=== PATIENT | female | born 1970 | race Hispanic/Latino ===

== ENCOUNTER 2017-11-02 13:03 | Inpatient (IN) | payer MEDICARE ==
--- NOTE | 2017-11-02 13:54 | RAD ---
UPRIGHT PORTABLE CHEST 1 VIEW: HISTORY: A 47-year-old female with a history of nausea and vomiting. FINDINGS: Right ICD. Minimal cardiomegaly. Mild bilateral vascular congestion without confluent pneumonia or overt edema. IMPRESSION: Cardiomegaly with bilateral vascular congestion without other significant acute process. Right impla ntable cardioverter defibrillator. Stable appearance from 09/22/16. POS: [facility]
[2017-11-02 14:21] LABS: Hemoglobin 11.6 g/dL (12.0-16.0); INR-International Normal Ratio 3.2; Mean Corpuscular HGB CONC 32.8 g/dL (32.0-36.0); Mean Corpuscular Hemoglobin 35.1 pg (27.0-31.0); Mean Platelet Volume 11.4 fL (7.4-10.4); PTT 48.7 SEC (22.9-36.1); Platelet Count 64 thou/uL (130-400); Prothrombin Time 34.2 SEC (12.0-14.7); RBC Distribution Width 15.7 % (11.5-14.5); White Blood Cell (WBC) Count 9.2 thou/uL (4.8-10.8)
[2017-11-02 14:34] LABS: Anisocytosis SLIGHT = 6-15 cells (100X) (0-5/hpf); Band 24 % (5-11); Lymphocytes 2 % (21-51); MDiff Complete? YES; Macrocytosis SLIGHT = 6-15 cells (100X) (0-5/hpf); Monocytes 1 % (0-10); Neutrophil 73 % (42-75); PLT Morphology Comment Appears Decreased; Polychromasia SLIGHT = 2-3 cells (100X) (0-2/hpf)
[2017-11-02 14:38] LABS: Anion Gap 25 mmol/L (10-20); BUN (Urea Nitrogen) 43 mg/dL (7.0-18.7); Calc. Creatinine Clearance 0 mL/min (70-130); Calcium 8.8 mg/dL (7.8-10.44); Carbon Dioxide 20 mmol/L (22-29); Chloride 91 mmol/L (98-107); Estimated GFR-MDRD 7; Glucose 165 mg/dL (70-105); Lipase 5 U/L (8-78); Potassium 3.3 mmol/L (3.5-5.1); Sodium 133 mmol/L (136-145)
[2017-11-02 14:49] LABS: CKMB 22.3 ng/mL (0-6.6); Troponin I 0.389 ng/mL (< 0.028)
[2017-11-02] MEDS ORDERED: Aspirin 325 MG TAB ONE (16:35)
[2017-11-02] MEDS ORDERED: cefTRIAXone\\ROCEPHIN 2 GM in Sodium Chloride 0.9% 100 ML IVPB ONE (16:45)
[2017-11-02] MEDS ORDERED: Nitroglycerin 0.4 MG TAB (25 Tab Bottle) SL PRN (18:02)
[2017-11-02] MEDS ORDERED: Bisacodyl 5 MG TAB PO PRN (18:02)
[2017-11-02] MEDS ORDERED: Vancomycin HCl 1 GM in Premix Bag 1 BAG IVPB SCH ×2 (18:15→22:00)
[2017-11-02] MEDS ORDERED: Oseltamivir 6 MG/ML ORAL SUSP PO SCH (18:15)
[2017-11-02] MEDS ORDERED: [UNRECOGNIZED DRUG - REMARK] IVPB PRN (18:16)
[2017-11-02] MEDS ORDERED: Acetaminophen 500 MG TAB ONE (18:26)
[2017-11-02 18:36] LABS: Critical Call Chem Troponin I RESULT DECREASING; Troponin I 0.359 ng/mL (< 0.028)
[2017-11-02] MEDS ORDERED: Dextrose 5% in Water 1,000 ML IV PRN (19:45)
[2017-11-02] MEDS ORDERED: Dextrose 50% Abboject 50 ML SYRINGE SLOW IVP PRN (19:45)
--- NOTE | 2017-11-02 19:59 | HP ---
PRIMARY CARE PHYSICIAN: Unknown. CHIEF COMPLAINT: Chest pain. HISTORY OF PRESENT ILLNESS: Ms. Joseph is a pleasant 47-year-old lady who was seen at [facility] on 11/02/2017. She reports that over the last week, she has had on and off left-sided chest pain, sharp, 10/10 at it s worst, nonradiating, no known aggravating or relieving factors and accompanied by nausea, shortness of breath and cough. She also reports that over the last 2 days, she has had body aches. She reports feeling sick. She r eports nausea and vomiting. She reports shortness of breath. She did not receive the flu vaccine . She denies any sick contacts. She reports that her dialysis session was shortened yesterda y, but is not sure why. She reportedly told the emergency room physician that it felt similar to whe n she had line sepsis. However, she denied having line sepsis in the past. REVIEW OF SYSTEMS: The following complete review of systems was negative, unless otherwise mentioned in the HPI or below: Constitutional: Weight loss or gain, ability to conduct usual activities. Skin: Rash, itching. Eyes: Double vision, pain. ENT/Mouth: Nose bleeding, neck stiffness, pain, tenderness. Cardiovascular: Palpitations, dyspnea on exertion, orthopnea. Respiratory: Shortness of breath, wheezing, cough, hemoptysis, fever or night sweats. Gastrointestinal: Poor appetite, abdominal pain, heartburn, nausea, vomiting, constipation, or diarr hea. Genitourinary: Urgency, frequency, dysuria, nocturia. Musculoskeletal: Pain, swelling. Neurologic/Psychiatric: Anxiety, depression. Allergy/Immunologic: Skin rash, bleeding tendency. PAST MEDICAL HISTORY: Significant for end-stage renal disease on hemodialysis followed by Dr. Laboy; yoon hunter on Tuesday, , and Tuesday; diabetes mellitus type 2; dyslipidemia; hypertension; joanie betic gastroparesis; seizure disorder; symptomatic bradycardia requiring pacemaker placement; cardiac arrest secondary to hyperkalemia; chronic left eye blindness; peripheral vascular disease, status po st left below knee amputation; gastroesophageal reflux disease; and chronic pain. PAST SURGICAL HISTORY: Significant for left below knee amputation, left eye surgery, right second fi nger amputation, amputation of multiple toes on the right side, bilateral tubal ligation, cholecystec donna, dialysis catheter placement and surgeries for clotted dialysis access. ALLERGIES: No known drug allergies. FAMILY HISTORY: Significant for end-stage renal disease. SOCIAL HISTORY: The patient denies tobacco use, alcohol use or recreational drug use. CURRENT MEDICATIONS: Vitamin D3 2000 units daily, phenytoin 150 mg daily, Zofran 4 mg sublingually a s needed, warfarin 2.5 mg daily, benzonatate 100 mg as needed, clonidine 0.1 mg 2 times a day, amlodi pine 5 mg daily, metoprolol 50 mg daily, ProRenal vitamins 1 tablet daily, quetiapine 25 mg at bedtim e. PHYSICAL EXAMINATION: GENERAL: On examination, Ms. Joseph is awake and alert, not in acute distress. VITAL SIGNS: Blood pressure is 102/52, pulse is 89. She is breathing at rate of 22 and saturating 9 3% on 2 liters of oxygen. Temperature is 100.3 degrees Fahrenheit. EYES: No scleral icterus. No conjunctival pallor. She has left corneal opacity. ENT: Moist mucosal membranes, no oropharyngeal erythema or exudates. NECK: Supple, nontender, normal range of movement, trachea is midline. RESPIRATORY: Accessory muscles of breathing are not active. Chest wall movements are symmetric bila terally. LUNGS: Clear to auscultation without wheeze, rhonchi or crepitations CARDIOVASCULAR: S1 and S2 are heard, regular. Peripheral pulses palpable in the right lower extremi ty and both upper extremities. She has a left upper extremity AV fistula. She also has a right-side d pacemaker. ABDOMEN: Soft, nontender, bowel sounds heard, hepatomegaly, no splenomegaly. MUSCULOSKELETAL: Power is 5/5 in both upper extremities as well as right lower extremity. She is st atus post left below knee amputation, status post right second and third toe amputation, status post right second digit amputation. SKIN: No rashes or subcutaneous nodules. LYMPHATIC: No cervical lymphadenopathy. NEUROLOGIC: Cranial nerves II-XII intact. PSYCHIATRIC: Normal mood, normal affect, patient is oriented to person and place, not to time. IMAGING DATA AND LABORATORY DATA: Ms. Joseph's labs and investigations were reviewed. I reviewed her electrocardiogram, which shows normal sinus rhythm, with ST depressions in the lateral leads. I also reviewed her chest x-ray, which does not show any pulmonary infiltrates. She does have vascular congestion. Laboratory investigation show normal white count, macrocytic anemia with hemoglobin 11.6, thrombocyto penia with platelet count 64, INR 3.2, hyponatremia with sodium 133, hypokalemia with potassium 3.3, elevated anion gap of 20, elevated creatinine of 6.3, elevated blood urea nitrogen of 43, troponin I elevated at 0.359, trending down from 0.389, elevated BNP of 2515. I should note that she has a normal white count of 9,200, although she has 73% neutrophils and 24% ba nd neutrophils. ASSESSMENT AND PLAN: Mr. Joseph is a pleasant 47-year-old lady who was seen at [facility] on 11/02/2017. Her problem list includes: 1. Elevated troponin: She had minimal coronary artery disease in 03/2013. The elevated troponin co uld be secondary to non-ST elevation myocardial infarction or secondary to viral myocarditis or secon mignon to sepsis or secondary to demand ischemia. She will be admitted to the hospital for further man agement. She will be started on aspirin. I will order 2D echocardiogram. Cardiology Service is silverio meng consulted. She will be monitored on telemetry. 2. Infection: Suspected. She does not meet the criteria for sepsis. However, she does have elevat ed bands as well as a viral prodrome. She also reports chills. For now, she will be covered with an tibiotics to cover any possible bloodstream infections. She will also be started on Tamiflu. We geovanny l await cultures. 3. End-stage renal disease. Nephrology Service will be consulted for maintenance hemodialysis. 4. Diabetes mellitus: We will start patient on Accu-Cheks, insulin sliding scale. 5. Hypertension: We will monitor vital signs and titrate antihypertensives as needed. Many thanks for allowing me to participate in your patient's care. Please feel free to contact me wi th any questions or concerns. LEVEL OF RISK: High. LEVEL OF COMPLEXITY: High.
[2017-11-02 20:49] LABS: Critical Call Chem Troponin I RESULT DECREASING; Troponin I 0.319 ng/mL (< 0.028)
[2017-11-02] MEDS ORDERED: Vancomycin HCl 750 MG in Sodium Chloride 0.9% 250 ML 250 ML IVPB SCH (22:00)
[2017-11-02] MEDS ORDERED: HOLD VANCOMYCIN FOR LEVEL >20 FS SCH (22:00)
[2017-11-02] MEDS ORDERED: Vancomycin HCl 1.25 GM in Sodium Chloride 0.9% 250 ML 250 ML IVPB SCH (22:00)
[2017-11-02] MEDS ORDERED: Vancomycin HCl 500 MG in Sodium Chloride 0.9% 100 ML IVPB SCH (22:00)
[2017-11-02] MEDS: Acetaminophen 325 MG TAB PO PRN (22:47)
[2017-11-03] MEDS: Piperacillin/Tazobactam 2.25 GM in Sodium Chloride 0.9% 50 ML IVPB SCH ×2 (00:07→08:55)
[2017-11-03] MEDS ORDERED: Ibuprofen 600 MG TAB PO SCH (00:30)
[2017-11-03 00:54] VITALS: BMI 31.0
[2017-11-03] MEDS: Acetaminophen 325 MG TAB PO PRN ×2 (06:13→19:09)
[2017-11-03 06:16] LABS: Anion Gap 23 mmol/L (10-20); BUN (Urea Nitrogen) 51 mg/dL (7.0-18.7); Calc. Creatinine Clearance 14 mL/min (70-130); Calcium 8.2 mg/dL (7.8-10.44); Carbon Dioxide 18 mmol/L (22-29); Estimated GFR-MDRD 6; Glucose 138 mg/dL (70-105); Potassium 3.3 mmol/L (3.5-5.1); Sodium 131 mmol/L (136-145)
[2017-11-03 06:17] LABS: Chloride 93 mmol/L (98-107)
[2017-11-03 06:22] LABS: Band 23 % (5-11); Lymphocytes 5 % (21-51); MDiff Complete? YES; Mean Corpuscular HGB CONC 30.6 g/dL (32.0-36.0); Mean Corpuscular Hemoglobin 32.7 pg (27.0-31.0); Mean Platelet Volume 12.7 fL (7.4-10.4); Monocytes 5 % (0-10); Neutrophil 67 % (42-75); PLT Morphology Comment Appears Decreased; Platelet Count 42 thou/uL (130-400); RBC Distribution Width 16.2 % (11.5-14.5); Red Blood Cell (RBC) Count 3.66 mill/uL (4.20-5.40); White Blood Cell (WBC) Count 10.6 thou/uL (4.8-10.8)
[2017-11-03] MEDS: Oseltamivir 6 MG/ML ORAL SUSP PO SCH (08:53)
[2017-11-03] MEDS ORDERED: Sodium Chloride 0.9% 250 ML 250 ML IVPB SCH (09:00)
[2017-11-03] MEDS ORDERED: Aspirin 325 MG TAB PO SCH (09:00)
[2017-11-03 09:20] LABS: Vancomycin, Random 10.9 ug/mL (See Comment)
--- NOTE | 2017-11-03 09:58 | CON ---
DATE OF CONSULTATION: 11/03/2017 HISTORY OF PRESENT ILLNESS: Ms. Joseph is a 47-year-old White female with known history o f end-stage renal disease and admitted for chest pain and mild shortness of breath. She was also not ed to be febrile. She has been empirically treated with IV antibiotics. This morning, she was noted to be hypotensive. I have ordered to give her a bolus of normal saline at 250 mL per hour. We are currently holding her dialysis due to the hypotension. We are following up this patient for her main tenance hemodialysis. REVIEW OF SYSTEMS: Occasional chest pain, mild shortness of breath. No syncopal episode. Positive for fever. No dysuria, no urinary frequency. No hematochezia, no melena, no hematemesis, no abdomin al pain. Appetite and energy level is decreased. No headache. Decreased visual acuity. No diplopi a. MEDICATIONS: Of 11/03/2017 shows aspirin 325 mg every day, status post flu vaccine, Humalog sliding scale, Reglan p.r.n., status post vancomycin, Tamiflu 30 mg every day, Zosyn 2.25 grams IV q.12 hours . PAST MEDICAL HISTORY: ESRD, currently on maintenance hemodialysis, secondary to hypertension/diabeti c nephropathy, history of hypertension, seizure disorder - history of noncompliance, status post card iac arrest, peripheral vascular disease, history of depression. PAST SURGICAL HISTORY: 1. Status post left BKA. 2. Status post AV fistula placement. 3. Status post cuffed dialysis catheter placement. 4. Status post bilateral tubal ligation. 5. Status post open cholecystectomy. 6. Status post left eye surgery. SOCIAL HISTORY: The patient is . Lives in [place]. Several children. Sedentary lifestyle. S tatus post blood transfusion. No smoking, no alcohol intake, no IV drug abuse. Education, high scho ol. FAMILY HISTORY: Positive family history of ESRD. ALLERGIES: None. TRAUMA: None. IMMUNIZATIONS: Up to date. HOSPITALIZATIONS: Please see past medical history. PHYSICAL EXAMINATION: VITAL SIGNS: Blood pressure is noted at 70/50 with heart rate 78, temperature 100.6, respiratory rat e 22, pulse ox 96%. GENERAL: Noted to be awake, alert, supine, comfortable, decreased visual acuity. HEENT: She has pinkish conjunctivae, anicteric sclerae. NECK: No neck mass, no carotid bruits, no JVD. CHEST: No deformities. LUNGS: Clear breath sounds. No wheezing, no crackles. HEART: Normal sinus rhythm. No murmur, no gallops or rubs. ABDOMEN: Globular, soft, nontender, no masses. EXTREMITIES: No edema, status post left BKA. X-RAY FINDINGS: Chest x-ray shows increased lung markings. LABORATORY DATA: Of 11/03/2017, white count 10.6, hemoglobin 12. Sodium 131, potassium 3.3, chlorid e 93, carbon dioxide 18, BUN 51, creatinine 7.02, glucose 138, calcium 8.2. ASSESSMENT AND PLAN: 1. End-stage renal disease - due to the low blood pressure, we will hold the hemodialysis today. Th e patient is not in overt volume overload. She is oxygenating adequately. In addition, there is no hyperkalemia. My plan is to schedule her for her regular dialysis in a.m. 2. Chest pain. The patient being ruled out for myocardial infarction. 3. Fever, empiric IV antibiotics. This could be a viral versus bacterial etiology. She is on Tamif angel and IV antibiotics. 4. Anemia, no indication for any Epogen this day. Agree with current management.
[2017-11-03] MEDS ORDERED: Sodium Chloride 0.9% 3,000 ML IV SCH ×2 (11:45→15:15)
--- NOTE | 2017-11-03 11:49 | CON ---
DATE OF CONSULTATION: 11/03/2017 REASON FOR CONSULTATION: Slightly increased troponin level in the setting of chest pain and end-stag e renal disease. HISTORY OF PRESENT ILLNESS: Ms. Joseph is a 47-year-old woman with a long history of dialysis. Guy banks has been having some left-sided chest pain that is sharp. It is, she says, 10 out of 10 when it oc curs. It is localizing, take one fingertip and point towards an area in the left side of her chest. She also had some body aches, feeling sick, nausea, vomiting and has low grade fever, and typical an geena. REVIEW OF SYSTEMS: Constitutional: Positive for weakness, fatigue. Vision: No changes. Hearing: No changes. Pulmonary: Positive for some difficulty breathing on occasion. Currently, br eathing well. Cardiac: As outlined above. Gastrointestinal: No nausea, vomiting, diarrhea. Skin: No rashes. Neurologic: No unilateral weakness or numbness. Psychiatric: No unusual depression o r anxiety. PAST MEDICAL HISTORY: 1. End-stage renal disease on chronic hemodialysis Tuesday, , and Tuesday. 2. Diabetes. 3. Hypertension. 4. Minimal coronary artery disease and catheterization several years ago, it will be outlined below. 5. Previous pacemaker insertion for bradycardia. 6. Status post left lower extremity amputation, below the knee. 7. Esophageal reflux. ALLERGIES: None known. FAMILY HISTORY: Significant for end-stage renal disease. SOCIAL HISTORY: No tobacco or alcohol. MEDICATIONS PRIOR TO ADMISSION: 1. Vitamin D. 2. Phenytoin 3. Zofran 4. Warfarin 5. Clonidine. 6. Amlodipine. PHYSICAL EXAMINATION: GENERAL: She is a very pleasant, but chronically ill appearing woman. She looks much older than her chronologic age of 47. VITAL SIGNS: Her blood pressure is 83/59, pulse 86. EYES: Sclerae nonicteric. Mouth, mucous membranes is moist. NECK: Supple, no lymphadenopathy. LUNGS: Clear, no wheezing, rales or rhonchi. CARDIOVASCULAR: Normal S1, normal S2. No murmur, rub or gallop. ABDOMEN: Soft, nontender, no hepatosplenomegaly. EXTREMITIES: Warm, dry, no clubbing or cyanosis. There is no edema. She has below knee amputation on the left, it appears to be nonhealing wound on the right foot. PERTINENT LABORATORY DATA: The troponin level of 0.319, creatinine 7. She has 23% bands. White cou nt is 10.6. Of significance, the temperature is 101.7. IMAGING: EKG, no acute changes. Reviewing the records, she did have a cardiac catheterization done in 03/2017, at that time was found to have only minimal atherosclerosis, 30% proximal LAD, no other s ignificant disease. ASSESSMENT: 1. Chest pain, atypical for angina. 2. Fever. 3. End-stage renal disease. 4. Previous pacemaker insertion. 5. Minimal coronary artery disease and previous catheterization. At this time, it looks like most l ikely the increased troponin level due to demand ischemia. PLAN: 1. She is being treated for infection. 2. Echocardiogram. 3. At some point, stress test will hold off until the fever has resolved.
[2017-11-03] MEDS ORDERED: Ondansetron HCl/PF 4 MG/2 ML Vial SLOW IVP PRN (11:56)
[2017-11-03] MEDS ORDERED: Ondansetron HCl/PF 4 MG/2 ML Vial SLOW IVP SCH (12:00)
--- NOTE | 2017-11-03 14:40 | PDOC.PN ---
- Subjective Encounter Start Date: 11/03/17 Encounter Start Time: 08:20 Pt seen for followup re: bacteremia. denies chest pain or shortness of breath - Objective MAR Reviewed: Yes Vital Signs & Weight: Vital Signs (12 hours) Temp Pulse Resp BP Pulse Ox 11/03/17 11:05 97.0 F L 76 19 75/54 L 95 11/03/17 08:55 98 F 84 18 94 L 11/03/17 03:52 100.6 F H 78 22 H 83/59 L 96 Weight Weight 192 lb 8 oz I&O: 11/02/17 11/03/17 11/04/17 06:59 06:59 06:59 Intake Total 460 Balance 460 Result Diagrams: 11/04/17 05:09 11/04/17 05:09 Additional Labs: Accuchecks 11/03/17 11/03/17 11/03/17 10:52 05:52 00:24 POC Glucose 129 H 146 H 131 H EKG Reviewed by me: Yes (Tele: NSR, ? run of NSVT) Phys Exam - Physical Examination Constitutional: NAD HEENT: PERRLA, moist MMs, sclera anicteric, oral pharynx no lesions Neck: no nodes, no JVD, supple, full ROM Respiratory: no wheezing, no rales, no rhonchi, clear to auscultation bilateral Cardiovascular: RRR, no rub Gastrointestinal: soft, non-tender, positive bowel sounds Musculoskeletal: pulses present s/p L BKA Neurological: moves all 4 limbs Psychiatric: normal affect Deviation from normal: Skin tears R knee, R lateral malleolus Dx/Plan (1) Bacteremia Code(s): R78.81 - BACTEREMIA Status: Acute (2) Hypokalemia Code(s): E87.6 - HYPOKALEMIA Status: Acute (3) Sepsis Code(s): A41.9 - SEPSIS, UNSPECIFIED ORGANISM Status: Acute (4) Elevated troponin I level Code(s): R74.8 - ABNORMAL LEVELS OF OTHER SERUM ENZYMES Status: Acute (5) ESRD (end stage renal disease) on dialysis Code(s): N18.6 - END STAGE RENAL DISEASE; Z99.2 - DEPENDENCE ON RENAL DIALYSIS Status: Chronic - Plan continue antibiotics * . Elevated troponin likely due to demand ischemia. Await Review of Systems - Review of Systems Constitutional: weakness. negative: fever, chills, sweats, malaise Respiratory: negative: Cough, Dry, Shortness of Breath, Hemoptysis, SOB with Excertion, Pleuritic Pain, Sputum, Wheezing Cardiovascular: negative: chest pain, palpitations, orthopnea, paroxysmal nocturnal dyspnea, edema, light headedness Gastrointestinal: Nausea, Vomiting. negative: Abdominal Pain, Diarrhea, Constipation, Melena, Hematochezia Neurological: Weakness. negative: Numbness, Incoordination, Change in Speech, Confusion, Seizures - Medications/Allergies Allergies/Adverse Reactions: Allergies Allergy/AdvReac Type Severity Reaction Status Date / Time No Known Drug Allergies Allergy Verified 11/03/17 11:31 Medications: Current Medications Acetaminophen (Tylenol) 650 mg PO Q4H PRN PRN Reason: Headache/Fever or Pain Last Admin: 11/03/17 06:13 Dose: 650 mg Aspirin (Aspirin Chewable) 81 mg PO DAILY TEENA Bisacodyl (Dulcolax) 10 mg PO DAILYPRN PRN PRN Reason: Constipation Dextrose/Water (Dextrose 50%) 25 gm SLOW IVP PRN PRN PRN Reason: Hypoglycemia Glucagon (Glucagon) 1 mg IM PRN PRN PRN Reason: Hypoglycemia Piperacillin Sod/Tazobactam (Sod 2.25 gm/ Sodium Chloride) 50 mls @ 100 mls/hr IVPB Q12HR [facility] Last Admin: 11/03/17 08:55 Dose: 50 mls Dextrose/Water (D5w) 1,000 mls @ 0 mls/hr IV .Q0M PRN; As Directed PRN Reason: Hypoglycemia Vancomycin HCl 1.25 gm/ Sodium (Chloride) 250 mls @ 166.667 mls/hr IVPB WILLCALL TEENA Vancomycin HCl 1 gm/ Device 200 mls @ 200 mls/hr IVPB WILLCALL TEENA Vancomycin HCl 750 mg/ Sodium (Chloride) 250 mls @ 250 mls/hr IVPB WILLCALL TEENA Vancomycin HCl 500 mg/ Sodium (Chloride) 100 mls @ 100 mls/hr IVPB WILLCALL TEENA Sodium Chloride (Normal Saline 0.9%) 3,000 mls @ 0 mls/hr IV .Q0M TEENA PRN Reason: As Directed Stop: 11/03/17 15:00 Influenza Virus Vaccine (Fluzone Quad [id number] Syringe) 0.5 ml IM .ONCE ONE Stop: 11/04/17 09:01 Insulin Human Lispro (Humalog) 0 units SC .MILD SLIDING SCALE PRN PRN Reason: Mild Correctional Scale Miscellaneous Medication (Pharmacy To Dose) 1 each IVPB PRN PRN PRN Reason: Pharmacy to dose Nitroglycerin (Nitrostat) 0.4 mg SL Q5MIN PRN PRN Reason: Chest Pain Hold Vancomycin For (Level >20) 0 each FS .AT DIALYSIS [facility] Ondansetron HCl (Zofran) 4 mg SLOW IVP Q6H PRN PRN Reason: Nausea/Vomiting Last Admin: 11/03/17 14:24 Dose: 4 mg Oseltamivir Phosphate (Tamiflu) 30 mg PO DAILY [facility] Stop: 11/07/17 09:01 Last Admin: 11/03/17 08:53 Dose: 30 mg Sodium Chloride (Flush - Normal Saline) 10 ml IVF Q12HR [facility] Last Admin: 11/03/17 09:08 Dose: 10 ml Sodium Chloride (Flush - Normal Saline) 10 ml IVF PRN PRN PRN Reason: Saline Flush
--- NOTE | 2017-11-03 15:21 | CON ---
DATE OF SERVICE: 11/03/2017 SERVICE: Pulmonary Medicine. REASON FOR CONSULTATION: IMCU patient. HISTORY OF PRESENT ILLNESS: The patient is a 47-year-old female with end-stage renal diselillian banks. She was in her usual state of health up until about one week prior to admission at which point amisha banks started having increasing fatigue, fevers, or chills. She presented to dialysis, but this had to b e stopped early, but she is not quite certain why. [facility] low blood pressures ultimately. She is also having some difficulties with chest pain. This al l has resolved. At this point, she is returning to her usual state of health, though her blood press ures remained marginal. Blood cultures were performed demonstrating Staph aureus in one blood cultur e and gram positive cocci in clusters in the other. She is on appropriate antibiotics at this time. She has no current distress. She does not feel lightheaded, nausea or vomiting. Creatinine is at b aseline. Her brain is working just fine. Lactate on presentation was unremarkable. PAST MEDICAL HISTORY: 1. End-stage renal disease, on hemodialysis, TTS. 2. Type 2 diabetes mellitus. 3. Dyslipidemia. 4. Hypertension (baseline blood pressure is in 180s). 5. Gastroparesis. 6. Seizure disorder. 7. History of bradycardia, status post pacemaker placement. 8. History of cardiac arrest secondary to hyperkalemia. 9. Left eye blindness. 10. Peripheral vascular disease status post multiple amputations. PAST SURGICAL HISTORY: 1. Left BKA. 2. Left eye surgery. 3. Right second finger amputation. 4. Right second and third toe amputations. 5. Bilateral tubal ligation. 6. Cholecystectomy. 7. Dialysis catheter placement, multiple. 8. Dialysis graft in the left arm. FAMILY HISTORY: Noncontributory. SOCIAL HISTORY: Negative for alcohol, tobacco or illicit drug use. ALLERGIES: No known drug allergies. MEDICATIONS: List of her inpatient medications was reviewed. There are no specific updates were bet ter at this time. REVIEW OF SYSTEMS: General, head, ears, eyes, nose, throat, cardiovascular, respiratory, GI, , mus culoskeletal, neurologic and skin is negative except as mentioned in the HPI. PHYSICAL EXAMINATION: VITAL SIGNS: Afebrile currently with T-max of 101.7 overnight, pulse 76, blood pressure 83/59, respi rations 19, saturation 95% on 2 liters nasal cannula. GENERAL: The patient is awake, alert, in no apparent distress. LUNGS: Excellent air entry. Some rhonchi are present, but cleared with cough. No prolonged expirat ory phase or wheezing is appreciated. HEART: Normal rate, regular. ABDOMEN: Soft, nontender, nondistended, bowel sounds positive. MUSCULOSKELETAL: No cyanosis or clubbing. There is no pitting in the bilateral lower extremities. If anything, she is to touch drive. GENITOURINARY: No Winkler. NEUROLOGIC: Grossly nonfocal. LABORATORY DATA: 1. Sodium 131, potassium 3.3, anion gap 23, bicarbonate 18. Creatinine 7.02. Basic metabolic profi le was otherwise unremarkable. Troponin is up trending to 0.319. Vancomycin is 10.9, this is a rand study. 2. Staph aureus is growing in one blood culture. Gram positive cocci in clusters are present in the other. Influenza A and B are both unremarkable. ASSESSMENT: 1. Acute hypoxic respiratory failure. 2. Severe sepsis, improving. 3. Bacteremia secondary to Staphylococcus aureus, sensitivity is pending. 4. Non-ST elevation myocardial infarction. 5. End-stage renal disease, on hemodialysis. 6. Type 2 diabetes mellitus. PLAN: The patient is doing fine from a cardiovascular and respiratory standpoint. At this point, th ere are no signs of end organ damage. She does have marginal blood pressures, but seems to be tolera ting them just fine. I will give her 2 liters of fluid. I will also repeat lactate. If this remain s negative, and her blood pressures firm up to touch, I will leave where she. If lactate is elevated , I will give a third liter of fluids, and consider putting in a central line and initiating pressors if the CVP is low. For the time being, she looks perfectly comfortable and is not having any proble ms with ongoing chest discomfort or dizziness. As such, we will continue her conservative care. Agr ee with antibiotics since we already have should likely be able to be escalated only to vancomycin mo notherapy. I will have Dr. Carlson however in the way.
[2017-11-03 15:31] LABS: Lactic Acid 1.2 mmol/L (0.5-2.2)
--- NOTE | 2017-11-04 00:19 | CON ---
DATE OF CONSULTATION: 11/03/2017 REASON FOR CONSULTATION: Bacteremia. HISTORY OF PRESENT ILLNESS: A 47-year-old patient whom I had seen in the past for I believe the foot infection who has a history of type 2 diabetes mellitus with end-stage renal disease. The patient h as a very extensive history of admissions to this hospital for various complications. Last admission to this hospital on 09/22/2016 for UTI secondary to E. coli and sepsis. This time she was admitted by the hospitalist service with new onset of left-sided chest pain, some nausea and dyspnea as well a s cough with myalgias, had some vomiting as well. Initial exam showed BP 102/52, pulse 89, respirati ons 22, O2 sat 92%, temperature 100.3. Lungs are clear to auscultation. Heart exam showed S1, S2 wi th regular rate. Abdomen is soft. She is moving all extremities. LABORATORY: Initially with a white cell count 9.2, hemoglobin 11, MCV 107, platelets 64,000, 73% darleen trophils, 2% lymphocytes, 24% bands. Chemistry with expected findings from the patient, end-stage re nal disease and patient was admitted and had 2 sets of blood cultures positive for Staphylococcus aur eus which is methicillin susceptible strain. Currently, Ms. Joseph is awake, oriented. She denies any headaches, nausea has improved. No dyspn ea or chest pain. She has low back pain which reportedly started about 3-4 days ago and she rates it 10/10. She does not make much urine and no abdominal pain, no diarrhea, no bleeding. No other neur ological symptoms. Type 2 diabetes, end-stage renal disease, hemodialysis through an AV graft left upper extremity, hypertension, gastroparesis, seizure, bradycardia, symptomatic with pacemaker placem ent recently, dense cataract left eye with blindness, PVD, prior left BKA. PAST SURGICAL HISTORY: As above including cholecystectomy, dialysis access placements and removals. ALLERGIES: None. FAMILY HISTORY: Type 2 diabetes and renal disease. SOCIAL HISTORY: Never a smoker. CURRENT MEDICATIONS: Aspirin, Dulcolax, dextrose, glucagon, influenza vaccine, insulin, Nitrostat, m etoclopramide, oseltamivir, Zosyn, vancomycin. PHYSICAL EXAMINATION: VITAL SIGNS: T-max 101.7, blood pressure is 83/59, pulse 76, respirations 19, O2 sat 95% on 2 liters nasal cannula. SKIN: Shows the left arm dialysis graft access. No inflammatory changes noted. No Winkler catheter, peripheral IV access. HEENT: She has a dense opacification, left intraocular media, right eye appears normal. Oral cavity with only a few remaining teeth in the mandible with a lot of decay and gum disease. NECK: Supple. LUNGS: With symmetric breath sounds which are clear. S1, S2, regular rate. No obvious murmurs. ABDOMEN: Soft and not distended or tender. EXTREMITIES: No ascites, moderate tenderness in the lower back area. Remaining foot without any les ions at this time. NEUROLOGIC: She is awake, oriented, follows commands, moves all extremities equally. LABORATORY DATA: White cell count 10.6, hemoglobin 12, platelets 42,000, 67% neutrophils, 5% lymphoc ytes. Sodium 131, creatinine 7.02, potassium 3.3 and 2 sets of blood cultures positive for methicill in susceptible Staphylococcus aureus by verigene testing. IMAGING STUDIES: Include a chest x-ray from admission with cardiomegaly, vascular congestion and her e it is stated as an AICD, but it is more likely to be a pacemaker. ASSESSMENT: 1. Diabetes mellitus type 2 with end-stage renal disease on hemodialysis through an arteriovenous gr aft. 2. Recent pacemaker placement. 3. Methicillin susceptible Staphylococcus aureus bacteremia. DISCUSSION: Differential diagnosis includes colonization of the pacemaker leads/endocarditis versus colonization of the dialysis graft access. The patient may develop other areas of distant disseminat ion including lungs, spine, and in other joints. In that regard, the lower back pain will have to co ntinue to be followed and if there is persistence for exacerbation, then imaging of the area with a n oncontrast MRI would be recommended. The management will include cefazolin given in adjusted doses a t dialysis. While in the hospital cefazolin daily 1 gram to be given after dialysis on dialysis days and otherwise on a regular schedule on the other nondialysis days.
[2017-11-04] MEDS ORDERED: Morphine 2 MG/ML SYRINGE SLOW IVP SCH (00:45)
[2017-11-04 01:41] LABS: CKMB 27.8 ng/mL (0-6.6)
[2017-11-04] MEDS: Acetaminophen 325 MG TAB PO PRN (05:52)
[2017-11-04 06:11] LABS: Anion Gap 22 mmol/L (10-20); BUN (Urea Nitrogen) 62 mg/dL (7.0-18.7); Calc. Creatinine Clearance 14 mL/min (70-130); Calcium 8.1 mg/dL (7.8-10.44); Carbon Dioxide 18 mmol/L (22-29); Chloride 97 mmol/L (98-107); Estimated GFR-MDRD 6; Glucose 103 mg/dL (70-105); Potassium 3.2 mmol/L (3.5-5.1); Sodium 134 mmol/L (136-145)
[2017-11-04 06:40] LABS: Band 9 % (5-11); Eosinophils 1 % (0-10); Hemoglobin 11.4 g/dL (12.0-16.0); Lymphocytes 6 % (21-51); MDiff Complete? YES; Macrocytosis SLIGHT = 6-15 cells (100X) (0-5/hpf); Mean Corpuscular Hemoglobin 34.8 pg (27.0-31.0); Metamyelocyte 2 % (0-0); Monocytes 3 % (0-10); Neutrophil 79 % (42-75); PLT Morphology Comment Appears Decreased; Platelet Count 52 thou/uL (130-400); RBC Distribution Width 16.4 % (11.5-14.5); Red Blood Cell (RBC) Count 3.28 mill/uL (4.20-5.40); White Blood Cell (WBC) Count 9.3 thou/uL (4.8-10.8)
[2017-11-04] MEDS: Oseltamivir 6 MG/ML ORAL SUSP PO SCH (08:57)
[2017-11-04] MEDS ORDERED: FLU VACC QS2017-18 36 mo. & older 0.5 ML SYRINGE IM ONE (09:00)
[2017-11-04] MEDS ORDERED: CEFAZOLIN 1 GM in Sodium Chloride 0.9% 100 ML IVPB SCH (09:00)
[2017-11-04] MEDS: CEFAZOLIN 1 GM, Syringe 2.5 ML in Sterile Water 7.5 ML SLOW IVP SCH (09:06)
--- NOTE | 2017-11-04 09:45 | PRG ---
DATE OF SERVICE: 11/04/2017 RENAL MEDICINE SOCIAL HISTORY: Ms. Joseph is a 47-year-old female with ESRD and admitted for sepsis synd arnold. Currently on IV antibiotics. Due to her persistent low blood pressure, my plan is to hold off the dialysis today. We will reevaluate her tomorrow. If needed, we may need to start on pressor ceja pport, so we can dialyze her. Currently, I can hold off the dialysis today. The patient is feeling lethargic. PHYSICAL EXAMINATION: VITAL SIGNS: Blood pressure 85/41, heart rate 70, respiratory rate 16, temperature 98.8, and pulse o x 100%. GENERAL: Awake, supine, lethargic, not in overt distress. SKIN: Adequate turgor. HEENT: She has pinkish conjunctivae, anicteric sclerae. NECK: No neck mass, no carotid bruits, no JVD. EYES: Decreased visual acuity in left eye. LUNGS: Clear breath sounds. No wheezing, no crackles. HEART: Normal sinus rhythm. No murmurs, gallops or rubs. ABDOMEN: Globular, soft, nontender. No masses. EXTREMITIES: No edema, status post left BKA. MEDICATIONS: Medications of 11/04/2017 was reviewed. LABORATORY DATA: Laboratories of 11/04/2017; white count 9.2, hemoglobin 11.4, sodium 134, potassium 3.2, chloride 97, carbon dioxide 18, BUN 62, creatinine 7.24, troponin I 0.110, calcium 8.1. Blood culture shows Staph aureus. ASSESSMENT AND PLAN: 1. Staph bacteremia - on intravenous Ancef, Infectious Disease following. 2. Sepsis syndrome - continue supportive care, IV antibiotics as needed. 3. Hypotension. Continue supportive care, clinically asymptomatic. We will simply observe. If nee ded, start pressor support. 4. End-stage renal disease. We will hold off dialysis today due to the low blood pressure. I will reevaluate her again in a.m. for the need for dialysis. Overall, prognosis remains guarded.
--- NOTE | 2017-11-04 12:26 | PDOC.PN ---
- Subjective Encounter Start Date: 11/04/17 Encounter Start Time: 09:00 Pt seen for followup re: bacteremia. Denies chest pain or shortness of breath. - Objective Vital Signs & Weight: Vital Signs (12 hours) Temp Pulse Resp BP Pulse Ox 11/04/17 11:30 98.0 F 71 20 81/52 L 100 11/04/17 08:50 98.2 F 72 18 83/50 L 95 11/04/17 07:02 97 11/04/17 03:28 98.8 F 70 16 85/41 L 100 11/04/17 02:43 97 Weight Admit Weight 192 lb 8 oz Weight 198 lb 8 oz I&O: 11/03/17 11/04/17 11/05/17 06:59 06:59 06:59 Intake Total 460 4350 Balance 460 4350 Result Diagrams: 11/04/17 05:09 11/04/17 05:09 Additional Labs: Accuchecks 11/04/17 11/04/17 11/03/17 11:00 05:42 20:24 POC Glucose 88 106 120 H 11/03/17 17:00 POC Glucose 129 H Phys Exam - Physical Examination Constitutional: NAD HEENT: moist MMs Neck: supple Respiratory: clear to auscultation bilateral Cardiovascular: RRR Gastrointestinal: soft s/p L BKA Neurological: moves all 4 limbs Psychiatric: normal affect Dx/Plan (1) Bacteremia Code(s): R78.81 - BACTEREMIA Status: Acute (2) Hypokalemia Code(s): E87.6 - HYPOKALEMIA Status: Acute (3) Sepsis Code(s): A41.9 - SEPSIS, UNSPECIFIED ORGANISM Status: Acute (4) Elevated troponin I level Code(s): R74.8 - ABNORMAL LEVELS OF OTHER SERUM ENZYMES Status: Acute (5) ESRD (end stage renal disease) on dialysis Code(s): N18.6 - END STAGE RENAL DISEASE; Z99.2 - DEPENDENCE ON RENAL DIALYSIS Status: Chronic - Plan * . Appreciate ID service input. Continue Ancef. Dialysis per nephrology service. Cardiology following re: demand ischemia. Review of Systems - Review of Systems Constitutional: weakness. negative: fever, chills, sweats, malaise Respiratory: negative: Cough, Dry, Shortness of Breath, Hemoptysis, SOB with Excertion, Pleuritic Pain, Sputum, Wheezing Cardiovascular: negative: chest pain, palpitations, orthopnea, paroxysmal nocturnal dyspnea, edema, light headedness Gastrointestinal: negative: Nausea, Vomiting, Abdominal Pain, Diarrhea, Constipation, Melena, Hematochezia Musculoskeletal: Back Pain. negative: Neck Pain, Shoulder Pain, Arm Pain, Hand Pain, Leg Pain, Foot Pain - Medications/Allergies Allergies/Adverse Reactions: Allergies Allergy/AdvReac Type Severity Reaction Status Date / Time No Known Drug Allergies Allergy Verified 11/03/17 11:31 Medications: Current Medications Acetaminophen (Tylenol) 650 mg PO Q4H PRN PRN Reason: Headache/Fever or Pain Last Admin: 11/04/17 05:52 Dose: 650 mg Acetaminophen/Codeine Phosphate (Tylenol #3) 1 tab PO TID PRN PRN Reason: Pain Aspirin (Aspirin Chewable) 81 mg PO DAILY [facility] Last Admin: 11/04/17 08:58 Dose: 81 mg Bisacodyl (Dulcolax) 10 mg PO DAILYPRN PRN PRN Reason: Constipation Dextrose/Water (Dextrose 50%) 25 gm SLOW IVP PRN PRN PRN Reason: Hypoglycemia Glucagon (Glucagon) 1 mg IM PRN PRN PRN Reason: Hypoglycemia Dextrose/Water (D5w) 1,000 mls @ 0 mls/hr IV .Q0M PRN; As Directed PRN Reason: Hypoglycemia Cefazolin Sodium 1 gm/ Syringe (2.5 ml/ Sterile Water) 10 mls @ 120 mls/hr SLOW IVP QAM [facility] Last Admin: 11/04/17 09:06 Dose: 10 mls Insulin Human Lispro (Humalog) 0 units SC .MILD SLIDING SCALE PRN PRN Reason: Mild Correctional Scale Nitroglycerin (Nitrostat) 0.4 mg SL Q5MIN PRN PRN Reason: Chest Pain Ondansetron HCl (Zofran) 4 mg SLOW IVP Q6H PRN PRN Reason: Nausea/Vomiting Last Admin: 11/03/17 14:24 Dose: 4 mg Oseltamivir Phosphate (Tamiflu) 30 mg PO DAILY [facility] Stop: 11/07/17 09:01 Last Admin: 11/04/17 08:57 Dose: 30 mg Sodium Chloride (Flush - Normal Saline) 10 ml IVF Q12HR [facility] Last Admin: 11/04/17 09:07 Dose: 10 ml Sodium Chloride (Flush - Normal Saline) 10 ml IVF PRN PRN PRN Reason: Saline Flush
--- NOTE | 2017-11-04 15:24 | PRG ---
DATE OF SERVICE: 11/04/2017 SERVICE: Pulmonary Medicine. INTERVAL HISTORY: The patient is doing fine from a respiratory standpoint. She has on and off back discomfort, and chest discomfort, which is where most of her issues are coming from. That being said , her blood pressures are firmed up very nicely. She denies any current fevers, chills, or overnight events. PHYSICAL EXAMINATION: VITAL SIGNS: Afebrile, pulse 72, blood pressure 83/50, respirations 18, and saturation 95% on 2 lite rs nasal cannula. GENERAL: Patient is awake, alert, in no apparent distress. LUNGS: Decent air entry. Dependent crackles are minimal. HEART: Normal rate, regular. ABDOMEN: Soft, nontender, nondistended. Bowel sounds are positive. MUSCULOSKELETAL: No cyanosis or clubbing. No pitting in the bilateral lower extremities. NEUROLOGIC: Grossly nonfocal. LABORATORY DATA: WBC 9.3, hemoglobin 11.4, and platelets are 52,000. Band count has dropped to 9%, total neutrophil count has improved. INR 3.2. Creatinine 7.24, BUN 62 and up trending. Bicarbonate 18, potassium 3.2. Troponin is down trending to 0.11. Random vancomycin is 10.9. Two out of two b lood cultures are growing Staph aureus. Influenza A and B are unremarkable. I am not aware of any s ensitivities that had been performed. ASSESSMENT: 1. Acute hypoxic respiratory failure. 2. Severe sepsis. 3. Bacteremia secondary Staphylococcus aureus, sensitivities pending so far as I am aware. 4. Non-ST elevation myocardial infarction. 5. End-stage renal disease, on hemodialysis. 6. Type 2 diabetes mellitus. PLAN: The patient is doing okay from a respiratory standpoint. Mentation remains excellent. She do es not have any end organ damage identified outside of her kidney injury, which is chronic. As such, we will continue to minimize fluids moving forward. If she has any onset of confusion, or dizziness , we may need to give her a couple liters of fluid, transduce a CVP, and get her pressors in the ICU, but as long as she seems to be tolerating her current blood pressures, we will not be getting aggres sive. Dr. Carlson is currently directing antibiotics. Blood cultures will be repeated tomorrow hebert urena to verify she has cleared her bacteremia.
--- NOTE | 2017-11-04 19:39 | PRG ---
DATE OF SERVICE: 11/04/2017 SUBJECTIVE: Ms. Joseph has had a lot of back and chest pain last night, but she feels better today . OBJECTIVE: VITAL SIGNS: Blood pressure is still low earlier, reported at 81/47 but the most recent systolic blo od pressure is recorded at 140. LUNGS: Clear. CARDIAC: Normal S1, normal S2. ABDOMEN: Soft, nontender. EXTREMITIES: There is no edema. LABORATORY DATA: Troponin 0.11, which is really probably still within normal range with the patient on dialysis. Echocardiogram showed normal left ventricular function. There is some calcium in the mitral valve st ructure balance and any definite evidence of vegetation. Blood cultures she had 2 out of 2 positive for Staph aureus. ASSESSMENT: 1. End-stage renal disease. 2. Staphylococcus bacteremia always concerned about the possibility of pacemaker lead infection. 3. End-stage renal disease. PLAN: 1. Continue antibiotics. 2. Continue consideration for transesophageal echo early next week.
[2017-11-05 03:56] LABS: Anion Gap 23 mmol/L (10-20); BUN (Urea Nitrogen) 72 mg/dL (7.0-18.7); Calc. Creatinine Clearance 12 mL/min (70-130); Calcium 8.3 mg/dL (7.8-10.44); Carbon Dioxide 17 mmol/L (22-29); Chloride 96 mmol/L (98-107); Estimated GFR-MDRD 5; Glucose 112 mg/dL (70-105); Sodium 133 mmol/L (136-145)
[2017-11-05 03:59] LABS: Band 1 % (5-11); Eosinophils 3 % (0-10); Hemoglobin 10.8 g/dL (12.0-16.0); Lymphocytes 14 % (21-51); MDiff Complete? YES; Mean Corpuscular HGB CONC 31.3 g/dL (32.0-36.0); Mean Corpuscular Hemoglobin 34.3 pg (27.0-31.0); Mean Platelet Volume 12.2 fL (7.4-10.4); Monocytes 3 % (0-10); Neutrophil 79 % (42-75); PLT Morphology Comment Appears Decreased; Platelet Count 62 thou/uL (130-400); RBC Distribution Width 16.8 % (11.5-14.5); Red Blood Cell (RBC) Count 3.16 mill/uL (4.20-5.40)
--- NOTE | 2017-11-05 10:07 | PRG ---
DATE OF SERVICE: 11/05/2017 RENAL MEDICINE SUBJECTIVE: Ms. Joseph is a 47-year-old female with ESRD and admitted for sepsis. She is currently being treated with IV antibiotics. Blood pressure has been remaining on the low side. Guy banks is currently at the dialysis and I am at the bedside supervising her dialysis. I am doing minimal fluid removal or almost no fluid removal due to the low blood pressure. She remains asymptomatic wit h dialysis. PHYSICAL EXAMINATION: VITAL SIGNS: Blood pressure is 91/42, heart rate 72, respiratory rate 20, temperature 98.6, pulse ox imetry 96%. GENERAL: Awake, supine, comfortable, not in distress. SKIN: Adequate turgor. HEENT: She has pinkish conjunctivae, anicteric sclerae. NECK: No neck mass, no carotid bruits, no JVD. Decreased visual acuity in left eye. LUNGS: Clear breath sounds. No wheezing, no crackles. HEART: Normal sinus rhythm. No murmur, no gallops, no rubs. ABDOMEN: Globular, soft, nontender. No masses. EXTREMITIES: No edema, no deformities. MEDICATIONS: Medications of 11/05/2017 was reviewed. LABORATORY DATA: Laboratories of 11/05/2017; white count 9, hemoglobin 10.8, hematocrit 34.6. Sodiu m 133, potassium 3, chloride 96, carbon dioxide 17, BUN 72, creatinine 8.05, glucose 112, and calcium 8.3. ASSESSMENT AND PLAN: 1. Mild hypokalemia - we are using a 3-0 potassium bath with current dialysis. 2. End-stage renal disease. Continue current hemodialysis regimen, minimal or no fluid removal due to the low blood pressure. Hopefully, once the hemodynamics stabilizes with this patient, we can rem ove fluid with next dialysis regimen. 3. Sepsis/bacteremia on IV antibiotics. ID is following. 4. Overall, agree with current management.
--- NOTE | 2017-11-05 11:31 | PDOC.PN ---
- Subjective Encounter Start Date: 11/05/17 Encounter Start Time: 08:20 Pt seen for followup re: bacteremia. Has ongoing back pain, no new complaints. - Objective MAR Reviewed: Yes Vital Signs & Weight: Vital Signs (12 hours) Temp Pulse Resp BP Pulse Ox 11/05/17 08:00 98.6 F 72 20 91/42 L 96 11/05/17 04:00 99.3 F 77 22 H 106/46 L 97 11/04/17 23:53 98.6 F 74 22 H 89/55 L 100 Weight Admit Weight 192 lb 8 oz Weight 202 lb 9.6 oz I&O: 11/04/17 11/05/17 11/06/17 06:59 06:59 06:59 Intake Total 4350 110 Balance 4350 110 Result Diagrams: 11/05/17 03:23 11/05/17 03:23 Additional Labs: Accuchecks 11/05/17 11/05/17 11/04/17 06:05 05:02 20:18 POC Glucose 103 113 H 125 H 11/04/17 11/04/17 16:02 11:00 POC Glucose 121 H 88 EKG Reviewed by me: Yes (Tele: audra hardy) Phys Exam - Physical Examination Constitutional: NAD HEENT: moist MMs Neck: supple Respiratory: clear to auscultation bilateral Cardiovascular: irregular Gastrointestinal: soft s/p L BKA Neurological: moves all 4 limbs Psychiatric: normal affect Dx/Plan (1) Bacteremia Code(s): R78.81 - BACTEREMIA Status: Acute (2) Hypokalemia Code(s): E87.6 - HYPOKALEMIA Status: Acute (3) Sepsis Code(s): A41.9 - SEPSIS, UNSPECIFIED ORGANISM Status: Acute (4) Elevated troponin I level Code(s): R74.8 - ABNORMAL LEVELS OF OTHER SERUM ENZYMES Status: Acute (5) ESRD (end stage renal disease) on dialysis Code(s): N18.6 - END STAGE RENAL DISEASE; Z99.2 - DEPENDENCE ON RENAL DIALYSIS Status: Chronic - Plan continue antibiotics * . Continue IV antibiotics as below. Cardiology following re; demand ischemia. Dialysis per nephrology service. Review of Systems - Review of Systems Musculoskeletal: Back Pain. negative: Neck Pain, Shoulder Pain, Arm Pain, Hand Pain, Leg Pain, Foot Pain Neurological: negative: Weakness, Numbness, Incoordination, Change in Speech, Confusion, Seizures - Medications/Allergies Allergies/Adverse Reactions: Allergies Allergy/AdvReac Type Severity Reaction Status Date / Time No Known Drug Allergies Allergy Verified 11/03/17 11:31 Medications: Current Medications Acetaminophen (Tylenol) 650 mg PO Q4H PRN PRN Reason: Headache/Fever or Pain Last Admin: 11/04/17 05:52 Dose: 650 mg Acetaminophen/Codeine Phosphate (Tylenol #3) 1 tab PO TID PRN PRN Reason: Pain Aspirin (Aspirin Chewable) 81 mg PO DAILY [facility] Last Admin: 11/05/17 07:41 Dose: Not Given Bisacodyl (Dulcolax) 10 mg PO DAILYPRN PRN PRN Reason: Constipation Dextrose/Water (Dextrose 50%) 25 gm SLOW IVP PRN PRN PRN Reason: Hypoglycemia Glucagon (Glucagon) 1 mg IM PRN PRN PRN Reason: Hypoglycemia Dextrose/Water (D5w) 1,000 mls @ 0 mls/hr IV .Q0M PRN; As Directed PRN Reason: Hypoglycemia Cefazolin Sodium 1 gm/ Syringe (2.5 ml/ Sterile Water) 10 mls @ 120 mls/hr SLOW IVP 1200 TEENA Insulin Human Lispro (Humalog) 0 units SC .MILD SLIDING SCALE PRN PRN Reason: Mild Correctional Scale Nitroglycerin (Nitrostat) 0.4 mg SL Q5MIN PRN PRN Reason: Chest Pain Ondansetron HCl (Zofran) 4 mg SLOW IVP Q6H PRN PRN Reason: Nausea/Vomiting Last Admin: 11/03/17 14:24 Dose: 4 mg Sodium Chloride (Flush - Normal Saline) 10 ml IVF Q12HR [facility] Last Admin: 11/05/17 07:42 Dose: Not Given Sodium Chloride (Flush - Normal Saline) 10 ml IVF PRN PRN PRN Reason: Saline Flush
[2017-11-05] MEDS: CEFAZOLIN 1 GM, Syringe 2.5 ML in Sterile Water 7.5 ML SLOW IVP SCH ×2 (11:36→12:35)
[2017-11-05] MEDS: Acetaminophen/Codeine 30-300mg Tablet PO PRN ×2 (12:30→21:24)
[2017-11-06] MEDS ORDERED: Sodium Chloride 0.9% 250 ML 250 ML IVPB SCH (08:15)
[2017-11-06 08:44] VITALS: BP 61/32
[2017-11-06] MEDS ORDERED: Albumin 5% 500 ML ONE (09:04)
[2017-11-06] MEDS ORDERED: Midodrine HCl 5 MG TAB PO SCH (09:30)
[2017-11-06] MEDS ORDERED: Norepinephrine 8 MG/0.9% NS 250 ML IVPB SCH (10:00)
[2017-11-06 10:52] LABS: Hemoglobin 10.2 g/dL (12.0-16.0); Mean Corpuscular HGB CONC 30.5 g/dL (32.0-36.0); Mean Corpuscular Hemoglobin 33.7 pg (27.0-31.0); Mean Platelet Volume 8.7 fL (7.4-10.4); Platelet Count 66 thou/uL (130-400); RBC Distribution Width 17.2 % (11.5-14.5); Red Blood Cell (RBC) Count 3.04 mill/uL (4.20-5.40); White Blood Cell (WBC) Count 7.1 thou/uL (4.8-10.8)
--- NOTE | 2017-11-06 10:54 | PDOC.PN ---
- Subjective Encounter Start Date: 11/06/17 Encounter Start Time: 10:52 Patient seen and examined, overnight patient's BP has been low, SBP in the 60s, patient given fluid bolus, now being transferred to ICU for pressors, remains full code. No family at bedside. - Objective Vital Signs & Weight: Vital Signs (12 hours) Temp Pulse Resp BP Pulse Ox 11/06/17 09:30 98.3 F 66 18 96 11/06/17 08:43 70 18 61/32 L 95 11/06/17 08:00 99.6 F 70 18 95 11/06/17 07:12 99.6 F 71 22 H 67/34 L 90 L 11/06/17 03:29 99.4 F 75 14 106/60 93 L 11/06/17 00:00 97.2 F L 75 20 82/42 L 97 Weight Admit Weight 192 lb 8 oz Weight 208 lb 15.971 oz Most Recent Monitor Data Heart Rate from ECG 68 NIBP 58/29 NIBP BP-Mean 36 Respiration from ECG 21 SpO2 96 I&O: 11/05/17 11/06/17 11/07/17 06:59 06:59 06:59 Intake Total 110 300 0 Output Total 0 Balance 110 300 0 Result Diagrams: 11/06/17 10:39 11/05/17 03:23 Additional Labs: Accuchecks 11/06/17 11/05/17 11/05/17 06:35 21:13 16:44 POC Glucose 144 H 102 86 11/05/17 12:23 POC Glucose 88 Phys Exam - Physical Examination Constitutional: NAD HEENT: PERRLA, moist MMs Neck: no nodes Respiratory: no wheezing rapid breathing rate Cardiovascular: RRR, no significant murmur Gastrointestinal: soft, non-tender Musculoskeletal: no edema, pulses present withdraws to pain, not following commands Lymphatic: no nodes Skin: no rash, normal turgor Dx/Plan (1) Septic shock Code(s): A41.9 - SEPSIS, UNSPECIFIED ORGANISM; R65.21 - SEVERE SEPSIS WITH SEPTIC SHOCK Status: Acute (2) Hypotension Status: Acute (3) Bacteremia Code(s): R78.81 - BACTEREMIA Status: Acute (4) Hypokalemia Code(s): E87.6 - HYPOKALEMIA Status: Acute (5) Hemodialysis patient Code(s): Z99.2 - DEPENDENCE ON RENAL DIALYSIS Status: Acute (6) Sepsis Code(s): A41.9 - SEPSIS, UNSPECIFIED ORGANISM Status: Acute (7) UTI (urinary tract infection) Status: Acute Qualifiers: Urinary tract infection type: acute cystitis Hematuria presence: without hematuria Qualified Code(s): N30.00 - Acute cystitis without hematuria - Plan * Patient given fluid bolus for low BP * transfer to ICU * stat labs pending * no family at bedside, remains full code, very poor prognosis * continue with abx and aggressive medical management for now * will start pressors as well for BP control
[2017-11-06] MEDS: Norepinephrine 8 MG in Sodium Chloride 0.9% 250 ML 250 ML IVPB SCH ×2 (11:00→20:40)
[2017-11-06 11:14] LABS: Albumin 2.7 g/dL (3.5-5.0)
[2017-11-06 11:15] LABS: Chloride 102 mmol/L (98-107); Sodium 137 mmol/L (136-145)
[2017-11-06 11:16] LABS: Calcium 8.6 mg/dL (7.8-10.44); Glucose 140 mg/dL (70-105)
[2017-11-06 11:17] LABS: Globulin 3.3 g/dL (2.4-3.5)
[2017-11-06 11:18] LABS: Anion Gap 32 mmol/L (10-20); Anisocytosis SLIGHT = 6-15 cells (100X) (0-5/hpf); Band 8 % (5-11); Bilirubin, Total 0.4 mg/dL (0.2-1.2); Lymphocytes 10 % (21-51); MDiff Complete? YES; Metamyelocyte 6 % (0-0); Monocytes 8 % (0-10); Myelocyte 2 % (0-0); Neutrophil 66 % (42-75); PLT Morphology Comment Appears Decreased; Polychromasia SLIGHT = 2-3 cells (100X) (0-2/hpf)
[2017-11-06 11:19] LABS: Alkaline Phosphatase 171 U/L (40-150)
[2017-11-06 11:20] LABS: Calc. Creatinine Clearance 19 mL/min (70-130); Estimated GFR-MDRD 8
[2017-11-06 11:21] LABS: BUN (Urea Nitrogen) 39 mg/dL (7.0-18.7)
[2017-11-06 11:22] LABS: ALT (SGPT) 13 U/L (8-55); AST (SGOT) 57 U/L (5-34)
[2017-11-06 11:31] LABS: Carbon Dioxide 8 mmol/L (22-29); Potassium 4.8 mmol/L (3.5-5.1)
[2017-11-06] MEDS: Hydrocortisone Sod Succ/PF 100 mg/2 ml Vial IVP SCH ×3 (11:32→23:54)
[2017-11-06] MEDS: CEFAZOLIN 1 GM, Syringe 2.5 ML in Sterile Water 7.5 ML SLOW IVP SCH (11:41)
--- NOTE | 2017-11-06 12:01 | PRG ---
DATE OF SERVICE: 11/06/2017 RENAL MEDICINE SUBJECTIVE: Ms. Joseph is a 47-year-old female with ESRD and currently on maintenance hem odialysis. Due to the presence of the low blood pressure--systolic in the 80s yesterday, minimal flu id removal was done with dialysis. Volume repletion was actually given with dialysis. However, susy y this morning the patient was noted to be hypotensive where the BP was in the 50s systolic. IV bolu s of normal saline 150 mL was given without improvement and for that reason, the patient was transfer red to the unit. In addition, another albumin infusion was given. The patient is to be started on L evophed. OBJECTIVE: GENERAL: Lethargic, somewhat somnolent. VITAL SIGNS: Blood pressure is 58/29 with a heart rate of 68, respiratory rate 21, pulse ox 96%. GENERAL: Noted to be somnolent and lethargic, no acute cardiorespiratory distress. SKIN: Adequate turgor. HEENT: She has pinkish conjunctivae, anicteric sclerae. NECK: No neck mass, no carotid bruits, no JVD. CHEST: No deformities. LUNGS: Decreased breath sounds. HEART: Normal sinus rhythm. No murmur, no gallops, no rubs. ABDOMEN: Globular, soft, nontender. EXTREMITIES: No edema. LABORATORY: Of 11/06/2017 pending. On 11/05/2017: White count 9, hemoglobin 10.8. ASSESSMENT AND PLAN: 1. Hypotension--patient may be in septic shock. Currently on IV antibiotics. She is also noted to be bacteremic. The patient will be started on pressor support. P.r.n. IV normal saline infusion. 2. End-stage renal disease, no indication for any dialytic intervention. We will resume back to joanie lysis on Tuesday if she is more hemodynamically stable. Overall, prognosis with this patient remains poor. Currently patient is also on empiric IV cortisone . She is also on IV Ancef.
--- NOTE | 2017-11-06 14:33 | PRG ---
DATE OF SERVICE: 11/06/2017 SUBJECTIVE: This morning she is encephalopathic and hypotensive with blood pressure of 60. She was transferred from the MICU to the ICU. She was given 500 of Plasmanate, and blood pressure is still 60 systolically and in the process of st arting Levophed. She was additionally given 250 of saline. She was dialyzed yesterday. OBJECTIVE: GENERAL: On examination, she is lethargic, but arousable. VITAL SIGNS: Sats are 90%, pulse is 68, blood pressure is 68 systolic. CHEST: Decreased breath sounds, no wheezing. CARDIAC: Normal S1, S2, no gallops. ABDOMEN: Soft. IMPRESSION: 1. Stat sepsis. 2. Diabetes. 3. Renal failure. 4. Hypertension. PLAN: Started Levophed, stress doses of hydrocortisone. Minimize sedation. Antibiotics per Infecti ous Disease. [id number] critical care time.
[2017-11-06] MEDS ORDERED: CEFAZOLIN 1 GM, Syringe 2.5 ML in Sterile Water 7.5 ML SLOW IVP SCH (14:45)
--- NOTE | 2017-11-06 14:46 | PRG ---
DATE OF SERVICE: 11/06/2017 SUBJECTIVE: Ms. Joseph was [facility] because of change in mental status. She was hy potensive too and required pressors. Still a little bit delirious at this time. She wakes up and es tablishes eye contact. When I asked her questions, she will repeatedly ask me to repeat the question and it takes me a while to obtain an answer. She pretty much says yes to every review of systems qu estion that I asked her, including positivity for headaches, chest pain, abdominal pain, and so on. OBJECTIVE: VITAL SIGNS: Her temperature has been normal. T-max 99.6, BP 110/43, pulse 57, O2 sat 95%. CHEST: Symmetric air entry. HEART: S1, S2 with a soft aortic murmur. ABDOMEN: Soft, not tender. LABORATORY DATA: White cell count 7.1, hemoglobin 10.2, platelets 66,000 with 66% neutrophils, 8% ba nds. Chemistry is not remarkable. Microbiology: Repeat blood cultures negative from 11/05/2017. ASSESSMENT AND DISCUSSION: Type 2 diabetes, end-stage renal disease on hemodialysis through an AV gr aft, pacemaker placement, which is recent, and methicillin-sensitive susceptible Staphylococcus aureu s bacteremia. Again, the differential diagnosis includes colonization of pacemaker leads/endocarditi s versus colonization of dialysis graft access. Distant areas of dissemination are possible includin g lung, spine, other joints. She became a little bit hypotensive and delirious and will have to cont inue treating. The patient is currently receiving cefazolin daily, adjusted for renal function.
[2017-11-07] MEDS: Hydrocortisone Sod Succ/PF 100 mg/2 ml Vial IVP SCH ×3 (05:24→18:15)
[2017-11-07] MEDS: Acetaminophen/Codeine 30-300mg Tablet PO PRN (05:26)
[2017-11-07] MEDS ORDERED: CEFAZOLIN 2 GM in Sodium Chloride 0.9% 100 ML IVPB SCH (09:00)
[2017-11-07] MEDS ORDERED: CEFAZOLIN/Water 2 GM/20 ML SYRINGE SLOW IVP SCH ×2 (09:00)
--- NOTE | 2017-11-07 09:18 | PRG ---
DATE OF SERVICE: 11/07/2017 SUBJECTIVE: Ms. Joseph is resting comfortably in bed. No chest pain or pressure. OBJECTIVE: VITAL SIGNS: Her blood pressure 121/40 and pulse is 78 and it is regular. LUNGS: Clear. CARDIAC: Normal S1 and S2. ABDOMEN: Soft and nontender. EXTREMITIES: No edema. PERTINENT LABORATORY DATA: The hemoglobin 10.2 yesterday, WBC 7.1. CO2 yesterday was 8. ASSESSMENT: 1. Persistent infection, likely sepsis. 2. Previous pacemaker insertion. PLAN: Transesophageal echo today to evaluate the leads as well as the valves; may need pacemaker rem oval.
[2017-11-07] MEDS ORDERED: Diprivan 0 ML ONE (12:13)
--- NOTE | 2017-11-07 14:35 | PDOC.PN ---
- Subjective Encounter Start Date: 11/07/17 Encounter Start Time: 10:40 Pt seen for followup re: hypotension. Denies chest pain or shortness of breath. - Objective MAR Reviewed: Yes Vital Signs & Weight: Vital Signs (12 hours) Temp 11/07/17 12:00 98.3 F 11/07/17 08:00 97.8 F Weight Admit Weight 192 lb 8 oz Weight 189 lb 2.506 oz Most Recent Monitor Data Heart Rate from ECG 71 NIBP 104/58 NIBP BP-Mean 83 Respiration from ECG 11 SpO2 97 I&O: 11/06/17 11/07/17 11/08/17 06:59 06:59 06:59 Intake Total 300 806 Output Total 0 Balance 300 806 Result Diagrams: 11/06/17 10:39 11/06/17 10:39 Additional Labs: Accuchecks 11/07/17 11:16 POC Glucose 140 H EKG Reviewed by me: Yes (Tele: audra hardy) Phys Exam - Physical Examination Constitutional: NAD HEENT: moist MMs Neck: supple Respiratory: clear to auscultation bilateral Cardiovascular: RRR Gastrointestinal: soft s/p L BKA Neurological: moves all 4 limbs Psychiatric: normal affect Skin: no rash Dx/Plan (1) Hypotension Status: Acute (2) Bacteremia Code(s): R78.81 - BACTEREMIA Status: Acute (3) Sepsis Code(s): A41.9 - SEPSIS, UNSPECIFIED ORGANISM Status: Acute (4) Elevated troponin I level Code(s): R74.8 - ABNORMAL LEVELS OF OTHER SERUM ENZYMES Status: Acute (5) ESRD (end stage renal disease) on dialysis Code(s): N18.6 - END STAGE RENAL DISEASE; Z99.2 - DEPENDENCE ON RENAL DIALYSIS Status: Chronic - Plan continue antibiotics * . Review of Systems - Review of Systems Respiratory: negative: Cough, Dry, Shortness of Breath, Hemoptysis, SOB with Excertion, Pleuritic Pain, Sputum, Wheezing Cardiovascular: negative: chest pain, palpitations, orthopnea, paroxysmal nocturnal dyspnea, edema, light headedness - Medications/Allergies Allergies/Adverse Reactions: Allergies Allergy/AdvReac Type Severity Reaction Status Date / Time No Known Drug Allergies Allergy Verified 11/03/17 11:31 Medications: Current Medications Acetaminophen (Tylenol) 650 mg PO Q4H PRN PRN Reason: Headache/Fever or Pain Last Admin: 11/04/17 05:52 Dose: 650 mg Acetaminophen/Codeine Phosphate (Tylenol #3) 1 tab PO TID PRN PRN Reason: Pain Last Admin: 11/05/17 21:24 Dose: 1 tab Aspirin (Aspirin Chewable) 81 mg PO DAILY [facility] Last Admin: 11/07/17 09:47 Dose: 81 mg Bisacodyl (Dulcolax) 10 mg PO DAILYPRN PRN PRN Reason: Constipation Cefazolin Sodium (Ancef) 2 gm SLOW IVP DAILY [facility] Last Admin: 11/07/17 09:48 Dose: 2 gm Dextrose/Water (Dextrose 50%) 25 gm SLOW IVP PRN PRN PRN Reason: Hypoglycemia Glucagon (Glucagon) 1 mg IM PRN PRN PRN Reason: Hypoglycemia Hydrocortisone Sodium Succinate (Solu-Cortef) 50 mg IVP Q6HR [facility] Stop: 11/13/17 12:01 Last Admin: 11/07/17 13:14 Dose: 50 mg Dextrose/Water (D5w) 1,000 mls @ 0 mls/hr IV .Q0M PRN; As Directed PRN Reason: Hypoglycemia Norepinephrine Bitartrate 8 mg (/ Sodium Chloride) 258 mls @ 0 mls/hr IVPB INF TEENA; Titrate PRN Reason: Protocol Last Admin: 11/06/17 20:40 Dose: 258 mls Cefazolin Sodium 1 gm/ Syringe (2.5 ml/ Sterile Water) 10 mls @ 120 mls/hr SLOW IVP .DIALYSIS DAYS [facility] Insulin Human Lispro (Humalog) 0 units SC .MILD SLIDING SCALE PRN PRN Reason: Mild Correctional Scale Nitroglycerin (Nitrostat) 0.4 mg SL Q5MIN PRN PRN Reason: Chest Pain Ondansetron HCl (Zofran) 4 mg SLOW IVP Q6H PRN PRN Reason: Nausea/Vomiting Last Admin: 11/03/17 14:24 Dose: 4 mg Sodium Chloride (Flush - Normal Saline) 10 ml IVF Q12HR [facility] Last Admin: 11/07/17 09:48 Dose: 10 ml Sodium Chloride (Flush - Normal Saline) 10 ml IVF PRN PRN PRN Reason: Saline Flush
--- NOTE | 2017-11-07 15:20 | ECHO ---
TRANSESOPHAGEAL ECHOCARDIOGRAM: DATE OF PROCEDURE: 11/07/17 INDICATION: This is a 47-year-old woman with staphylococcal sepsis and history of pacemaker placement. DESCRIPTION OF PROCEDURE: The patient was taken to the PACU. The patient was sedated by anesthesiology. A transesophageal probe was placed in the distal esophagus and stomach. Echocardiographic images were obtained. The transesophageal probe was removed. FINDINGS: 1. Moderate right atrial enlargement. 2. The right ventricle is moderately enlarged. 3. The left ventricle is normal in size. 4. Normal mitral and aortic valves. 5. Moderate tricuspid regurgitation. 6. Pacemaker wires noted in the right atrium and ventricle with a mass noted attached to the wire, s uggestive of vegetation. 7. Atherosclerotic debris in the descending aorta. IMPRESSION: Mass attached to the pacemaker wire, very suggestive of vegetation.
--- NOTE | 2017-11-07 15:58 | PRG ---
DATE OF SERVICE: 11/07/2017 SERVICE: Pulmonary Medicine. INTERVAL HISTORY: The patient is doing fine from a cardiovascular and respiratory standpoint. She i s breathing comfortably. She does not have any overnight events. She is still on a little bit of Le vophed, but this has been weaned down. PHYSICAL EXAMINATION: VITAL SIGNS: Afebrile, pulse 71, blood pressure 104/58, respirations 11, saturation 97% on room air. GENERAL: The patient is awake, alert, no apparent distress. LUNGS: Decent air entry. There is no prolonged expiratory phase or wheezing. No rhonchi or crackle s are appreciated. HEART: Normal rate, regular. ABDOMEN: Soft, nontender, nondistended. Bowel sounds are positive. MUSCULOSKELETAL: No cyanosis or clubbing. There is no pitting throughout. GENITOURINARY: No Winkler. NEUROLOGIC: Grossly nonfocal. LABORATORY DATA: Blood sugar ranges from 86-144. Cortisol level was previously unremarkable. Blood culture in 2 out of 2 were growing Staph aureus that is sensitive to oxacillin. Repeat blood cultur es x2 were unremarkable. IMAGING: Transesophageal echocardiogram demonstrates moderate right atrial enlargement, right ventri michael is moderately enlarged. Left ventricle is normal. Normal mitral and aortic valves. Moderate TR . Pacemaker wires in the right atrium and ventricle with a mass noted attached to the wire suggestiv e of vegetation. Arthrosclerotic debris in the descending aorta. ASSESSMENT: 1. Septic shock. 2. Bacteremia secondary to methicillin-sensitive Staphylococcus aureus. 3. 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 4. Acute hypoxic respiratory failure. 5. Non-ST elevation myocardial infarction. 6. End-stage renal disease. 7. Type 2 diabetes mellitus. PLAN: We will continue antibiotics per ID direction. Once Levophed is off, she can be transitioned out of the ICU to the regular floor. Pulmonary and Critical Care will continue to follow while she r emains in this location.
--- NOTE | 2017-11-07 16:16 | PRG ---
DATE OF SERVICE: 11/07/2017 SUBJECTIVE: Ms. Joseph is a 47-year-old female with ESRD and currently followed up by the Renal Service for her maintenance hemodialysis. She has been severely hypotensive in the last sever al days secondary to sepsis. I have done limited fluid removal with her dialysis. Yesterday, she was noted to be acidotic/acidemic. This is secondary to her persistent hypotension. She is now currently on pressor support, which has dramatically improved her blood pressure. In era tion, she is now mentating much better. She also underwent a transesophageal echocardiogram, which s howed a mass/vegetation attached to the pacemaker wire. Otherwise, no new complaints today. PHYSICAL EXAMINATION: VITAL SIGNS: Blood pressure is 104/58 with a heart rate of 71, respiratory rate 11, pulse ox 97%. GENERAL: Awake, alert, comfortable, not in distress. SKIN: Adequate turgor. HEENT: She has pinkish conjunctivae, anicteric sclerae. NECK: No neck mass, no carotid bruits, no JVD. CHEST: No deformities. LUNGS: Decreased breath sounds. HEART: Normal sinus rhythm. No murmur, no gallops, no rubs. ABDOMEN: Globular, soft, nontender. No masses. EXTREMITIES: No edema or deformities. MEDICATIONS: Of 11/07/2017 was reviewed. LABORATORY DATA: Of 11/06/2017, white count 7.1, hemoglobin 10.2. Sodium 137, potassium 4.8, chlori de 102, carbon dioxide 8, BUN 59, creatinine 3.65, glucose 140, AST 57, ALT 13, cortisol level is 17. 6. ASSESSMENT AND PLAN: 1. Metabolic acidosis - this could be related from underlying lactic acidosis from her sepsis. Supp ortive management. She will be rescheduled for dialysis in a.m. 2. End-stage renal disease, stable. Blood pressure is much improved with pressor support. Continue current 3 times a week hemodialysis. She is scheduled for dialysis in the a.m. 3. Sepsis - bacteremia. The patient has vegetation on her pacemaker wire. The pacemaker wire may e ventually need to be removed. Continue IV antibiotics. ID is following. Overall, prognosis remains guarded. Consider giving 1-200 of sodium bicarbonate. Recheck basic met and CBC in a.m.
[2017-11-07 16:58] LABS: PTT 61.2 SEC (22.9-36.1)
[2017-11-07 16:59] LABS: Prothrombin Time 90.9 SEC (12.0-14.7)
--- NOTE | 2017-11-07 17:19 | DIS ---
DATE OF ADMISSION: 11/02/2017. DATE OF DISCHARGE: 11/07/2017. DISCHARGE DIAGNOSES: 1. Sepsis. 2. Methicillin-sensitive Staphylococcus aureus bacteremia. 3. Vegetation, on pacemaker. 4. Hypotension. CONDITION OF PATIENT ON THE DAY OF DISCHARGE: Stable. I assessed Ms. Joseph on the day of dischar . She was initially on low dose Levophed, which was subsequently weaned off. She denied any compl aints. S1 and S2 are heard, irregular. Lungs are clear to auscultation bilaterally. Please refer t o my daily hospitalist's progress note for further details. DISCHARGE MEDICATIONS: The patient is being discharged to [facility] in [place] on cefazolin, acetaminophen, Zofran p.r.n., Dulcolax p.r.n., hydrocortisone 50 mg IV push q.6 hours. HOSPITAL COURSE: Ms. Joseph is a pleasant 47-year-old lady who was admitted to [facility] on 11/02/2017 for sepsis and elevated troponin. She was seen by Cardiology, Infectiou s Diseases, Nephrology, Electrophysiology and Pulmonary Critical Care Medicine Services during this h ospitalization. Blood cultures grew MSSA. Her antibiotic was changed to cefazolin on 11/03/2017. She had episodes o f hypotension, for which she needed Levophed. At the time of discharge, she is off of Levophed. The main differential for bacteremia was colonization of pacemaker leads versus colonization of dialy sis graft access. She had a CLAUS on 11/07/2017, which showed a mass attached to pacemaker wire, sugge stive of vegetation. Electrophysiology Service recommended transfer to [facility] in [facility] for removal of infected pacemaker wire. She is currently awaiting transfer. Many thanks for allowing me to participate in your patient's care. Please feel free to contact me wi th any questions or concerns. DISCHARGE DESTINATION: [facility] in [place]. TOTAL AMOUNT OF TIME SPENT COORDINATING THIS DISCHARGE: 33 minutes.
[2017-11-07 17:24] LABS: INR-International Normal Ratio 10.6
[2017-11-07] MEDS ORDERED: Phytonadione 10 MG/ML AMP SC SCH (18:30)
[2017-11-07] MEDS: HumaLOG 300 UNITS/3 ML VIAL SC PRN ×2 (18:42→22:01)
[2017-11-07 19:42] VITALS: TEMP 97.7
--- NOTE | 2017-11-07 23:27 | CON ---
DATE OF SERVICE: 11/07/2017 ELECTROPHYSIOLOGY CONSULTATION REPORT REFERRING PHYSICIAN: Joseline Ahumada M.D. I am seeing Ms. Joseph at our [facility] telemetry floor as an electrophysiology technology methodology consultant. Her problems are: 1. Methicillin-sensitive Staphylococcus aureus septicemia. A. CLAUS 11/07/2017, suggestive of pacemaker leads vegetation. 2. History of bradycardia and syncope, possible sinus node disease prompting dual chamber pacemaker implantation in 09/26/[address] Lambert, the [employer] Sensia device. A. No evidence of malfunction and [id number] grade atrial pacing noted on interrogation. 3. History of end-stage renal disease on hemodialysis. A. Left upper extremity AV shunt present. 4. Coronary artery risk factors. A. Type 2 diabetes. B. Dyslipidemia. C. Hypertension. 5. History of seizure disorder. 6. Remote history of cardiac arrest due to hyperkalemia. 7. Chronic left eye blindness. 8. History of peripheral vascular disease. A. Status post left BKA. 9. History of GERD and gastroparesis. 10. History of chronic pain syndrome. 11. Overtherapeutic INR and thrombocytopenia; ALLERGIES: None. MEDICATIONS AT HOME: Included vitamin D3, phenytoin, Zofran, warfarin, benzonatate, clonidine, amlodipine, metoprolol, quetiapine. SUBJECTIVE: Ms. Joseph is here admitted on 11/02/2017 with symptoms of on and off left-sided chest pain which is nonradiating, associated with nausea, shortness of breath, and cough. She had body aches, feeling sick. Nausea and vomiting were noted. On the evaluation, she was found to be negative for flu, but MSSA bacteremia was growing out from the cultures on 11/02/2017. She received Ancef, getting with hemodialysis now. Her white cell count started improving. She is still a poor historian, but currently not complaining of any of the above symptoms, being comfortable in the bed in the ICU. No chest pains , no PND, orthopnea, no lower extremity edema. No bleeding issues, no new stroke-like symptoms noted. REVIEW OF SYSTEMS: Rest of the 12-point system is otherwise unremarkable. PAST MEDICAL HISTORY: As above. SOCIAL HISTORY: The patient denies smoking, ETOH, or drug abuse. FAMILY HISTORY: Significant for end-stage renal disease. PAST SURGICAL HISTORY: Significant for below-knee amputation, left eye surgery , right second finger amputation, multiple toes on her right side also amputated , bilateral tubal ligation, cholecystectomy, shunt placement, and surgeries for clotted dialysis access in the past. OBJECTIVE DATA: VITAL SIGNS: The blood pressure is currently 111/62, heart rate 71, respirations 12, the patient is afebrile. GENERAL: This is an alert and oriented woman in no apparent distress who appears older than the stated age. NECK: Supple. Jugular veins are slightly distended. CHEST: Coarse with few crackles and wheezes. CARDIAC: Heart sounds are regular to rate and rhythm. No murmur or gallop. Right precordial ICD insertion site is well healed. No erythema or signs of infection noted. ABDOMEN: Benign. Bowel sounds positive. EXTREMITIES: Lower extremities without edema, clubbing, or cyanosis. Pulses are adequate. NEUROLOGIC: The patient is nonfocal. MUSCULOSKELETAL: Without joint swelling or deformities. SKIN: Without rash. DATABASE: The EKG is reviewed revealing sinus rhythm with normal AV conduction , narrow QRS. LABORATORY DATA: Reveals white cell count 7.1, hemoglobin 10.2, platelet count is 66. Initial white cell count is 9.2 only on presentation. INR on 11/07/2017 , 10.6. Sodium 137 on 11/06/2017, potassium 4.8, BUN is 39, creatinine is 5.65 , glucose 140, AST and ALT are 57 and 13, alkaline phosphatase 171. The microbiology review revealing blood cultures from 11/02/2017 with 2/2 methicillin-sensitive Staph aureus positive noted. Influenza is negative. Blood cultures from 08/05/2018 are no growth for 2 days. The pacemaker interrogation reveals adequately functioning dual chamber pacemaker with only 38% atrial pacing and only 28.9% ventricular pacing noted. Some backup pacing rate was lower to the 50s. ASSESSMENT AND PLAN: Ms. Joseph is a pleasant 47-year-old woman who has a history of end-stage renal disease, bradycardia, and subsequent dual chamber pacemaker implantation in 09/2014, also has a history of mild coronary artery disease, normal LVEF, but advanced vascular disease, status post [id number] amputation left side and toe amputations. She is admitted with methicillin-sensitive Staphylococcus aureus bacteremia associated with sepsis requiring pressors. Now, she is off pressors and I was consulted for further management of the possible vegetations noted on the pacemaker leads. My impression is: 1. Methicillin-sensitive Staphylococcus aureus bacteremia possibly related to pacemaker lead vegetation demonstrated by CLAUS on 11/07/2017. 2. History of bradycardia with adequate functioning dual chamber pacemaker. The patient does not appear to profoundly pacemaker dependent. Reprogramming the pacemaker to 50 beats per minute to assess that, currently, 36% atrially paced. 3. Sepsis, now resolving, the second set of blood cultures negative, continued on cephalosporins. 4. Chronic thrombocytopenia, possibly due to end-stage renal disease. 5. History of normal left ventricular ejection fraction, mild coronary disease. 6. Pulmonary hypertension with pulmonary artery systolic pressure 48 mmHg on echo with right-sided chamber dilation. 7. Advanced diabetes with complications. 8. Moarkedly overtherapeutic INR. Being correceted with vitamin K.. PLAN: I agree with current care. She seems to be improving some and less likely would benefit from lead extraction. Hence, the comorbidities this likley to be a complicated procedure. She would benefit from being transferred to tertiary facility to [facility]. I will start making arrangements. I did discuss this with the patient's family as with Dr. Cordoba, the patient's hospitalist, and contacted the hospitalist in [facility]. Total time spent about an hour and 15 minutes. VICTORIANO
== END 2017-11-07 22:55 | disposition short-term general hospital (02) | DRG 314 ==
LOC: ERS 13:03 → IMCU/EMU 18:12 → CCU 11-06 08:57
PROVIDERS: ADMIT Internal Medicine; ATTEND Internal Medicine
PROC: 5A1D70Z Performance of Urinary Filtration, Intermittent, Less than 6 Hours Per Day (ICD-10-PCS; principal; 2017-11-06)
PROC: B24BZZ4 Ultrasonography of Heart with Aorta, Transesophageal (ICD-10-PCS; 2017-11-07)
DX: T82.7XXA Infection and inflammatory reaction due to other cardiac and vascular devices, implants and grafts, initial encounter (principal); A41.01 Sepsis due to Methicillin susceptible Staphylococcus aureus; I12.0 Hypertensive chronic kidney disease with stage 5 chronic kidney disease or end stage renal disease; J96.01 Acute respiratory failure with hypoxia; R65.21 Severe sepsis with septic shock; D69.6 Thrombocytopenia, unspecified; E11.22 Type 2 diabetes mellitus with diabetic chronic kidney disease; E11.43 Type 2 diabetes mellitus with diabetic autonomic (poly)neuropathy; K31.84 Gastroparesis; N18.6 End stage renal disease; E87.2 Acidosis; N30.00 Acute cystitis without hematuria; I24.8 Other forms of acute ischemic heart disease; E11.51 Type 2 diabetes mellitus with diabetic peripheral angiopathy without gangrene; Z99.2 Dependence on renal dialysis; G40.909 Epilepsy, unspecified, not intractable, without status epilepticus; Z95.0 Presence of cardiac pacemaker; K21.9 Gastro-esophageal reflux disease without esophagitis; Z89.512 Acquired absence of left leg below knee; H54.8 Legal blindness, as defined in USA; Z79.01 Long term (current) use of anticoagulants; E87.6 Hypokalemia; E78.5 Hyperlipidemia, unspecified; I25.10 Atherosclerotic heart disease of native coronary artery without angina pectoris; I27.20 Pulmonary hypertension, unspecified; I07.1 Rheumatic tricuspid insufficiency
CPT/HCPCS: 36415; 36416; 71045; 80048; 80053; 80202; 82533; 82553; 83605; 83690; 83880; 84484; 85007; 85025; 85027; 85610; 85730; 87040; 87077; 87149; 87186; 90935; 93005; 93306; 93312; 93798; 96365; 96367; A4216; G0257; J0690; J0696; J1720; J2543; J2704; J3370; J3430; J7050; P9045

== ENCOUNTER → 2017-12-02 | Day surgery (SDC) | payer MEDICARE ==
[~2017-12-02] MED LIST: HYDROcodone/Acetaminophen 5/325 mg Tablet PO SCH; Sodium Chloride 0.9% 30 ML ONE
[2017-12-02 18:11] VITALS: BP 108/62; TEMP 99
== END ==
LOC: ONC/OP 10:13
PROVIDERS: ATTEND Internal Medicine Nephrology
PROC: 30233N1 Transfusion of Nonautologous Red Blood Cells into Peripheral Vein, Percutaneous Approach (ICD-10-PCS; principal; 2017-12-02)
DX: E11.22 Type 2 diabetes mellitus with diabetic chronic kidney disease (principal); I12.0 Hypertensive chronic kidney disease with stage 5 chronic kidney disease or end stage renal disease; N18.6 End stage renal disease; D63.1 Anemia in chronic kidney disease; E78.5 Hyperlipidemia, unspecified; E11.43 Type 2 diabetes mellitus with diabetic autonomic (poly)neuropathy; K31.84 Gastroparesis; G40.909 Epilepsy, unspecified, not intractable, without status epilepticus; R00.1 Bradycardia, unspecified; E87.5 Hyperkalemia; H54.62 Unqualified visual loss, left eye, normal vision right eye; E11.51 Type 2 diabetes mellitus with diabetic peripheral angiopathy without gangrene; K21.9 Gastro-esophageal reflux disease without esophagitis; G89.29 Other chronic pain; Z79.01 Long term (current) use of anticoagulants; Z79.2 Long term (current) use of antibiotics; Z79.899 Other long term (current) drug therapy; Z99.2 Dependence on renal dialysis; Z95.0 Presence of cardiac pacemaker; Z89.512 Acquired absence of left leg below knee; Z89.021 Acquired absence of right finger(s); Z89.421 Acquired absence of other right toe(s); Z98.890 Other specified postprocedural states
CPT/HCPCS: 36415; 36430; 86850; 86900; 86901; A4216; P9016

== ENCOUNTER 2017-12-12 08:30 | Inpatient (IN) | payer MEDICARE ==
[2017-12-12 09:30] LABS: ALT (SGPT) Less than 7 U/L (8-55); AST (SGOT) 143 U/L (5-34); Acetaminophen Less than 6.0 mcg/mL (10.0-30.0); Albumin 2.4 g/dL (3.5-5.0); Alcohol Less than 10 mg/dL (Less than 10); Alkaline Phosphatase 601 U/L (40-150); Anion Gap 19 mmol/L (10-20); BUN (Urea Nitrogen) 22 mg/dL (7.0-18.7); Bilirubin, Total 0.6 mg/dL (0.2-1.2); Calc. Creatinine Clearance 0 mL/min (70-130); Calcium 8.7 mg/dL (7.8-10.44); Carbon Dioxide 20 mmol/L (22-29); Chloride 90 mmol/L (98-107); Estimated GFR-MDRD 16; Globulin 5.3 g/dL (2.4-3.5); Glucose 61 mg/dL (70-105); Potassium 3.6 mmol/L (3.5-5.1); Protein, Total 7.7 g/dL (6.0-8.3); Salicylate Less than 8.0 mg/dL (15.0-30.0); Sodium 125 mmol/L (136-145)
[2017-12-12 09:34] LABS: CKMB 1.2 ng/mL (0-6.6); Troponin I 0.093 ng/mL (< 0.028)
--- NOTE | 2017-12-12 09:47 | CT ---
CT OF HEAD NONCONTRAST: Date: 12/12/17 COMPARISON: 09/22/16. INDICATION: Altered mental status. FINDINGS: There is no intracranial hemorrhage, mass effect, midline shift, or ventriculomegaly. Minimal mucosal thickening is seen at the paranasal sinuses. IMPRESSION: No acute intracranial abnormalities. POS: [facility]
[2017-12-12 09:49] LABS: #Eosinphils 0.1 thou/uL (0.0-0.7); #Lymphocytes 0.8 thou/uL (1.20-3.40); #Monocytes 0.4 thou/uL (0.11-0.59); #Neutrophils 7.4 thou/uL (1.40-6.50); %Basophils 0.1 % (0.0-1.0); %Eosinophils 0.7 % (0.0-10.0); %Lymphocytes 9.1 % (21.0-51.0); %Monocytes 4.2 % (0.0-10.0); %Neutrophils 85.9 % (42.0-75.0); Anisocytosis SLIGHT = 6-15 cells (100X) (0-5/hpf); Hemoglobin 8.9 g/dL (12.0-16.0); Hypochromia SLIGHT = 6-15 cells (100X) (0-5/hpf); MDiff Complete? YES; Macrocytosis SLIGHT = 6-15 cells (100X) (0-5/hpf); Mean Corpuscular HGB CONC 29.6 g/dL (32.0-36.0); Mean Corpuscular Hemoglobin 31.3 pg (27.0-31.0); Platelet Count 244 thou/uL (130-400); Polychromasia SLIGHT = 2-3 cells (100X) (0-2/hpf); Red Blood Cell (RBC) Count 2.85 mill/uL (4.20-5.40); White Blood Cell (WBC) Count 8.6 thou/uL (4.8-10.8)
--- NOTE | 2017-12-12 10:13 | RAD ---
CHEST 1 VIEW: Date: 12/12/17 HISTORY: Altered mental status. COMPARISON: 11/02/17. FINDINGS: Diminished lung volumes. Heart is enlarged. Pulmonary vessels are normal. Costophrenic angles are michael ar. Elevation of right hemidiaphragm likely due to atelectasis in the right lung base. No pneumothora x. IMPRESSION: 1. Cardiomegaly. 2. Diminished lung volumes. 3. Atelectasis right lung base. 4. Continued surveillance. POS: [facility]
[2017-12-12 12:43] LABS: Troponin I 0.418 ng/mL (< 0.028)
--- NOTE | 2017-12-12 13:33 | HP ---
PRIMARY CARE PHYSICIAN: Dr. Vilchis at [facility]. REASON FOR ADMISSION: Acute metabolic encephalopathy, hypotension, hypoglycemia. HISTORY OF PRESENT ILLNESS: A 47-year-old female who was recently admitted in our hospital on 11/02/2017. At that time, she had Staphylococcus bacteremia. Patient was diagnosed with vegetation over pacemaker wire. Subsequently, patient was discharged on 11/07/2017 to [facility]. Patient required transfer initially to [facility] where she had pacemaker exchanged. Dr. Singh was consulted during that admission and he recommended lead extraction, which was done at [facility]. At this time, the patient was found unresponsive at skilled nursing, duration unknown. Patient was hypotensive and her blood pressure was 60/40 at the scene. There was no IV access achievable and that is why right humeral head IO was placed and patient was started on D50. When she came to the emergency room , patient was only responsive to deep painful stimuli. She was lethargic and somnolent, her blood pressure improved. In the emergency room, patient was getting D5 NS and IV fluid. REVIEW OF SYSTEMS: Unfortunately because of her altered mental status and encephalopathy, patient is not able to provide any review of systems and any detailed history. CURRENT HOME MEDICATIONS: Based on patient's recent discharge, patient was on following medications: Amlodipine 10 mg p.o. daily, PhosLo 667 three capsules p.o. t.i.d., Celexa 20 mg p.o. daily, clonidine 0.1 mg p.o. b.i.d., metoprolol tartrate 50 mg p.o. b.i.d., Dilantin 300 mg p.o. at bedtime, Seroquel 25 mg p.o. at bedtime, Zocor 40 mg p.o. at bedtime, warfarin 2.5 mg p.o. daily. PAST MEDICAL HISTORY: End-stage renal disease on hemodialysis Tuesday, , and Tuesday followed by Dr. Laboy; diabetes type 2; hypertension; dyslipidemia ; diabetes; gastroparesis; seizure disorder; history of symptomatic bradycardia , required pacemaker placement; pacemaker wire infection with vegetation during previous admission; history of cardiac arrest secondary to hyperkalemia; chronic left eye blindness; peripheral vascular disease required left below knee amputation; gastroesophageal reflux disease; and chronic pain disorder. PAST SURGICAL HISTORY: Left below knee amputation, left eye surgery, right second and third toe amputation, right second finger amputation, bilateral tubal ligation, open cholecystectomy, dialysis catheter placement and multiple other surgeries for clotted dialysis access. PAST PSYCHIATRIC HISTORY: Anxiety, depression, and bipolar disorder. ALLERGIES: No known drug allergies. SOCIAL HISTORY: Patient lives at [facility]. No history of tobacco , alcohol or illicit drug abuse. FAMILY HISTORY: Positive for ESRD among several family members. EMERGENCY ROOM COURSE: Patient is given D5 and IV fluid 500 mL. PHYSICAL EXAMINATION: VITAL SIGNS: Lowest blood pressure 60/40, blood sugar very low. Currently, blood pressure 126/76, pulse 89, blood pressure is 126/76, pulse 89, respiratory rate 20, temperature 98.5 rectally, saturation 89% on room air with oxygen 100%. Weight 100 kilograms. GENERAL: The patient is currently responsive to only painful stimuli and obese. HEAD: Normocephalic, atraumatic. EYES: Pupils small, reactive to light. Left pupil with cataract. ENT: Oropharynx within normal limits. Moist mucous membranes. No oral lesions. No pharyngeal erythema, no exudate. NECK: Supple, no JVD, no thyromegaly, no carotid bruit. LUNGS: Clear to auscultation without any rhonchi or rales. CARDIAC: S1, S2 appears regular. No gross murmur noted. ABDOMEN: Obesity present. Bowel sounds present. Nontender and nondistended. No organomegaly, no mass, no suprapubic tenderness. BACK: Examination unremarkable, no CVA tenderness. No decubitus ulcer. EXTREMITIES: Upper extremity passive movements of all joints are normal. Dialysis shunt in left arm. Lower extremity, left BKA. Second and third toe amputation on the right side. NEUROLOGIC: A detailed neurological examination is not possible because of patient's altered mental status. She is only responsive to painful stimuli. SKIN: No skin rash. She does have chronic skin changes in lower extremity on the right side. IMAGING DATA AND SIGNIFICANT LABORATORY DATA: 1. EKG showing infrequent premature ventricular complexes, nonspecific ST-T changes. 2. CT brain based on my review, no acute intracranial process. 3. Chest x-ray showing cardiomegaly, pulmonary vascular congestion. 4. CBC: WBC 8.6, hemoglobin 8.9, MCV 106.0, platelet 244. 5. BMP: Sodium 125, potassium 3.6, chloride 90, carbon dioxide 20, anion gap 19, BUN 22, creatinine 3.10, glucose 61, calcium 8.7. 6. LFT: AST 143, ALT less than 7, alkaline phosphatase 601, albumin 2.4, CK- MB 1.2, troponin I 0.093 and then 0.418. Serum drug screen negative. ASSESSMENT AND PLAN/IMPRESSION: 1. Acute metabolic encephalopathy related with hypoglycemia, but other etiology cannot be entirely excluded. CT brain is negative for any acute process. We will follow up on culture result and rule out infection. 2. Hypoglycemia. The patient will be given D5 normal saline at 50 mL per hour. We will watch for any hypoglycemia and give her D50 as needed. 3. Hypotension. We will hold all antihypertensive medication until blood pressure improves. 4. Macrocytic anemia. When patient is able to take p.o., at that time we will start Nephro-Juany tablet daily. 5. Elevated troponin, likely due to demand ischemia. 6. Secondary hyperparathyroidism of renal origin. We will start PhosLo as per home dosage when patient is able to take p.o. 7. Anxiety and depression. We will continue Celexa 20 mg p.o. daily when patient able to take p.o. 8. Seizure disorder. We will continue Dilantin 100 mg IV q.8 hourly. 9. Dyslipidemia. We will continue Zocor 20 mg p.o. at bedtime when patient able to take p.o. 10. Hyponatremia, hypochloremia, likely related with end-stage renal disease. Patient is given slight IV fluid in the emergency room. We will repeat CMP tomorrow. 11. Abnormal liver function tests. We will repeat CMP tomorrow. Her hepatitis profile is negative. 12. Diabetes type 2. We will monitor Accu-Chek every 4 hourly and as needed and check more frequently if needed as well. We will hold on all kind of insulin therapy because of hypoglycemia. 13. Diabetic gastroparesis. We will continue with Reglan 5 mg IV q.6 hourly p.r.n. 14. Gastroesophageal reflux disease. We will continue Protonix 40 mg IV daily. CODE STATUS: Patient is FULL CODE. Patient's daughter is surrogate decision maker. Disposition plan based on clinical course. We are expecting patient's stay in hospital more than 2 midnights. Plan of care discussed with the patient and the ER physician. VICTORIANO
[2017-12-12] MEDS ORDERED: Aspirin 300 MG Suppository ONE (13:34)
[2017-12-12] MEDS ORDERED: Dextrose 5 % And 0.9 % NaCl 1,000 ML IV SCH (14:30)
[2017-12-12] MEDS ORDERED: Chloraseptic Spray 180 ml Bottle PO PRN (14:50)
[2017-12-12] MEDS ORDERED: Dextrose 50% Abboject 50 ML SYRINGE SLOW IVP PRN (14:50)
[2017-12-12] MEDS ORDERED: hydrALAZINE 20 MG/ML VIAL SLOW IVP PRN (14:50)
[2017-12-12] MEDS ORDERED: HumaLOG 300 UNITS/3 ML VIAL SC PRN ×2 (14:50)
[2017-12-12] MEDS ORDERED: Eucerin (Mineral Oil/Petrolatum,White) 30 gm Jar TOP PRN (14:50)
[2017-12-12] MEDS ORDERED: Sodium Chloride 0.65% Nasal 44 ML BOT EA NARE PRN (14:50)
[2017-12-12] MEDS ORDERED: Bisacodyl 10 MG SUPP PR PRN (14:50)
[2017-12-12] MEDS ORDERED: Acetaminophen 650 MG Suppository PR PRN (14:50)
[2017-12-12] MEDS ORDERED: Nitroglycerin 0.4 MG TAB (25 Tab Bottle) SL PRN (14:50)
[2017-12-12] MEDS ORDERED: Ondansetron HCl/PF 4 MG/2 ML Vial IVP PRN (14:50)
[2017-12-12] MEDS ORDERED: Fleet Enema 133 ML BOT PR PRN (14:50)
[2017-12-12] MEDS ORDERED: Artificial Tear Sol 15 ML BOT EA EYE PRN (14:50)
[2017-12-12] MEDS ORDERED: Dextrose 5% in Water 1,000 ML IV PRN (14:50)
[2017-12-12] MEDS: Dextrose 5 % And 0.9 % NaCl 1,000 ML IV SCH (15:51)
[2017-12-12 15:53] LABS: Troponin I 1.186 ng/mL (< 0.028)
[2017-12-12 17:10] LABS: INR-International Normal Ratio 2.1; PTT 50.6 SEC (22.9-36.1); Prothrombin Time 24.2 SEC (12.0-14.7)
[2017-12-12] MEDS ORDERED: Epoetin (ESRD) 20,000 UNITS/ML SC SCH (18:00)
[2017-12-12] MEDS: Heparin 5,000 UNITS/ML VIAL SC SCH (21:29)
--- NOTE | 2017-12-12 23:57 | CON ---
DATE OF CONSULTATION: 12/12/2017 CONSULTING PHYSICIAN: Dr. Parham. REASON FOR CONSULTATION: IM stay. HISTORY OF PRESENT ILLNESS: History is obtained by talking to the patient and reviewing records, speaking with the nurses. The patient is a 47-year-old female who is a [facility]. She was brought to the hospital today with altered mental status, low blood pressure and low blood sugar. She has since improved, since getting IV fluids and glucose. She is now mentating. She knows where she is. She denies any cough. She denies any pain. PAST MEDICAL HISTORY: 1. End-stage renal disease requiring 3 times weekly hemodialysis followed by Dr. Laboy. 2. Diabetes mellitus type 2. 3. Hypertension. 4. Peripheral vascular disease. 5. Seizure disorder. 6. Symptomatic bradycardia requiring pacemaker placement and subsequent removal due to vegetations on previous leads. 7. Staphylococcal septicemia. 8. Cardiac arrest secondary to hyperkalemia. 9. Chronic left eye blindness. 10. Hearing loss. 11. Peripheral vascular disease requiring left [id number] amputation. 12. Gastroesophageal reflux. 13. Right second and third toe amputation. 14. Right second finger amputation of bilateral tubal ligation. 15. Cholecystectomy dialysis catheter placements in her left arm, dialysis shunt placement. PAST PSYCHIATRIC HISTORY: Remarkable for anxiety, depression, bipolar disorder. ALLERGIES: None. SOCIAL HISTORY: Lives in [facility]. Does not smoke. Does not use illicit drugs. FAMILY MEDICAL HISTORY: Remarkable for end-stage renal disease. REVIEW OF SYSTEMS: Twelve point review of systems difficult to obtain because of patient's altered mental status. PHYSICAL EXAMINATION: VITAL SIGNS: Temperature 98.3, pulse 65, respirations 18, blood pressure ranging between 80/60 119/49. GENERAL: She is awake, alert, and able to give answers without difficulty. HEENT: Pupils react. Sclerae are anicteric. Oropharynx clear. NECK: No JVD. She has a right EJ catheter in place. CHEST: She has a right shoulder IO catheter in place. LUNGS: Clear to auscultation. CARDIAC: S1, S2 regular, without murmur. ABDOMEN: Obese, soft, and nontender. EXTREMITIES: She has left below knee amputation. She has brawny edema of the right lower extremity. IMAGINGS: Brain CT report reviewed by me showed no acute intracranial abnormalities. Chest x-ray report and film reviewed individually by me, demonstrates cardiomegaly, fairly clear diaphragms. Difficult to ascertain if there is infiltrative changes or not. LABORATORY DATA: White blood cell count 8.6, hematocrit 30, platelet count 244. Sodium 125, potassium 3.6, chloride 90, CO2 of 20, BUN 22, creatinine 3.1 , glucose 61, AST 143, ALT less than 7. Troponin 0.093. Toxicology screen was negative. HOME MEDICATIONS: Hydralazine, clonidine, warfarin? PhosLo, amlodipine, Celexa , clonidine, metoprolol, Dilantin, Seroquel, Zocor. Of note, PT/INR was not reported with labs. ASSESSMENT: 1. Hypoglycemia, which may be secondary to hypoglycemics, although I am having trouble finding records as to what she was taking for blood sugar management at [facility]. 1. Hyponatremia, which is probably secondary to her renal failure versus current medications. 2. Rule out sepsis. 3. Multiple other medical problems as listed above. RECOMMENDATIONS: 1. Fluid resuscitation. 2. Neurology consultation. 3. Agree with empiric antibiotics. 4. Withhold any insulin at this time. ADDENDUM: I did find that she was on sliding scale insulin, but I still do not see any record dose long-acting insulin or oral hypoglycemics. 70 minutes time was spent on this consultation. Of those 70 min, greater than 50% of the time was spent on counseling and coordination of care. VICTORIANO
[2017-12-13] MEDS: Dextrose 5 % And 0.9 % NaCl 1,000 ML IV SCH ×2 (04:29→20:40)
[2017-12-13 05:03] LABS: #Eosinphils 0.2 thou/uL (0.0-0.7); #Lymphocytes 1.3 thou/uL (1.20-3.40); #Monocytes 0.8 thou/uL (0.11-0.59); #Neutrophils 7.3 thou/uL (1.40-6.50); %Basophils 0.4 % (0.0-1.0); %Eosinophils 2.5 % (0.0-10.0); %Lymphocytes 13.1 % (21.0-51.0); %Monocytes 7.9 % (0.0-10.0); %Neutrophils 76.1 % (42.0-75.0); Mean Corpuscular HGB CONC 31.4 g/dL (32.0-36.0); Mean Corpuscular Hemoglobin 32.5 pg (27.0-31.0); Mean Platelet Volume 8.9 fL (7.4-10.4); Platelet Count 202 thou/uL (130-400); RBC Distribution Width 16.3 % (11.5-14.5); Red Blood Cell (RBC) Count 2.77 mill/uL (4.20-5.40); White Blood Cell (WBC) Count 9.6 thou/uL (4.8-10.8)
[2017-12-13 05:12] LABS: ALT (SGPT) 11 U/L (8-55); AST (SGOT) 753 U/L (5-34); Albumin 2.2 g/dL (3.5-5.0); Alkaline Phosphatase 563 U/L (40-150); Anion Gap 11 mmol/L (10-20); BUN (Urea Nitrogen) 25 mg/dL (7.0-18.7); Bilirubin, Total 0.4 mg/dL (0.2-1.2); Calc. Creatinine Clearance 32 mL/min (70-130); Calcium 8.1 mg/dL (7.8-10.44); Carbon Dioxide 25 mmol/L (22-29); Chloride 95 mmol/L (98-107); Estimated GFR-MDRD 14; Globulin 5.1 g/dL (2.4-3.5); Glucose 132 mg/dL (70-105); Potassium 3.3 mmol/L (3.5-5.1); Protein, Total 7.3 g/dL (6.0-8.3); Sodium 128 mmol/L (136-145)
--- NOTE | 2017-12-13 08:36 | PRG ---
DATE OF SERVICE: 12/13/2017 The patient is doing well today, has no complaints. PHYSICAL EXAMINATION: VITAL SIGNS: Temperature is 98.2, pulse 60, respiration 16, O2 sat 100%, blood pressure 102/42. HEENT: Unremarkable. NECK: No JVD. CHEST: Clear. CARDIAC: S1 and S2 regular. ABDOMEN: Soft. EXTREMITIES: Left [id number] amputation. LABORATORY DATA: White blood cell count 9.6, hematocrit 28.7, platelet count 202. Sodium 128, potas sium 3.3, chloride 95, CO2 25, BUN 25, creatinine 3.5, glucose 132. ASSESSMENT: 1. Resolved hypoglycemia 2. Chronic hyponatremia. 3. End-stage renal disease. PLAN: The patient can be transferred to the floor from my standpoint.
[2017-12-13] MEDS: Heparin 5,000 UNITS/ML VIAL SC SCH (08:53)
[2017-12-13] MEDS ORDERED: Aspirin 300 MG Suppository PR SCH (09:00)
[2017-12-13] MEDS ORDERED: Diabetic Tussin 200 MG/10 ML UDCUP PO PRN (09:20)
[2017-12-13] MEDS ORDERED: Acetaminophen 325 MG TAB PO PRN (09:20)
[2017-12-13] MEDS ORDERED: Ondansetron ODT 4 MG TAB PO PRN (09:20)
[2017-12-13] MEDS ORDERED: Mag-Al 1200 mg/1200 mg/30 ML UDCUP PO PRN (09:20)
[2017-12-13] MEDS ORDERED: WARFARIN PO PRN (09:43)
--- NOTE | 2017-12-13 10:51 | PDOC.PN ---
- Subjective Encounter Start Date: 12/13/17 Encounter Start Time: 09:10 Patient seen and examined. No new complaints. No overnight events pt is more alert, she reports that night before admission she took pain pill and then she does not remember no chest pain she finished antibiotics last tuesday - Objective Resuscitation Status: Resuscitation Status FULL:Full Resuscitation MAR Reviewed: Yes Vital Signs & Weight: Vital Signs (12 hours) Temp Pulse Resp BP Pulse Ox 12/13/17 08:00 98.2 F 63 18 100 12/13/17 07:18 98.2 F 63 18 102/42 L 100 12/13/17 04:00 98 F 61 16 104/38 L 100 12/13/17 00:00 59 L 16 100/30 L 99 Weight Weight 224 lb I&O: 12/12/17 12/13/17 12/14/17 06:59 06:59 06:59 Intake Total 900 Balance 900 Result Diagrams: 12/13/17 04:34 12/13/17 04:34 Additional Labs: Accuchecks 12/13/17 12/13/17 12/12/17 04:29 00:20 21:28 POC Glucose 126 H 146 H 162 H 12/12/17 12/12/17 12/12/17 17:01 14:42 12:09 POC Glucose 154 H 159 H 129 H 12/12/17 11:13 POC Glucose 98 EKG Reviewed by me: Yes (nsr) Phys Exam - Physical Examination Constitutional: NAD HEENT: moist MMs Neck: no JVD, supple Respiratory: no wheezing, no rales, no rhonchi Cardiovascular: RRR, no significant murmur, no rub Gastrointestinal: soft, non-tender, no distention, positive bowel sounds left BKA Neurological: non-focal, normal sensation Lymphatic: no nodes Psychiatric: normal affect Skin: no rash, normal turgor Dx/Plan (1) Abnormal LFTs Code(s): R94.5 - ABNORMAL RESULTS OF LIVER FUNCTION STUDIES Status: Acute (2) Acute metabolic encephalopathy due to hypoglycemia Code(s): G93.41 - METABOLIC ENCEPHALOPATHY; E16.2 - HYPOGLYCEMIA, UNSPECIFIED Status: Resolved (3) Hypoglycemia associated with type 2 diabetes mellitus Code(s): E11.649 - TYPE 2 DIABETES MELLITUS WITH HYPOGLYCEMIA WITHOUT COMA Status: Resolved (4) Hyponatremia Code(s): E87.1 - HYPO-OSMOLALITY AND HYPONATREMIA Status: Acute (5) Non-ST elevation myocardial infarction (NSTEMI), type 2 Code(s): I21.A1 - MYOCARDIAL INFARCTION TYPE 2 Status: Acute (6) Anemia of renal disease Code(s): D63.1 - ANEMIA IN CHRONIC KIDNEY DISEASE Status: Chronic (7) Anxiety and depression Code(s): F41.8 - OTHER SPECIFIED ANXIETY DISORDERS Status: Chronic (8) Dyslipidemia Code(s): E78.5 - HYPERLIPIDEMIA, UNSPECIFIED Status: Chronic (9) ESRD (end stage renal disease) on dialysis Code(s): N18.6 - END STAGE RENAL DISEASE; Z99.2 - DEPENDENCE ON RENAL DIALYSIS Status: Chronic (10) History of left below knee amputation Code(s): Z89.512 - ACQUIRED ABSENCE OF LEFT LEG BELOW KNEE Status: Chronic (11) Macrocytic anemia Code(s): D53.9 - NUTRITIONAL ANEMIA, UNSPECIFIED Status: Chronic (12) Obesity (BMI 30-39.9) Code(s): E66.9 - OBESITY, UNSPECIFIED Status: Chronic (13) Secondary hyperparathyroidism of renal origin Code(s): N25.81 - SECONDARY HYPERPARATHYROIDISM OF RENAL ORIGIN Status: Chronic (14) Seizure disorder Code(s): G40.909 - EPILEPSY, UNSP, NOT INTRACTABLE, WITHOUT STATUS EPILEPTICUS Status: Chronic (15) Hypotension Status: Resolved - Plan cont current plan of care * cardiology evaluation * transfer to tele * start selected home medication * medication reviewed as below * symptomatic treatment. Review of Systems - Review of Systems ENT: negative: Ear Pain, Ear Discharge, Nose Pain, Nose Discharge, Nose Congestion, Mouth Pain, Mouth Swelling, Throat Pain, Throat Swelling, Other Respiratory: negative: Cough, Dry, Shortness of Breath, Hemoptysis, SOB with Excertion, Pleuritic Pain, Sputum, Wheezing Cardiovascular: negative: chest pain, palpitations, orthopnea, paroxysmal nocturnal dyspnea, edema, light headedness, other Gastrointestinal: negative: Nausea, Vomiting, Abdominal Pain, Diarrhea, Constipation, Melena, Hematochezia, Other Genitourinary: negative: Dysuria, Frequency, Incontinence, Hematuria, Retention , Other Musculoskeletal: negative: Neck Pain, Shoulder Pain, Arm Pain, Back Pain, Hand Pain, Leg Pain, Foot Pain, Other - Medications/Allergies Allergies/Adverse Reactions: Allergies Allergy/AdvReac Type Severity Reaction Status Date / Time No Known Drug Allergies Allergy Verified 11/03/17 11:31 Medications: Current Medications Acetaminophen (Tylenol) 650 mg PO Q4H PRN PRN Reason: Headache/Fever or Mild Pain Al Hydroxide/Mg Hydroxide (Maalox) 15 ml PO Q4H PRN PRN Reason: Heartburn or Indigestion Artificial Tears (Tears Renewed 15ml Bottle) 0 drop EA EYE PRN PRN PRN Reason: Dry Eyes Aspirin (Ecotrin) 81 mg PO DAILY [facility] Atorvastatin Calcium (Lipitor) 10 mg PO HS [facility] Bisacodyl (Dulcolax) 10 mg W[place] Q24H PRN PRN Reason: Constipation Dextrose/Water (Dextrose 50%) 25 gm SLOW IVP PRN PRN PRN Reason: Hypoglycemia Docusate Sodium (Colace) 100 mg PO BID [facility] Epoetin Robbi (Procrit) 7,500 units SC Q7D [facility] Last Admin: 12/12/17 21:28 Dose: 7,500 units Famotidine (Pepcid) 20 mg PO DAILY [facility] Ferrous Sulfate (Feosol) 325 mg PO QAM-WM [facility] Fluticasone Propionate (Flonase Nasal [place]) 0 gm NASAL DAILY [facility] Glucagon (Glucagon) 1 mg IM PRN PRN PRN Reason: Hypoglycemia Guaifenesin (Robitussin Sf) 200 mg PO Q4H PRN PRN Reason: Cough Heparin Sodium (Porcine) (Heparin) 5,000 units SC BID [facility] Last Admin: 12/13/17 08:53 Dose: Not Given Hydralazine HCl (Apresoline) 10 mg SLOW IVP Q4H PRN PRN Reason: Systolic BP > 180 Dextrose/Water (D5w) 1,000 mls @ 0 mls/hr IV .Q0M PRN; As Directed PRN Reason: Hypoglycemia Dextrose/Sodium Chloride (D5 0.9% Ns) 1,000 mls @ 75 mls/hr IV .[id number] [facility] Last Admin: 12/13/17 04:29 Dose: 1,000 mls Insulin Human Lispro (Humalog) 0 units SC .MILD SLIDING SCALE PRN PRN Reason: Mild Correctional Scale Insulin Human Lispro (Humalog) 0 units SC .BEDTIME SLIDING SC PRN PRN Reason: Bedtime Correctional Scale Metoprolol Tartrate (Lopressor) 12.5 mg PO BID [facility] Mineral Oil/White Petrolatum (Eucerin Cream) 0 gm TOP BIDPRN PRN PRN Reason: Dry Skin Miscellaneous Medication (Pharmacy To Dose) 0 each PO DAILYPRN PRN PRN Reason: LABS Nitroglycerin (Nitrostat) 0.4 mg SL Q5MIN PRN PRN Reason: Chest Pain Ondansetron HCl (Zofran) 4 mg IVP Q6H PRN PRN Reason: Nausea/Vomiting Ondansetron HCl (Zofran Odt) 4 mg PO Q6H PRN PRN Reason: Nausea/Vomiting Phenol (Chloraseptic [place] 180 Ml Bot) 0 ml PO PRN PRN PRN Reason: Sore Throat Phenytoin Sodium (Dilantin Er) 300 mg PO HS [facility] Quetiapine Fumarate (Seroquel) 25 mg PO HS [facility] Sodium Biphosphate/Sodium Phosphate (Fleet Enema) 133 ml [place] ONE PRN PRN Reason: Constipation Stop: 12/15/17 14:51 Sodium Chloride (Cloud Nasal [place] 0.65%) 0 ml EA NARE QIDPRN PRN PRN Reason: Nasal Congestion Sodium Chloride (Flush - Normal Saline) 10 ml IVF Q12HR [facility] Sodium Chloride (Flush - Normal Saline) 10 ml IVF PRN PRN PRN Reason: Saline Flush Vitamin B Complex/Vit C/Folic Acid (Nephro-Juany Tablet) 1 tab PO DAILY [facility] Warfarin Sodium (Coumadin) 2.5 mg PO DAILY [facility]
--- NOTE | 2017-12-13 11:23 | CON ---
DATE OF CONSULTATION: 12/13/2017 HISTORY OF PRESENT ILLNESS: Ms. Joseph is a 47-year-old female with ESRD and admitted for hypoglycemia with mental status change. We are being consulted for her maintenance hemodialysis. D uring the initial evaluation, the patient was also noted to have relatively low blood sugar. Of inte rest, this patient was recently admitted at [facility] due to an infected pacemaker wire. That is why pacemaker was said to have been removed. She was also bacteremic around that time. This morning, patient is feeling better, denies any new complaints. REVIEW OF SYSTEMS: Positive for mental status change. No chest pain or shortness of breath, no naus ea, no vomiting, no diarrhea. Appetite is fair. Energy level is fair. No fever or chills. No abdo earnestine pain. No dysuria. Occasional joint pains. Occasional back pain. MEDICATIONS: The patient is currently on aspirin 300 mg daily. She is on D5 normal saline at 75 mL per hour. Procrit 7,500 units subcutaneously every week, heparin 5000 units subcu b.i.d., and Hum[place] g sliding scale. PAST MEDICAL HISTORY: 1. ESRD secondary to diabetic nephropathy. 2. Type 2 diabetes mellitus. Recent bacteremia secondary to pacemaker wire colonization. 3. Peripheral vascular disease. 4. History of seizure disorder. 5. Depression. 6. Longstanding history of hypertension. 7. History of noncompliance, status post cardiac arrest. 8. History of chronic blindness. PAST SURGICAL HISTORY: 1. Status post left BKA. 2. Status post AV fistula placement. 3. Status post cuffed hemodialysis catheter placement. 4. Status post open cholecystectomy. 5. Status post left eye surgery. 6. Status post bilateral tubal ligation. 7. She also had status post right toe amputation. 8. Status post second finger amputation. SOCIAL HISTORY: The patient is currently a snf patient. Also, currently no history of smok ing or alcohol intake. She has several children and originally lives in [place]. She is . N o IV drug abuse. Status post blood transfusion. FAMILY HISTORY: Positive family history of ESRD. ALLERGIES: None. TRAUMA: None. IMMUNIZATIONS: Up to date. HOSPITALIZATIONS: Please see past medical history. PHYSICAL EXAMINATION: VITAL SIGNS: Blood pressure is noted at 103/70 with heart rate of 63, respiratory rate 18, pulse ox 100%. GENERAL: Noted to be awake, supine, comfortable, not in distress. SKIN: Adequate turgor. HEENT: Slightly pale conjunctivae, anicteric sclerae. NECK: No neck mass, no carotid bruits. Decreased visual acuity. LUNGS: Decreased breath sounds. HEART: Normal sinus rhythm. No murmur, no gallops, no rubs. ABDOMEN: Globular, soft, nontender, no masses. EXTREMITIES: Status post leg amputation. LABORATORY DATA: Laboratories of 12/12/2017, white count 8.6, hemoglobin 8.9. On 12/13/2017, sodium 128, potassium 3.3, chloride 95, carbon dioxide 25, BUN is noted at 25 with cre atinine 3.5, calcium 8.1. Glucose is 132. ASSESSMENT AND PLAN: 1. Hypoglycemia, resolved, continue supportive care. 2. End-stage renal disease, stable. We will be continued on current hemodialysis regimen. The chari ent is currently at the dialysis room, and we are initiating hemodialysis with this patient. I am at the bedside supervising her dialysis. Overall, prognosis remains guarded with this patient. 3. Anemia. The patient has been initiated on weekly Epogen.
--- NOTE | 2017-12-13 15:18 | CON ---
DATE OF CONSULTATION: 12/13/2017 REASON FOR CONSULTATION: Increased troponin level. HISTORY OF PRESENT ILLNESS: Ms. Joseph is a 47-year-old woman. The patient was recently hospital[facility] and was found to have Staph sepsis and a previous pacemaker. She was sent to [place] where the pa cemaker was removed. Fortunately, her heart rate has been okay. She has not had symptomatic bradyca rdia. She was brought to the hospital yesterday after she was found to be unresponsive, apparently s he was completely unresponsive and she was given D50 by percutaneous route. Her sugar was "low" prio r to that - after she received percutaneous D50, she was still hypoglycemic here. She did not have c hest pain or pressure, but she was severely hypotensive at one point. The patient is feeling better now. No chest pain or pressure. PAST MEDICAL HISTORY: 1. End-stage renal disease, on dialysis. 2. Longstanding diabetes. 3. History of hypertension. 4. Peripheral vascular disease with previous amputation of left lower extremity. 5. History of Staph septicemia. 6. History of cardiac arrest secondary to hyperkalemia. 7. History of cholecystectomy. 8. Pacemaker removal. PAST PSYCHIATRIC HISTORY: Anxiety and depression. ALLERGIES: None. SOCIAL HISTORY: Lives in [facility]. FAMILY HISTORY: Positive for end-stage renal disease. REVIEW OF SYSTEMS: Constitutional: No significant weight gain or loss. Vision: No changes. Heari ng: No changes. Pulmonary: No cough or wheezing. Gastrointestinal: No nausea, vomiting, or diarr hea. Skin: No rashes. Neurologic: No unilateral weakness or numbness. Psychiatric: No unusual d epression or anxiety. Hematologic: No unusual bruising. Skin: No rashes. PHYSICAL EXAMINATION: GENERAL: This is a very pleasant, chronically ill-appearing woman. VITAL SIGNS: Blood pressure 102/42, pulse 63 and regular. EYES: Sclerae nonicteric. MOUTH: Mucous membranes moist. NECK: Supple, no lymphadenopathy. LUNGS: Clear. No wheezing, rales, or rhonchi. CARDIAC: Normal S1, normal S2. There is no murmur, rub, or gallop. ABDOMEN: Soft, nontender. EXTREMITIES: No clubbing or cyanosis. There is moderate edema. There is a left below-knee amputati on. SKIN: Warm and dry. LABORATORY DATA: Hemoglobin is 9, troponin level was 1.186. Chest x-ray showed cardiomegaly with so me ? pulmonary congestion. Creatinine is 3.5. Potassium 3.3. EKG; sinus rhythm, nonspecific ST and T-wave changes. The patient did have previous cardiac catheterization done. No significant coronar y disease in 03/2013, 30% LAD plaque, relatively low blood pressure noted at the calf. ASSESSMENT: 1. Episode of severe hypotension. 2. Severe hypoglycemia, apparently related to insulin. 3. Peripheral vascular disease. 4. Recent pacemaker removal due to Staph sepsis. 5. End-stage renal disease, longstanding. PLAN: 1. Stop beta-blockers. 2. Repeat echocardiogram is normal previously. 3. Probably due stress testing this week. 4. In view of anemia, we will check iron levels.
[2017-12-13] MEDS: Atorvastatin Calcium 10 MG TAB PO SCH (20:38)
[2017-12-13] MEDS: Docusate 100 MG CAP PO SCH (20:38)
[2017-12-13] MEDS ORDERED: Metoprolol Tartrate 50 MG TAB PO SCH (21:00)
[2017-12-13] MEDS ORDERED: Metoprolol Tartrate 25 MG TAB PO SCH (21:00)
[2017-12-13] MEDS ORDERED: Simvastatin 20 MG TAB PO SCH (21:00)
[2017-12-14 04:41] LABS: #Eosinphils 0.1 thou/uL (0.0-0.7); #Lymphocytes 0.9 thou/uL (1.20-3.40); #Monocytes 0.4 thou/uL (0.11-0.59); #Neutrophils 5.8 thou/uL (1.40-6.50); %Basophils 0.3 % (0.0-1.0); %Eosinophils 1.5 % (0.0-10.0); %Lymphocytes 11.9 % (21.0-51.0); %Monocytes 5.7 % (0.0-10.0); %Neutrophils 80.6 % (42.0-75.0); Hemoglobin 8.8 g/dL (12.0-16.0); Mean Corpuscular HGB CONC 31.2 g/dL (32.0-36.0); Mean Corpuscular Hemoglobin 32.3 pg (27.0-31.0); Mean Platelet Volume 8.7 fL (7.4-10.4); Platelet Count 202 thou/uL (130-400); RBC Distribution Width 16.3 % (11.5-14.5); Red Blood Cell (RBC) Count 2.71 mill/uL (4.20-5.40); White Blood Cell (WBC) Count 7.2 thou/uL (4.8-10.8)
[2017-12-14 04:49] LABS: INR-International Normal Ratio 1.7; Prothrombin Time 20.7 SEC (12.0-14.7)
[2017-12-14 04:56] LABS: Albumin 2.2 g/dL (3.5-5.0); Anion Gap 10 mmol/L (10-20); BUN (Urea Nitrogen) 17 mg/dL (7.0-18.7); BUN/Creatinine Ratio 6.18; Calc. Creatinine Clearance 41 mL/min (70-130); Calcium 8.1 mg/dL (7.8-10.44); Carbon Dioxide 27 mmol/L (22-29); Cardiac Risk 5.6 (Less than 4.5); Chloride 101 mmol/L (98-107); Cholesterol 78 mg/dl (< 200 Desired); Estimated GFR-MDRD 19; Glucose 158 mg/dL (70-105); HDL Cholesterol 14 mg/dL (>60 Neg Risk); Iron 39 ug/dL (50-170); Iron Binding Capacity, Total 119 mcg/dL (265-497); LDL Cholesterol, Calculated 42 mg/dL; Phosphorus 2.6 mg/dL (2.3-4.7); Potassium 3.3 mmol/L (3.5-5.1); Sodium 135 mmol/L (136-145); Triglycerides 110 mg/dL (Less than 150)
[2017-12-14] MEDS ORDERED: Fluticasone Propionate Nasal Spray 16 gm Bottle NASAL SCH (09:00)
[2017-12-14] MEDS: Famotidine 20 MG TAB PO SCH (09:01)
[2017-12-14] MEDS: Aspirin 81 mg Enteric Coated Tablet PO SCH (09:01)
[2017-12-14] MEDS: Warfarin Sodium 2.5 MG TAB PO SCH ×2 (09:01→09:07)
[2017-12-14] MEDS: Docusate 100 MG CAP PO SCH ×3 (09:01→20:45)
[2017-12-14] MEDS: Fluticasone Propionate Nasal Spray 16 gm Bottle NASAL SCH (09:01)
[2017-12-14] MEDS: Ferrous Sulfate 325 MG TAB PO SCH (09:01)
[2017-12-14] MEDS: Folic Acid/Vit B Comp W-C PO SCH (09:01)
--- NOTE | 2017-12-14 10:30 | PRG ---
DATE OF SERVICE: 12/14/2017 SUBJECTIVE: The patient is doing better. Had no acute complaints. OBJECTIVE: VITAL SIGNS: On exam, temperature 98.6, pulse 69, respirations 19, O2 sat 96%, blood pressure 104/46 . HEENT: Unremarkable. NECK: No JVD. CHEST: Clear. CARDIAC: S1 and S2, regular. ABDOMEN: Soft. EXTREMITIES: Left [id number] amputation. LABORATORY DATA: Sodium 135, potassium 3.3, chloride 101, CO2 of 27, BUN 70, creatinine 2.7, glucose 158, white blood cell count 7.2, hematocrit 28.1, platelet count 202. INR is 1.7. ASSESSMENT: 1. Resolved hypoglycemia. 2. Improved hyponatremia. 3. End-stage renal disease. PLAN: Can transfer to the floor at any time. She is probably ready for discharge. Her warfarin may need to be adjusted given that she has subtherapeutic INR. No further Pulmonary Critical Care recom mendations. We will sign off. Please recall if help needed.
--- NOTE | 2017-12-14 10:58 | PRG ---
DATE OF SERVICE: 12/14/2017 SUBJECTIVE: Ms. Joseph is a 47-year-old female with ESRD - on maintenance hemodialysis. She was admitted for hypoglycemia and mental status change. Blood sugars improved and her mental st atus is back to baseline. She underwent hemodialysis yesterday without any difficulties. She has no new complaints today. She is feeling better. OBJECTIVE: VITAL SIGNS: Blood pressure is 104/46, heart rate 69, respiratory rate 19, temperature 98.6, pulse o x is 96%. GENERAL: Noted to be awake, supine, comfortable, not in distress. SKIN: Adequate turgor. HEENT: Pinkish conjunctivae, anicteric sclerae. NECK: No neck mass, no carotid bruits, no JVD. CHEST: No deformities. LUNGS: Clear breath sounds. No wheezing, no crackles. HEART: Normal sinus rhythm. No murmur, no gallops, no rubs. ABDOMEN: Globular, soft, nontender, no masses. EXTREMITIES: No edema, no deformities. MEDICATIONS: 12/14/2017 - Reviewed. LABORATORY: 12/14/2017 - White count 7.3, hemoglobin 8.8, sodium 135, potassium 3.3, chloride 101, c arbon dioxide 27, BUN 17, creatinine 2.75. Ferritin is 28,085, TIBC 119, iron is 39, phosphorus 2.6, albumin 2.2. ASSESSMENT AND PLAN: 1. Anemia, on weekly Epogen, p.r.n. blood transfusion. 2. Hypoglycemia, resolved. 3. End-stage renal disease, stable. We will continue current Tuesday, , and Tuesday hemodi alysis regimen. Again, fluid removal only as tolerated. 4. Hypotension, beta blockers have been discontinued. Overall, agree with current management. Continue current supportive care.
--- NOTE | 2017-12-14 11:28 | PDOC.PN ---
- Subjective Encounter Start Date: 12/14/17 Encounter Start Time: 09:15 Patient seen and examined. No new complaints. No overnight events - Objective Resuscitation Status: Resuscitation Status FULL:Full Resuscitation MAR Reviewed: Yes Vital Signs & Weight: Vital Signs (12 hours) Temp Pulse Resp BP Pulse Ox 12/14/17 08:00 98.6 F 69 19 96 12/14/17 07:39 98.6 F 69 19 104/46 L 96 12/14/17 03:00 99.1 F 72 18 94/30 L 100 Weight Admit Weight 221 lb Weight 222 lb 1 oz I&O: 12/13/17 12/14/17 12/15/17 06:59 06:59 06:59 Intake Total 900 1130 Output Total 0 Balance 900 1130 Result Diagrams: 12/14/17 04:07 12/14/17 04:07 Additional Labs: Accuchecks 12/14/17 12/14/17 12/13/17 10:40 05:29 20:22 POC Glucose 189 H 147 H 214 H 12/13/17 12/13/17 16:26 13:47 POC Glucose 167 H 105 EKG Reviewed by me: Yes Phys Exam - Physical Examination Constitutional: NAD HEENT: PERRLA, moist MMs, sclera anicteric left eye blindness Neck: no nodes, no JVD, supple Respiratory: no wheezing, no rales, no rhonchi Cardiovascular: RRR, no significant murmur, no rub Gastrointestinal: soft, non-tender, no distention, positive bowel sounds Musculoskeletal: no edema, pulses present left BKA Neurological: non-focal Lymphatic: no nodes Psychiatric: normal affect Skin: no rash, normal turgor Dx/Plan (1) Abnormal LFTs Code(s): R94.5 - ABNORMAL RESULTS OF LIVER FUNCTION STUDIES Status: Acute (2) Acute metabolic encephalopathy due to hypoglycemia Code(s): G93.41 - METABOLIC ENCEPHALOPATHY; E16.2 - HYPOGLYCEMIA, UNSPECIFIED Status: Resolved (3) Hypoglycemia associated with type 2 diabetes mellitus Code(s): E11.649 - TYPE 2 DIABETES MELLITUS WITH HYPOGLYCEMIA WITHOUT COMA Status: Resolved (4) Hyponatremia Code(s): E87.1 - HYPO-OSMOLALITY AND HYPONATREMIA Status: Acute (5) Non-ST elevation myocardial infarction (NSTEMI), type 2 Code(s): I21.A1 - MYOCARDIAL INFARCTION TYPE 2 Status: Acute (6) Anemia of renal disease Code(s): D63.1 - ANEMIA IN CHRONIC KIDNEY DISEASE Status: Chronic (7) Anxiety and depression Code(s): F41.8 - OTHER SPECIFIED ANXIETY DISORDERS Status: Chronic (8) Dyslipidemia Code(s): E78.5 - HYPERLIPIDEMIA, UNSPECIFIED Status: Chronic (9) ESRD (end stage renal disease) on dialysis Code(s): N18.6 - END STAGE RENAL DISEASE; Z99.2 - DEPENDENCE ON RENAL DIALYSIS Status: Chronic (10) History of left below knee amputation Code(s): Z89.512 - ACQUIRED ABSENCE OF LEFT LEG BELOW KNEE Status: Chronic (11) Macrocytic anemia Code(s): D53.9 - NUTRITIONAL ANEMIA, UNSPECIFIED Status: Chronic (12) Obesity (BMI 30-39.9) Code(s): E66.9 - OBESITY, UNSPECIFIED Status: Chronic (13) Secondary hyperparathyroidism of renal origin Code(s): N25.81 - SECONDARY HYPERPARATHYROIDISM OF RENAL ORIGIN Status: Chronic (14) Seizure disorder Code(s): G40.909 - EPILEPSY, UNSP, NOT INTRACTABLE, WITHOUT STATUS EPILEPTICUS Status: Chronic (15) Hypotension Status: Resolved - Plan cont current plan of care * DC warfarin , [facility] * transfer to tele * echo pending result * medication reviewed as below * symptomatic treatment * will monitor today and adjust meds, expecting discharge tomorrow. Review of Systems - Review of Systems ENT: negative: Ear Pain, Ear Discharge, Nose Pain, Nose Discharge, Nose Congestion, Mouth Pain, Mouth Swelling, Throat Pain, Throat Swelling, Other Respiratory: negative: Cough, Dry, Shortness of Breath, Hemoptysis, SOB with Excertion, Pleuritic Pain, Sputum, Wheezing Cardiovascular: negative: chest pain, palpitations, orthopnea, paroxysmal nocturnal dyspnea, edema, light headedness, other Gastrointestinal: negative: Nausea, Vomiting, Abdominal Pain, Diarrhea, Constipation, Melena, Hematochezia, Other Genitourinary: negative: Dysuria, Frequency, Incontinence, Hematuria, Retention , Other Musculoskeletal: negative: Neck Pain, Shoulder Pain, Arm Pain, Back Pain, Hand Pain, Leg Pain, Foot Pain, Other Skin: negative: Rash, Lesions, Remy, Bruising, Other - Medications/Allergies Allergies/Adverse Reactions: Allergies Allergy/AdvReac Type Severity Reaction Status Date / Time No Known Drug Allergies Allergy Verified 11/03/17 11:31 Medications: Current Medications Acetaminophen (Tylenol) 650 mg PO Q4H PRN PRN Reason: Headache/Fever or Mild Pain Al Hydroxide/Mg Hydroxide (Maalox) 15 ml PO Q4H PRN PRN Reason: Heartburn or Indigestion Artificial Tears (Tears Renewed 15ml Bottle) 0 drop EA EYE PRN PRN PRN Reason: Dry Eyes Aspirin (Ecotrin) 81 mg PO DAILY [facility] Last Admin: 12/14/17 09:01 Dose: 81 mg Atorvastatin Calcium (Lipitor) 10 mg PO HS [facility] Last Admin: 12/13/17 20:38 Dose: 10 mg Bisacodyl (Dulcolax) 10 mg [place] Q24H PRN PRN Reason: Constipation Dextrose/Water (Dextrose 50%) 25 gm SLOW IVP PRN PRN PRN Reason: Hypoglycemia Docusate Sodium (Colace) 100 mg PO BID [facility] Last Admin: 12/14/17 09:03 Dose: Not Given Epoetin Robbi (Procrit) 7,500 units SC Q7D [facility] Last Admin: 12/12/17 21:28 Dose: 7,500 units Famotidine (Pepcid) 20 mg PO DAILY [facility] Last Admin: 12/14/17 09:01 Dose: 20 mg Ferrous Sulfate (Feosol) 325 mg PO [facility] Last Admin: 12/14/17 09:01 Dose: 325 mg Fluticasone Propionate (Flonase Nasal Enigma) 0 gm NASAL DAILY [facility] Last Admin: 12/14/17 09:01 Dose: Not Given Glucagon (Glucagon) 1 mg IM PRN PRN PRN Reason: Hypoglycemia Guaifenesin (Robitussin Sf) 200 mg PO Q4H PRN PRN Reason: Cough Hydralazine HCl (Apresoline) 10 mg SLOW IVP Q4H PRN PRN Reason: Systolic BP > 180 Dextrose/Water (D5w) 1,000 mls @ 0 mls/hr IV .Q0M PRN; As Directed PRN Reason: Hypoglycemia Insulin Human Lispro (Humalog) 0 units SC .MILD SLIDING SCALE PRN PRN Reason: Mild Correctional Scale Insulin Human Lispro (Humalog) 0 units SC .BEDTIME SLIDING SC PRN PRN Reason: Bedtime Correctional Scale Mineral Oil/White Petrolatum (Eucerin Cream) 0 gm TOP BIDPRN PRN PRN Reason: Dry Skin Miscellaneous Medication (Pharmacy To Dose) 0 each PO DAILYPRN PRN PRN Reason: LABS Nitroglycerin (Nitrostat) 0.4 mg SL Q5MIN PRN PRN Reason: Chest Pain Ondansetron HCl (Zofran) 4 mg IVP Q6H PRN PRN Reason: Nausea/Vomiting Ondansetron HCl (Zofran Odt) 4 mg PO Q6H PRN PRN Reason: Nausea/Vomiting Phenol (Chloraseptic Enigma 180 Ml Bot) 0 ml PO PRN PRN PRN Reason: Sore Throat Phenytoin Sodium (Dilantin Er) 300 mg PO [facility] Last Admin: 12/13/17 20:38 Dose: 300 mg Quetiapine Fumarate (Seroquel) 25 mg PO [facility] Last Admin: 12/13/17 20:44 Dose: Not Given Sodium Biphosphate/Sodium Phosphate (Fleet Enema) 133 ml [place] ONE PRN PRN Reason: Constipation Stop: 12/15/17 14:51 Sodium Chloride ([place] Nasal Enigma 0.65%) 0 ml EA NARE QIDPRN PRN PRN Reason: Nasal Congestion Sodium Chloride (Flush - Normal Saline) 10 ml IVF Q12HR [facility] Last Admin: 12/14/17 09:01 Dose: Not Given Sodium Chloride (Flush - Normal Saline) 10 ml IVF PRN PRN PRN Reason: Saline Flush Vitamin B Complex/Vit C/Folic Acid (Nephro-Juany Tablet) 1 tab PO DAILY [facility] Last Admin: 12/14/17 09:01 Dose: 1 tab Warfarin Sodium (Coumadin) 2.5 mg PO DAILY [facility] Last Admin: 12/14/17 09:07 Dose: Not Given
--- NOTE | 2017-12-14 11:51 | PRG ---
DATE OF SERVICE: 12/14/2017 SUBJECTIVE: Mrs. Joseph is doing well. No complaints. OBJECTIVE: VITAL SIGNS: Blood pressure is 104/46, pulse 70 and irregular. LUNGS: Clear. CARDIAC: Normal S1, normal S2. ABDOMEN: Soft, nontender. EXTREMITIES: No edema. ASSESSMENT: 1. Episode of hypotension and severe hypoglycemia, resolved. 2. Previous pacemaker removal due to sepsis. 3. Was on Coumadin apparently due to recent access graft. She said she does not need to be on Couma din any more. PLAN: 1. Echocardiogram is pending. 2. Tentatively plan a stress test tomorrow if the echo has normal left ventricular function.
[2017-12-14] MEDS: Atorvastatin Calcium 10 MG TAB PO SCH (20:44)
[2017-12-14] MEDS: Heparin 5,000 UNITS/ML VIAL SC SCH (20:49)
[2017-12-15 05:30] LABS: INR-International Normal Ratio 1.5; Prothrombin Time 18.4 SEC (12.0-14.7)
[2017-12-15 05:35] LABS: #Eosinphils 0.2 thou/uL (0.0-0.7); #Lymphocytes 1.5 thou/uL (1.20-3.40); #Monocytes 0.6 thou/uL (0.11-0.59); #Neutrophils 4.8 thou/uL (1.40-6.50); %Basophils 0.3 % (0.0-1.0); %Eosinophils 2.2 % (0.0-10.0); %Lymphocytes 21.4 % (21.0-51.0); %Monocytes 8.2 % (0.0-10.0); %Neutrophils 67.9 % (42.0-75.0); Hemoglobin 8.8 g/dL (12.0-16.0); Mean Corpuscular HGB CONC 30.8 g/dL (32.0-36.0); Mean Corpuscular Hemoglobin 31.9 pg (27.0-31.0); Platelet Count 182 thou/uL (130-400); RBC Distribution Width 16.3 % (11.5-14.5); Red Blood Cell (RBC) Count 2.75 mill/uL (4.20-5.40)
[2017-12-15 05:40] LABS: ALT (SGPT) Less than 7 U/L (8-55); AST (SGOT) 477 U/L (5-34); Albumin 2.3 g/dL (3.5-5.0); Alkaline Phosphatase 551 U/L (40-150); Anion Gap 11 mmol/L (10-20); BUN (Urea Nitrogen) 21 mg/dL (7.0-18.7); Bilirubin, Total 0.4 mg/dL (0.2-1.2); Calc. Creatinine Clearance 33 mL/min (70-130); Calcium 8.1 mg/dL (7.8-10.44); Carbon Dioxide 26 mmol/L (22-29); Chloride 97 mmol/L (98-107); Estimated GFR-MDRD 14; Globulin 5.1 g/dL (2.4-3.5); Glucose 163 mg/dL (70-105); Potassium 3.4 mmol/L (3.5-5.1); Protein, Total 7.4 g/dL (6.0-8.3); Sodium 131 mmol/L (136-145)
[2017-12-15 07:44] LABS: Hep B Surf Ag Non-Reactive S/CO (NonReactive)
[2017-12-15 07:47] LABS: HBCM Index 0.16 S/CO (0-0.79); HBSAg Index 0.16 S/CO (0-0.99); Hep A IgM AB Non-Reactive (NonReactive); Hep A IgM S/CO 0.19 S/CO (0-0.79); Hep B Surf Ag Non-Reactive S/CO (NonReactive); Hep C IgG Ab Non-Reactive (NonReactive); Hep C Index 0.09 S/CO (0-0.79); Hepatitis B Core IGM Abs Non-Reactive (NonReactive)
--- NOTE | 2017-12-15 07:49 | ULT ---
RIGHT UPPER QUADRANT ULTRASOUND: DATE: 12/15/17. PROVIDED CLINICAL HISTORY: Elevated LFTs. FINDINGS: Comparison is made with the study dated 07/25/11. The liver appears moderately enlarged measuring abo ut 19 cm in craniocaudal dimension at the right hepatic lobe. There is increased echogenicity to the hepatic parenchyma suggesting fatty infiltration without evidence for focal sparing. There is no evidence for intrahepatic biliary ductal dilatation. The common duct measures approximat felice 1.5 cm. The gallbladder is surgically absent. The right kidney are not visualized. The pancrea s is suboptimally visualized. A small amount of free intraperitoneal fluid is suspected. IMPRESSION: 1. Dilated common duct, which is new with respect to the prior study. This could be, in part, on th e basis of post-cholecystectomy status. Correlation with laboratory values is recommended to exclude biliary obstructive change. Correlation with MRCP may be useful as clinically indicated. 2. Fatty infiltration of the liver. POS: ОЛЕГ
--- NOTE | 2017-12-15 08:48 | PRG ---
DATE OF SERVICE: 12/15/2017 SERVICE: Renal Medicine. SUBJECTIVE: Ms. Joseph is a 47-year-old female being [facility] her maintenance hemodialysis. She is currently undergoing dialysis. I am at the bedside supervisin romel her on dialysis. Attempting to max out fluid removal as tolerated. OBJECTIVE: VITAL SIGNS: Blood pressure 122/59, heart rate 73, respiratory rate 16, temperature 99.4, pulse ox 9 8%. GENERAL: Awake, alert, comfortable, not in distress. SKIN: Adequate turgor. HEENT: Slightly pale conjunctivae, anicteric sclerae. NECK: No neck mass, no carotid bruits, no JVD. CHEST: No deformities. LUNGS: Clear breath sounds. No wheezing, no crackles. HEART: Normal sinus rhythm. No murmur, no gallops or rubs. ABDOMEN: Globular, soft. EXTREMITIES: Status post leg amputation. MEDICATIONS: Of 12/15/2017 was reviewed. LABORATORY DATA: Of 12/15/2017, white count 7, hemoglobin 8.8. Sodium 131, potassium 3.4, chloride 97, carbon dioxide 26, BUN 21, creatinine 3.6, AST 477, ALT 7, albumin 2.3. ASSESSMENT AND PLAN: 1. End-stage renal disease, stable. Continue current hemodialysis regimen. Fluid removal as tolera brooke. We will attempt to use a 3-0 potassium bath with this patient. 2. Anemia, continuing weekly Epogen. No indication for blood transfusion. 3. Hypoglycemia, resolved.
--- NOTE | 2017-12-15 09:51 | PDOC.PN ---
- Subjective Encounter Start Date: 12/15/17 Encounter Start Time: 07:50 Patient seen and examined. No new complaints. No overnight events - Objective Resuscitation Status: Resuscitation Status FULL:Full Resuscitation MAR Reviewed: Yes Vital Signs & Weight: Vital Signs (12 hours) Temp Pulse Resp BP Pulse Ox 12/15/17 03:25 99.4 F 73 16 122/59 L 98 12/15/17 01:27 97 12/14/17 23:50 98.5 F 71 20 116/57 L 97 Weight Admit Weight 221 lb Weight 237 lb 9.6 oz I&O: 12/14/17 12/15/17 12/16/17 06:59 06:59 06:59 Intake Total 1130 860 Output Total 0 0 Balance 1130 860 Result Diagrams: 12/15/17 04:31 12/15/17 04:30 Additional Labs: Accuchecks 12/15/17 12/14/17 12/14/17 06:10 20:35 16:29 POC Glucose 172 H 223 H 164 H 12/14/17 10:40 POC Glucose 189 H EKG Reviewed by me: Yes (nsr) Phys Exam - Physical Examination Constitutional: NAD HEENT: PERRLA, moist MMs, sclera anicteric left eye blindness Neck: no JVD, supple Respiratory: no wheezing, no rales, no rhonchi Cardiovascular: RRR, no significant murmur, no rub Gastrointestinal: soft, non-tender, no distention, positive bowel sounds Musculoskeletal: no edema, pulses present left BKA Neurological: non-focal, normal sensation Psychiatric: normal affect, A&O x 3 Skin: no rash, normal turgor Dx/Plan (1) Abnormal LFTs Code(s): R94.5 - ABNORMAL RESULTS OF LIVER FUNCTION STUDIES Status: Acute (2) Acute metabolic encephalopathy due to hypoglycemia Code(s): G93.41 - METABOLIC ENCEPHALOPATHY; E16.2 - HYPOGLYCEMIA, UNSPECIFIED Status: Resolved (3) Hypoglycemia associated with type 2 diabetes mellitus Code(s): E11.649 - TYPE 2 DIABETES MELLITUS WITH HYPOGLYCEMIA WITHOUT COMA Status: Resolved (4) Hyponatremia Code(s): E87.1 - HYPO-OSMOLALITY AND HYPONATREMIA Status: Acute (5) Non-ST elevation myocardial infarction (NSTEMI), type 2 Code(s): I21.A1 - MYOCARDIAL INFARCTION TYPE 2 Status: Acute (6) Anemia of renal disease Code(s): D63.1 - ANEMIA IN CHRONIC KIDNEY DISEASE Status: Chronic (7) Anxiety and depression Code(s): F41.8 - OTHER SPECIFIED ANXIETY DISORDERS Status: Chronic (8) Dyslipidemia Code(s): E78.5 - HYPERLIPIDEMIA, UNSPECIFIED Status: Chronic (9) ESRD (end stage renal disease) on dialysis Code(s): N18.6 - END STAGE RENAL DISEASE; Z99.2 - DEPENDENCE ON RENAL DIALYSIS Status: Chronic (10) History of left below knee amputation Code(s): Z89.512 - ACQUIRED ABSENCE OF LEFT LEG BELOW KNEE Status: Chronic (11) Macrocytic anemia Code(s): D53.9 - NUTRITIONAL ANEMIA, UNSPECIFIED Status: Chronic (12) Obesity (BMI 30-39.9) Code(s): E66.9 - OBESITY, UNSPECIFIED Status: Chronic (13) Secondary hyperparathyroidism of renal origin Code(s): N25.81 - SECONDARY HYPERPARATHYROIDISM OF RENAL ORIGIN Status: Chronic (14) Seizure disorder Code(s): G40.909 - EPILEPSY, UNSP, NOT INTRACTABLE, WITHOUT STATUS EPILEPTICUS Status: Chronic (15) Hypotension Status: Resolved (16) Fatty liver Code(s): K76.0 - FATTY (CHANGE OF) LIVER, NOT ELSEWHERE CLASSIFIED Status: Chronic (17) Dilated bile duct Code(s): K83.8 - OTHER SPECIFIED DISEASES OF BILIARY TRACT Status: Acute (18) Severe tricuspid regurgitation Code(s): I07.1 - RHEUMATIC TRICUSPID INSUFFICIENCY Status: Chronic (19) Pulmonary hypertension Code(s): I27.20 - PULMONARY HYPERTENSION, UNSPECIFIED Status: Chronic - Plan cont current plan of care * HD as per nephrology * medication reviewed as below * symptomatic treatment * today will US RUQ for abnormal LFT and check hepatitis profile * monitor today and adjust medication. * consult GI Review of Systems - Review of Systems Constitutional: negative: fever, chills, sweats, weakness, malaise, other ENT: negative: Ear Pain, Ear Discharge, Nose Pain, Nose Discharge, Nose Congestion, Mouth Pain, Mouth Swelling, Throat Pain, Throat Swelling, Other Respiratory: negative: Cough, Dry, Shortness of Breath, Hemoptysis, SOB with Excertion, Pleuritic Pain, Sputum, Wheezing Cardiovascular: negative: chest pain, palpitations, orthopnea, paroxysmal nocturnal dyspnea, edema, light headedness, other Gastrointestinal: negative: Nausea, Vomiting, Abdominal Pain, Diarrhea, Constipation, Melena, Hematochezia, Other Genitourinary: negative: Dysuria, Frequency, Incontinence, Hematuria, Retention , Other Musculoskeletal: negative: Neck Pain, Shoulder Pain, Arm Pain, Back Pain, Hand Pain, Leg Pain, Foot Pain, Other - Medications/Allergies Allergies/Adverse Reactions: Allergies Allergy/AdvReac Type Severity Reaction Status Date / Time No Known Drug Allergies Allergy Verified 11/03/17 11:31 Medications: Current Medications Acetaminophen (Tylenol) 650 mg PO Q4H PRN PRN Reason: Headache/Fever or Mild Pain Al Hydroxide/Mg Hydroxide (Maalox) 15 ml PO Q4H PRN PRN Reason: Heartburn or Indigestion Artificial Tears (Tears Renewed 15ml Bottle) 0 drop EA EYE PRN PRN PRN Reason: Dry Eyes Aspirin (Ecotrin) 81 mg PO DAILY [facility] Last Admin: 12/14/17 09:01 Dose: 81 mg Atorvastatin Calcium (Lipitor) 10 mg PO HS [facility] Last Admin: 12/14/17 20:44 Dose: 10 mg Bisacodyl (Dulcolax) 10 mg NM Q24H PRN PRN Reason: Constipation Dextrose/Water (Dextrose 50%) 25 gm SLOW IVP PRN PRN PRN Reason: Hypoglycemia Docusate Sodium (Colace) 100 mg PO BID [facility] Last Admin: 12/14/17 20:45 Dose: 100 mg Epoetin Robbi (Procrit) 7,500 units SC Q7D [facility] Last Admin: 12/12/17 21:28 Dose: 7,500 units Famotidine (Pepcid) 20 mg PO DAILY [facility] Last Admin: 12/14/17 09:01 Dose: 20 mg Ferrous Sulfate (Feosol) 325 mg PO [facility] Last Admin: 12/14/17 09:01 Dose: 325 mg Fluticasone Propionate (Flonase Nasal [place]) 0 gm NASAL DAILY [facility] Last Admin: 12/14/17 09:01 Dose: Not Given Glucagon (Glucagon) 1 mg IM PRN PRN PRN Reason: Hypoglycemia Guaifenesin (Robitussin Sf) 200 mg PO Q4H PRN PRN Reason: Cough Heparin Sodium (Porcine) (Heparin) 5,000 units SC BID [facility] Last Admin: 12/14/17 20:49 Dose: Not Given Hydralazine HCl (Apresoline) 10 mg SLOW IVP Q4H PRN PRN Reason: Systolic BP > 180 Dextrose/Water (D5w) 1,000 mls @ 0 mls/hr IV .Q0M PRN; As Directed PRN Reason: Hypoglycemia Insulin Human Lispro (Humalog) 0 units SC .MILD SLIDING SCALE PRN PRN Reason: Mild Correctional Scale Insulin Human Lispro (Humalog) 0 units SC .BEDTIME SLIDING SC PRN PRN Reason: Bedtime Correctional Scale Mineral Oil/White Petrolatum (Eucerin Cream) 0 gm TOP BIDPRN PRN PRN Reason: Dry Skin Nitroglycerin (Nitrostat) 0.4 mg SL Q5MIN PRN PRN Reason: Chest Pain Ondansetron HCl (Zofran) 4 mg IVP Q6H PRN PRN Reason: Nausea/Vomiting Ondansetron HCl (Zofran Odt) 4 mg PO Q6H PRN PRN Reason: Nausea/Vomiting Phenol (Chloraseptic [place] 180 Ml Bot) 0 ml PO PRN PRN PRN Reason: Sore Throat Phenytoin Sodium (Dilantin Er) 300 mg PO [facility] Last Admin: 12/14/17 20:45 Dose: 300 mg Quetiapine Fumarate (Seroquel) 25 mg PO [facility] Last Admin: 12/14/17 20:46 Dose: 25 mg Sodium Biphosphate/Sodium Phosphate (Fleet Enema) 133 ml [place] ONE PRN PRN Reason: Constipation Stop: 12/15/17 14:51 Sodium Chloride ([place] Nasal [place] 0.65%) 0 ml EA NARE QIDPRN PRN PRN Reason: Nasal Congestion Sodium Chloride (Flush - Normal Saline) 10 ml IVF Q12HR [facility] Last Admin: 12/14/17 09:01 Dose: Not Given Sodium Chloride (Flush - Normal Saline) 10 ml IVF PRN PRN PRN Reason: Saline Flush Vitamin B Complex/Vit C/Folic Acid (Nephro-Juany Tablet) 1 tab PO DAILY [facility] Last Admin: 12/14/17 09:01 Dose: 1 tab
--- NOTE | 2017-12-15 10:09 | PQF ---
DATE: 12-15-17 ATTN: DR. KARIS BUSBY Please exercise your independent, professional judgment in responding to the clarification form. Clinical indicators are provided on the bottom of this form for your review Please check appropriate box(s): ____x___ I (concur) with the Wound Care findings as stated below. [ ] Pressure Ulcer: (Stage I: Erythema; Stage II: Partial thickness; Stage III : Full thickness; Stage IV: Necrosis to muscle/bone) [ ] Location: POA: [ ] Yes [ ] No[ ] Unable to determine Stage (I to IV): (Left Right Bilateral N/A ) [ ] Gangrene present [ ] Yes [ ] ischemic gangrene [ ] gas gangrene [ ] No [ ] No pressure ulcer diagnosis [ ] Deep tissue injury [ ] Other diagnosis [ ] Unable to determine In addition, please specify: Present on Admission (POA): [x ] Yes [ ] No [ ] Unable to determine For continuity of documentation, please document condition throughout progress notes and discharge summary. Thank You. CLINICAL INDICATORS - SIGNS / SYMPTOMS / LABS WOUND CARE CONSULT 12-13-17: PRESSURE ULCER LEFT BUTTOCK STAGE 3 RISK FACTORS: ER: UNRESPONSIVENESS, ESRD, DM 2, HTN, L EYE BLINDNESS, L BKA, FROM RETIREMENT, HX OF CVA WITH DEFICITS PER DAUGHTER TREATMENTS: WOUND CARE CONSULT ( 12-13-17): WOUND TO BUTTOCK SOCIOLOGY INSTRUCTOR. DRESSING APPLIED AND PT ENCOURAGED TO REPOSITION OFTEN. (This form is maintained as a part of the permanent medical record) 2014 [employer]. All Rights Reserved [email or web address] [email or web address] Office: [phone] VICTORIANO
[2017-12-15] MEDS: Ferrous Sulfate 325 MG TAB PO SCH (15:23)
[2017-12-15] MEDS: Aspirin 81 mg Enteric Coated Tablet PO SCH (15:24)
[2017-12-15] MEDS: Famotidine 20 MG TAB PO SCH (15:24)
[2017-12-15] MEDS: Fluticasone Propionate Nasal Spray 16 gm Bottle NASAL SCH (15:24)
[2017-12-15] MEDS: Heparin 5,000 UNITS/ML VIAL SC SCH ×2 (15:24→20:48)
[2017-12-15] MEDS: Docusate 100 MG CAP PO SCH ×2 (15:24→20:47)
[2017-12-15] MEDS: Folic Acid/Vit B Comp W-C PO SCH (15:24)
[2017-12-15] MEDS: Atorvastatin Calcium 10 MG TAB PO SCH (23:25)
[2017-12-16 05:25] LABS: INR-International Normal Ratio 1.3; Prothrombin Time 16.8 SEC (12.0-14.7)
--- NOTE | 2017-12-16 06:54 | CON ---
DATE OF CONSULTATION: 12/15/2017 REFERRING PHYSICIAN: Dr. Braulio Parham. REASON FOR CONSULTATION: Abnormal LFTs and abdominal sonogram showing dilated CBD. HISTORY OF PRESENT ILLNESS: Ms. Sherie Joseph is a very pleasant 47-year-old Latin-Mexican female with multiple medical problems. [facility] and was brought to the ER. At the time of admission, she was also hypotensive, and she was given IV dextros e and she did respond to the D50 and she started getting better. However, she remained lethargic and somnolent for a while. After a while, this patient got better and her mental status was back to [facility]. The patient really does not recall what exactly happened and how she became unresponsive. Sh e had no similar episodes in the past. The patient was recently hospitalized because of Staph aureus sepsis and it was felt that this is from the infected pacemaker wire with vegetations. She was sent to [place] and the pacemaker was removed. The patient has had a cholecystectomy probably about more than 15 years ago. The patient is known to me from before. However, I have not seen the patient for the last 6-7 years. She has seen me one time for dysphagia and another time for occult bleeding. B oth times, her EGD was negative, but except for some retained food material. Subsequently, she was a dmitted several times and was seen by Dr. Guerra one time, Dr. Duke one time and also by Dr. Spencer on e time. The patient has abdominal pain. No nausea or vomiting. She has good appetite. She denies any dyspepsia, dysphagia, etc. On admission, she was found to have elevated LFTs. The alkaline phos phatase markedly elevated and also ALT. She had an abdominal sonogram done today. The sonogram show s dilated CBD to 1.5 cm. I have seen the patient, I believe in 2011 for the same reason when she had dilation of the CBD. At that time, her liver function tests were normal. It was felt the dilation of CBD is because of previous cholecystectomy. However, on this admission, her liver function tests were markedly elevated. Interestingly, she has no abdominal pain, no nausea or any GI symptoms. Her bowel movements are constant off and on. No history of hematochezia, no melena. No other relevant history. MEDICAL ILLNESSES: 1. Chronic kidney disease, on dialysis 3 times a week. 2. Type 2 diabetes. 3. Hypertension. 4. Dyslipidemia. 5. Diabetic gastroparesis. 6. Seizure disorder. 7. Symptomatic bradycardia, status post pacemaker implant and successfully taken out because of Stap h aureus sepsis. Other medical illnesses include cardiac arrest secondary to hyperkalemia with resuscitation. 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 She also has history of anxiety, depression a nd bipolar disorder. SURGERIES: 1. Status post below left knee amputation. 2. Left eye surgery. 3. Right second and third toe amputation. 4. Right second finger amputation. 5. Bilateral tubal ligation. 6. Status post open cholecystectomy. 7. Status post AV fistula for dialysis. ALLERGIES: None. SOCIAL HISTORY: The patient does not smoke or drink alcohol. FAMILY HISTORY: Multiple members in the family has had chronic kidney disease. MEDICATIONS: 1. Amlodipine 10 mg once a day. 2. PhosLo 667 capsules p.o. 3 times a day. 3. Celexa 20 once a day. 4. Clonidine 0.1 mg p.o. twice a day. 5. Metoprolol 50 mg p.o. twice a day. 6. Dilantin 300 mg p.o. at bedtime. 7. Seroquel 20 mg p.o. at bedtime. 8. Zocor 40 once a day. 9. Warfarin 2.5 mg p.o. once a day. REVIEW OF SYSTEMS: Ten-point systems reviewed. Constitutional: No history of fever, no night sweat s, no weight loss. Has good energy level. Respiratory System: No history of chronic cough, hemopty sis, dyspnea. Cardiovascular System: No chest pain, no palpitation, no orthopnea or PND. Gastroint estinal: No abdominal pain, no nausea or vomiting, no hematochezia or melena. Genitourinary: Unrem arkable. Musculoskeletal: History of back pain and arthralgias. Neuropsychiatric: History of depr ession, anxiety and bipolar disorder. PHYSICAL EXAMINATION: GENERAL: The patient is awake, alert, and communicative. She is in no distress. She denies any abd ominal pain or nausea. VITAL SIGNS: Stable. She is afebrile. Her pulse is 89 and blood pressure 126/76. HEENT: Conjunctivae clear. NECK: Supple. No adenitis or thyromegaly noted. CARDIOVASCULAR SYSTEM: First and second heart sounds normal. LUNGS: Clear to auscultation. ABDOMEN: Soft to palpate. Abdomen is nontender. There is no organomegaly. No masses. Bowel sound s normal. EXTREMITIES: Status post left kecjw-dev-lzst amputation. LABORATORY DATA: Shows elevated alkaline phosphatase and AST. Alkaline phosphatase is more than 500 , AST is 143 and ALT is actually normal. WBC is 8600, hemoglobin 8.9, hematocrit 25, MCV 106 and rebecca telet count 244,000. Sodium 125, potassium 3.6, chloride 90, bicarbonate 20, BUN 22, creatinine 3.10 , glucose 61 and calcium 6.7. IMAGING DATA: Abdominal sonogram done shows what appears to be a fatty liver and also dilation of th e CBD to 1.5 cm. CLINICAL IMPRESSION: Abnormal liver function tests and elevated alkaline phosphatase indicative of c holestasis. Also, abdominal sonogram showed dilated common bile duct to 1.5 cm. The patient has no abdominal pain, no vomiting. Few years ago, she had also dilated common bile duct to 1.2 cm. At leeann t time, her liver function tests were normal. Because of the elevated liver function tests and dilat ed common bile duct, it is possible that the patient could have either a biliary stricture or possibl y retained common duct stone. PLAN: I have spoken to Ms. Joseph about having an ERCP and papillotomy. She was explained the pro cedure in detail. She was informed that she would be put to sleep and the procedure will be accompli shed without cutting her open and using a biliary scope and . The patient says she feels fine a s she sees no reason for the ERCP. I asked her to think about it and let me know, but she insists th at she really does not want to undergo the procedure. If she changes her mind, I will be happy to go to ERCP. I will also talk to Dr. Parham tomorrow maria antonia garnica and see whether he can talk to her.
[2017-12-16 07:26] LABS: ALT (SGPT) Less than 7 U/L (8-55); AST (SGOT) 215 U/L (5-34); Albumin 2.3 g/dL (3.5-5.0); Alkaline Phosphatase 507 U/L (40-150); Anion Gap 10 mmol/L (10-20); BUN (Urea Nitrogen) 18 mg/dL (7.0-18.7); Bilirubin, Total 0.4 mg/dL (0.2-1.2); Calc. Creatinine Clearance 40 mL/min (70-130); Carbon Dioxide 27 mmol/L (22-29); Chloride 98 mmol/L (98-107); Estimated GFR-MDRD 18; Globulin 4.8 g/dL (2.4-3.5); Glucose 159 mg/dL (70-105); Potassium 3.4 mmol/L (3.5-5.1); Protein, Total 7.1 g/dL (6.0-8.3); Sodium 132 mmol/L (136-145)
--- NOTE | 2017-12-16 09:53 | PDOC.PN ---
- Subjective Encounter Start Date: 12/16/17 Encounter Start Time: 08:00 Patient seen and examined. No new complaints. No overnight events - Objective Resuscitation Status: Resuscitation Status FULL:Full Resuscitation MAR Reviewed: Yes Vital Signs & Weight: Vital Signs (12 hours) Temp Pulse Resp BP Pulse Ox 12/16/17 04:00 100.2 F H 74 19 117/63 97 Weight Admit Weight 221 lb Weight 229 lb 14.4 oz I&O: 12/15/17 12/16/17 12/17/17 06:59 06:59 06:59 Intake Total 860 460 Output Total 0 0 Balance 860 460 Result Diagrams: 12/15/17 04:31 12/16/17 04:24 Additional Labs: Accuchecks 12/16/17 12/15/17 12/15/17 05:44 19:41 15:58 POC Glucose 174 H 217 H 137 H Radiology Reviewed by me: Yes EKG Reviewed by me: Yes (nsr) Phys Exam - Physical Examination Constitutional: NAD HEENT: moist MMs, sclera anicteric Neck: no JVD, supple Respiratory: no wheezing, no rales, no rhonchi Cardiovascular: RRR, no significant murmur, no rub Gastrointestinal: soft, non-tender, no distention, positive bowel sounds Musculoskeletal: no edema, pulses present left BKA Neurological: non-focal Lymphatic: no nodes Psychiatric: normal affect, A&O x 3 Skin: no rash, normal turgor Dx/Plan (1) Abnormal LFTs Code(s): R94.5 - ABNORMAL RESULTS OF LIVER FUNCTION STUDIES Status: Acute (2) Acute metabolic encephalopathy due to hypoglycemia Code(s): G93.41 - METABOLIC ENCEPHALOPATHY; E16.2 - HYPOGLYCEMIA, UNSPECIFIED Status: Resolved (3) Hypoglycemia associated with type 2 diabetes mellitus Code(s): E11.649 - TYPE 2 DIABETES MELLITUS WITH HYPOGLYCEMIA WITHOUT COMA Status: Resolved (4) Hyponatremia Code(s): E87.1 - HYPO-OSMOLALITY AND HYPONATREMIA Status: Acute (5) Non-ST elevation myocardial infarction (NSTEMI), type 2 Code(s): I21.A1 - MYOCARDIAL INFARCTION TYPE 2 Status: Acute (6) Anemia of renal disease Code(s): D63.1 - ANEMIA IN CHRONIC KIDNEY DISEASE Status: Chronic (7) Anxiety and depression Code(s): F41.8 - OTHER SPECIFIED ANXIETY DISORDERS Status: Chronic (8) Dyslipidemia Code(s): E78.5 - HYPERLIPIDEMIA, UNSPECIFIED Status: Chronic (9) ESRD (end stage renal disease) on dialysis Code(s): N18.6 - END STAGE RENAL DISEASE; Z99.2 - DEPENDENCE ON RENAL DIALYSIS Status: Chronic (10) History of left below knee amputation Code(s): Z89.512 - ACQUIRED ABSENCE OF LEFT LEG BELOW KNEE Status: Chronic (11) Macrocytic anemia Code(s): D53.9 - NUTRITIONAL ANEMIA, UNSPECIFIED Status: Chronic (12) Obesity (BMI 30-39.9) Code(s): E66.9 - OBESITY, UNSPECIFIED Status: Chronic (13) Secondary hyperparathyroidism of renal origin Code(s): N25.81 - SECONDARY HYPERPARATHYROIDISM OF RENAL ORIGIN Status: Chronic (14) Seizure disorder Code(s): G40.909 - EPILEPSY, UNSP, NOT INTRACTABLE, WITHOUT STATUS EPILEPTICUS Status: Chronic (15) Hypotension Status: Resolved (16) Fatty liver Code(s): K76.0 - FATTY (CHANGE OF) LIVER, NOT ELSEWHERE CLASSIFIED Status: Chronic (17) Dilated bile duct Code(s): K83.8 - OTHER SPECIFIED DISEASES OF BILIARY TRACT Status: Acute (18) Severe tricuspid regurgitation Code(s): I07.1 - RHEUMATIC TRICUSPID INSUFFICIENCY Status: Chronic (19) Pulmonary hypertension Code(s): I27.20 - PULMONARY HYPERTENSION, UNSPECIFIED Status: Chronic - Plan cont current plan of care * today planned for stress test as per cardiology * GI recommendation noted * I also explained to pt about need of ERCP, but so far she is refusing * if continue to refuse for ERCP and stress test negative, will consider discharge to SNU later today * If agree with ERCP, will monitor and consider discharge tomorrow * medication reviewed as below * symptomatic treatment. Review of Systems - Review of Systems ENT: negative: Ear Pain, Ear Discharge, Nose Pain, Nose Discharge, Nose Congestion, Mouth Pain, Mouth Swelling, Throat Pain, Throat Swelling, Other Respiratory: negative: Cough, Dry, Shortness of Breath, Hemoptysis, SOB with Excertion, Pleuritic Pain, Sputum, Wheezing Cardiovascular: negative: chest pain, palpitations, orthopnea, paroxysmal nocturnal dyspnea, edema, light headedness, other Gastrointestinal: negative: Nausea, Vomiting, Abdominal Pain, Diarrhea, Constipation, Melena, Hematochezia, Other Genitourinary: negative: Dysuria, Frequency, Incontinence, Hematuria, Retention , Other Musculoskeletal: negative: Neck Pain, Shoulder Pain, Arm Pain, Back Pain, Hand Pain, Leg Pain, Foot Pain, Other Skin: negative: Rash, Lesions, Remy, Bruising, Other - Medications/Allergies Allergies/Adverse Reactions: Allergies Allergy/AdvReac Type Severity Reaction Status Date / Time No Known Drug Allergies Allergy Verified 11/03/17 11:31 Medications: Current Medications Acetaminophen (Tylenol) 650 mg PO Q4H PRN PRN Reason: Headache/Fever or Mild Pain Last Admin: 12/16/17 08:34 Dose: 650 mg Al Hydroxide/Mg Hydroxide (Maalox) 15 ml PO Q4H PRN PRN Reason: Heartburn or Indigestion Artificial Tears (Tears Renewed 15ml Bottle) 0 drop EA EYE PRN PRN PRN Reason: Dry Eyes Aspirin (Ecotrin) 81 mg PO DAILY [facility] Last Admin: 12/15/17 15:24 Dose: Not Given Atorvastatin Calcium (Lipitor) 10 mg PO HS [facility] Last Admin: 12/15/17 23:25 Dose: Not Given Bisacodyl (Dulcolax) 10 mg NV Q24H PRN PRN Reason: Constipation Dextrose/Water (Dextrose 50%) 25 gm SLOW IVP PRN PRN PRN Reason: Hypoglycemia Docusate Sodium (Colace) 100 mg PO BID [facility] Last Admin: 12/15/17 20:47 Dose: 100 mg Epoetin Robbi (Procrit) 7,500 units SC Q7D [facility] Last Admin: 12/12/17 21:28 Dose: 7,500 units Famotidine (Pepcid) 20 mg PO DAILY [facility] Last Admin: 12/15/17 15:24 Dose: Not Given Ferrous Sulfate (Feosol) 325 mg PO QA-[facility] Last Admin: 12/15/17 15:23 Dose: Not Given Fluticasone Propionate (Flonase Nasal [place]) 0 gm NASAL DAILY [facility] Last Admin: 12/15/17 15:24 Dose: Not Given Glucagon (Glucagon) 1 mg IM PRN PRN PRN Reason: Hypoglycemia Guaifenesin (Robitussin Sf) 200 mg PO Q4H PRN PRN Reason: Cough Heparin Sodium (Porcine) (Heparin) 5,000 units SC BID [facility] Last Admin: 12/15/17 20:48 Dose: Not Given Hydralazine HCl (Apresoline) 10 mg SLOW IVP Q4H PRN PRN Reason: Systolic BP > 180 Dextrose/Water (D5w) 1,000 mls @ 0 mls/hr IV .Q0M PRN; As Directed PRN Reason: Hypoglycemia Insulin Human Lispro (Humalog) 0 units SC .MILD SLIDING SCALE PRN PRN Reason: Mild Correctional Scale Insulin Human Lispro (Humalog) 0 units SC .BEDTIME SLIDING SC PRN PRN Reason: Bedtime Correctional Scale Mineral Oil/White Petrolatum (Eucerin Cream) 0 gm TOP BIDPRN PRN PRN Reason: Dry Skin Nitroglycerin (Nitrostat) 0.4 mg SL Q5MIN PRN PRN Reason: Chest Pain Ondansetron HCl (Zofran) 4 mg IVP Q6H PRN PRN Reason: Nausea/Vomiting Ondansetron HCl (Zofran Odt) 4 mg PO Q6H PRN PRN Reason: Nausea/Vomiting Phenol (Chloraseptic [place] 180 Ml Bot) 0 ml PO PRN PRN PRN Reason: Sore Throat Phenytoin Sodium (Dilantin Er) 300 mg PO [facility] Last Admin: 12/15/17 20:47 Dose: 300 mg Quetiapine Fumarate (Seroquel) 25 mg PO [facility] Last Admin: 12/15/17 20:48 Dose: 25 mg Sodium Chloride ([place]uster Nasal [place] 0.65%) 0 ml EA NARE QIDPRN PRN PRN Reason: Nasal Congestion Sodium Chloride (Flush - Normal Saline) 10 ml IVF Q12HR [facility] Last Admin: 12/15/17 20:49 Dose: 10 ml Sodium Chloride (Flush - Normal Saline) 10 ml IVF PRN PRN PRN Reason: Saline Flush Vitamin B Complex/Vit C/Folic Acid (Nephro-Juany Tablet) 1 tab PO DAILY [facility] Last Admin: 12/15/17 15:24 Dose: Not Given
--- NOTE | 2017-12-16 10:21 | DIS ---
DATE OF ADMISSION: 12/12/2017 DATE OF DISCHARGE: 12/16/2017 PRIMARY CARE PHYSICIAN: Guzman Vilchis M.D. at [facility]. DISCHARGE DISPOSITION: [facility]. PRIMARY DISCHARGE DIAGNOSES: 1. Acute metabolic encephalopathy due to hypoglycemia. 2. Hypoglycemia associated with diabetes type 2. 3. Hypotension due to antihypertensive medication. 4. Elevated troponin due to demand ischemia. 5. Abnormal liver function tests due to dilated bile duct. 6. Hyponatremia. 7. Non-ST elevation myocardial infarction type 2 due to demand ischemia. SECONDARY DISCHARGE DIAGNOSES: Severe tricuspid regurgitation, seizure disorder , secondary hyperparathyroidism of renal origin, pulmonary hypertension, obesity with body mass index of 38, macrocytic anemia, left below knee amputation, fatty liver, end stage renal disease on hemodialysis, dyslipidemia, anxiety and depression, anemia of renal disease, and physical deconditioning. PRIMARY PROCEDURE/OPERATION: None other than maintenance hemodialysis. RADIOLOGICAL INVESTIGATION: CT brain on admission showed no acute intracranial process. Chest x-ray on admission showed cardiomegaly, diminished lung volumes , atelectasis of right lung. Echocardiography showed normal EF, pulmonary hypertension, moderate tricuspid regurgitation. Abdominal ultrasound showed dilated common bile duct. SIGNIFICANT LABORATORY DATA: WBC 7.0, hemoglobin 8.8, platelets 182. INR 1.3. Sodium 132, potassium 3.4, BUN 18, creatinine 2.88, calcium 8.0, AST 215, ALT less than 7, alkaline phosphatase 507, albumin 2.3, and LDL 42. Serum drug screen negative. Hepatitis profile negative. Blood culture negative. DISCHARGE MEDICATIONS: Tylenol #3 one tablet q.6 hourly p.r.n., amlodipine 2.5 mg p.o. daily, aspirin 81 mg p.o. daily, PhosLo 667 mg 3 tablets p.o. t.i.d., Celexa 20 mg p.o. daily, clonidine 0.1 mg p.o. b.i.d. p.r.n., Colace 100 mg p.o. b.i.d., Pepcid 20 mg p.o. daily, ferrous sulfate 325 mg p.o. daily, Flonase nasal spray daily, Nephro-Juany 1 tablet p.o. daily, Humalog insulin b.i.d. p.r.n., Lidoderm patch daily, metoprolol 25 mg p.o. b.i.d., Zofran 4 mg q.6 hourly p.r.n., Dilantin 300 mg p.o. at bedtime, Seroquel 25 mg p.o. at bedtime, Zocor 20 mg p.o. at bedtime. CONTRAINDICATIONS: None. CODE STATUS: FULL CODE. INPATIENT CONSULTANTS: Dr. Laboy was following for maintenance hemodialysis. Dr. Mueller was following because patient was admitted in [facility]. Dr. Ahumada was consulted for elevated troponin. Dr. Grossman was consulted for abnormal LFT. TEST RESULTS PENDING ON DISCHARGE: Stress test. DISCHARGE PLAN: Post hospital, patient will be discharged to [facility]. HOSPITAL COURSE: A 47-year-old female who lives at long-term. She has underlying diabetes and she is on Humalog insulin as per sliding scale. The patient reported retrospectively that she took pain medication and after that she did not eat her dinner and next day morning, patient was unresponsive. She was found with altered mental status. She was having hypoglycemia. She was having acute metabolic encephalopathy from hypoglycemia. She was also hypotensive. She was on bunch of blood pressure medication at long-term. During this admission, we treated her with dextrose with NS at lower rate and we discontinued all antihypertensive medications. She had elevated troponin and that is why Cardiology was consulted. The patient was in [facility] that is why Pulmonology saw this patient. Next day, this patient's condition significantly improved back to normal and provided history. Her cultures remain negative and infection etiology ruled out. We noted that she had abnormal LFTs that is why we did abdominal ultrasound, which showed fatty liver and dilated bile duct and that is why we consulted Dr. Grossman for further evaluation. We discussed with the patient and Dr. Grossman also discussed with the patient of option of doing ERCP, but patient refuses to go for ERCP. Dr. Ahumada ordered stress test that will be done today. If stress test is negative and if this patient does not want to go for an ERCP, then this patient medically can be discharged back to long-term later on today. Otherwise, the patient is doing very well. She is completely stable. She had only one episode of low grade fever today, but she does not have clinically any other source of infection. I told this patient that if we do not go for ERCP, then she may come back with cholangitis, but she will decide later on today. The patient is seen and examined at bedside today. PHYSICAL EXAMINATION: VITAL SIGNS: Currently temperature 98.6, pulse 78, respiratory rate 20, saturation 95% on room air, blood pressure 117/63, weight 229 pounds. GENERAL: The patient is alert, awake, no acute distress. She is legally blind on left eye. NECK: Supple, no JVD, no thyromegaly. LUNGS: Clear to auscultation without any rhonchi or rales. CARDIAC: S1, S2 regular. Soft systolic murmur present parasternally. No gallop, no rub. ABDOMEN: Soft, bowel sounds present, no Luther sign, no tenderness, no peritoneal sign. EXTREMITY: Left vkljk-pwh-[id number] amputation and right lower extremity within normal limits. NEUROLOGIC: Nonfocal examination. Overall, this patient is medically stable for discharge later on today if she does not want to go for ERCP and stress test negative. stress test is normal and pt still refuses for ERCP Total time spent on discharge day more than 30 minutes MTDD
[2017-12-16] MEDS: Heparin 5,000 UNITS/ML VIAL SC SCH (11:13)
[2017-12-16] MEDS: Folic Acid/Vit B Comp W-C PO SCH (11:14)
[2017-12-16] MEDS: Fluticasone Propionate Nasal Spray 16 gm Bottle NASAL SCH (11:14)
[2017-12-16] MEDS: Aspirin 81 mg Enteric Coated Tablet PO SCH (11:15)
[2017-12-16] MEDS: Famotidine 20 MG TAB PO SCH (11:15)
[2017-12-16] MEDS: Docusate 100 MG CAP PO SCH (11:15)
[2017-12-16] MEDS: Ferrous Sulfate 325 MG TAB PO SCH (11:15)
--- NOTE | 2017-12-16 11:58 | NM ---
CARDIAC SPECT: CLINICAL HISTORY: 47-year-old female with chest pain, hypertension, syncope, and bradycardia. TECHNIQUE: A stress-only myocardial perfusion scan was performed following the intravenous administration of 33 mCi technetium-99m sestamibi. Pharmacologic stress with Adenosine was monitored and interpreted by hCetan Hilton NP. FINDINGS: Homogeneous tracer distribution is seen in the myocardial segments on the post stress images. GATED SPECT LVEF: 67%. WALL MOTION EXAM: Normal. IMPRESSION: Normal post stress myocardial perfusion scan. POS: ОЛЕГ
[2017-12-16 13:24] VITALS: BMI 38.2
--- NOTE | 2017-12-16 15:44 | PRG ---
DATE OF SERVICE: 12/16/2017 SUBJECTIVE: Ms. Joseph is doing well today. No chest pain or pressure. PHYSICAL EXAMINATION: VITAL SIGNS: Blood pressure is variable; one is listed 150 systolic, one as 97. Pulse 70. LUNGS: Clear. CARDIAC: Normal S1, normal S2. Stress test was normal. ASSESSMENT: 1. End-stage renal disease. 2. Episode of hypotension probably related to medications. 3. Normal stress test. 4. Cardiac catheterization done 03/2013 showed no significant coronary artery disease. PLAN: 1. Okay to go home. 2. The patient is to stay off of beta blockers. 3. She should come back and see us in a couple of months. Ideally she should be on a statin. She i s not on one at this time because her liver function tests are elevated.
[2017-12-16] MEDS ORDERED: ADENOSINE 60 MG/20 ML VIAL ONE (17:23)
[2017-12-16 17:59] VITALS: BP 154/78; TEMP 98.4
--- NOTE | 2018-01-31 13:36 | STRESS ---
Acquisition Time: 2017-12-16 09:08:51 Total Exercise Time: 00:04:00 Test Indications: CHEST PAIN Medications: Protocol: ADENOSINE Max HR: 075 BPM 43% of Pred: 174 BPM Max BP: 144/072 mmHG Max Work Load: 1.0 METS RESTING ECG: NORMAL SINUS RHYTHM AT 72 BPM WITH LEFT VENTRICULAR HYPERTROPHY; NON-SPECIFIC ST SEGMENT AND T-WAVE CHANGES SYMPTOMS: NONE NORMAL BP RESPONSE ECTOPY: NONE ECG STRESS: NO SIGNIFICANT CHANGES INTERPRETATION: INDETERMINATE ECG/AWAIT NUCLEAR IMAGES FOR DEFINITIVE DIAGNOSIS Confirmed by RAMA ORANTES ([id number]) on 01/31/2018 1:35:54 PM Referred By: Confirmed By:RAMA ORANTES
== END 2017-12-16 17:56 | DRG 637 ==
LOC: ERS 08:30 → IMCU/EMU 10:42 → 2NO 12-14 14:56
PROVIDERS: ADMIT Internal Medicine; ATTEND Internal Medicine
PROC: 5A1D70Z Performance of Urinary Filtration, Intermittent, Less than 6 Hours Per Day (ICD-10-PCS; principal; 2017-12-13)
PROC: 5A1D70Z Performance of Urinary Filtration, Intermittent, Less than 6 Hours Per Day (ICD-10-PCS; 2017-12-15)
DX: E11.649 Type 2 diabetes mellitus with hypoglycemia without coma (principal); L89.323 Pressure ulcer of left buttock, stage 3; I21.A1 Myocardial infarction type 2; G92 Toxic encephalopathy; K83.3 Fistula of bile duct; K31.84 Gastroparesis; I95.9 Hypotension, unspecified; E11.22 Type 2 diabetes mellitus with diabetic chronic kidney disease; E11.42 Type 2 diabetes mellitus with diabetic polyneuropathy; I12.0 Hypertensive chronic kidney disease with stage 5 chronic kidney disease or end stage renal disease; E87.1 Hypo-osmolality and hyponatremia; E11.43 Type 2 diabetes mellitus with diabetic autonomic (poly)neuropathy; E87.8 Other disorders of electrolyte and fluid balance, not elsewhere classified; I07.1 Rheumatic tricuspid insufficiency; N18.6 End stage renal disease; Z79.01 Long term (current) use of anticoagulants; Z99.2 Dependence on renal dialysis; E78.5 Hyperlipidemia, unspecified; G40.909 Epilepsy, unspecified, not intractable, without status epilepticus; H54.40 Blindness, one eye, unspecified eye; Z89.512 Acquired absence of left leg below knee; K21.9 Gastro-esophageal reflux disease without esophagitis; G89.29 Other chronic pain; Z89.421 Acquired absence of other right toe(s); Z89.021 Acquired absence of right finger(s); F41.9 Anxiety disorder, unspecified; F32.9 Major depressive disorder, single episode, unspecified; F31.9 Bipolar disorder, unspecified; E66.9 Obesity, unspecified; Z68.38 Body mass index [BMI] 38.0-38.9, adult; N25.81 Secondary hyperparathyroidism of renal origin; D63.1 Anemia in chronic kidney disease; T46.5X5A Adverse effect of other antihypertensive drugs, initial encounter; I27.20 Pulmonary hypertension, unspecified; Z79.4 Long term (current) use of insulin; K76.0 Fatty (change of) liver, not elsewhere classified; K83.8 Other specified diseases of biliary tract
CPT/HCPCS: 36415; 36416; 70450; 71045; 76705; 78452; 80053; 80061; 80069; 80074; 80307; 82553; 82728; 83540; 83550; 84484; 85025; 85610; 85730; 87040; 87340; 90935; 93005; 93017; 93306; 96360; 96361; A4216; A9500; G0257; G8996-GN-CJ; G8997-GN-CI; J0153; J1644; Q4081

== ENCOUNTER 2018-01-24 09:50 | Inpatient (IN) | payer MEDICARE ==
[2018-01-24 10:39] LABS: #Basophils 0.1 thou/uL (0.0-0.2); #Lymphocytes 2.4 thou/uL (1.20-3.40); #Monocytes 0.1 thou/uL (0.11-0.59); #Neutrophils 5.5 thou/uL (1.40-6.50); %Basophils 1.2 % (0.0-1.0); %Eosinophils 0.5 % (0.0-10.0); %Lymphocytes 29.5 % (21.0-51.0); %Monocytes 1.2 % (0.0-10.0); %Neutrophils 67.6 % (42.0-75.0); Hemoglobin 8.8 g/dL (12.0-16.0); Mean Corpuscular HGB CONC 31.8 g/dL (32.0-36.0); Mean Corpuscular Hemoglobin 30.1 pg (27.0-31.0); Mean Corpuscular Volume 94.7 fl (81.0-99.0); Mean Platelet Volume 10.5 fL (7.4-10.4); Platelet Count 137 thou/uL (130-400); Red Blood Cell (RBC) Count 2.92 mill/uL (4.20-5.40); White Blood Cell (WBC) Count 8.1 thou/uL (4.8-10.8)
[2018-01-24 10:46] LABS: INR-International Normal Ratio 1.4; PTT 45.8 SEC (22.9-36.1); Prothrombin Time 17.7 SEC (12.0-14.7)
[2018-01-24 11:27] LABS: ALT (SGPT) 15 U/L (8-55); AST (SGOT) 59 U/L (5-34); Albumin 2.8 g/dL (3.5-5.0); Alkaline Phosphatase 307 U/L (40-150); Anion Gap 20 mmol/L (10-20); BUN (Urea Nitrogen) 11 mg/dL (7.0-18.7); Bilirubin, Total 1.7 mg/dL (0.2-1.2); Calc. Creatinine Clearance 0 mL/min (70-130); Calcium 8.8 mg/dL (7.8-10.44); Carbon Dioxide 22 mmol/L (22-29); Chloride 88 mmol/L (98-107); Estimated GFR-MDRD 16; Globulin 6.6 g/dL (2.4-3.5); Glucose 107 mg/dL (70-105); Potassium 4.6 mmol/L (3.5-5.1); Protein, Total 9.4 g/dL (6.0-8.3); Sodium 125 mmol/L (136-145)
[2018-01-24] MEDS ORDERED: Pantoprazole 80 MG in Sodium Chloride 0.9% 100 ML IVP SCH (11:30)
[2018-01-24] MEDS ORDERED: cefTRIAXone\\ROCEPHIN 1 GM, Syringe 0.4 ML in Sterile Water 9.6 ML SLOW IVP SCH (11:30)
[2018-01-24] MEDS ORDERED: Octreotide Acetate 1,250 MCG in Sodium Chloride 0.9% 250 ML 250 ML IVPB SCH ×2 (11:30→18:30)
[2018-01-24] MEDS ORDERED: Lidocaine 1% PF 5 ML VIAL ONE (11:47)
[2018-01-24] MEDS ORDERED: Succinylcholine Chloride 20 MG/ML 10 ml SYRINGE FS ONE (11:47)
[2018-01-24] MEDS ORDERED: PROPOFOL 200 MG/20 ML VIAL ONE (11:47)
[2018-01-24] MEDS ORDERED: Acetaminophen 650 MG Suppository PR PRN (12:16)
[2018-01-24] MEDS ORDERED: Bisacodyl 5 MG TAB PO PRN (12:16)
[2018-01-24] MEDS ORDERED: cloNIDine 0.1 MG TAB PO PRN (17:11)
[2018-01-24] MEDS ORDERED: HumaLOG 300 UNITS/3 ML VIAL SC PRN (17:12)
[2018-01-24] MEDS ORDERED: Dextrose 5% in Water 1,000 ML IV PRN (17:12)
--- NOTE | 2018-01-24 17:34 | HP ---
PRIMARY CARE PHYSICIAN: Guzman Vilchis M.D. CHIEF COMPLAINT: Vomiting blood. HISTORY OF PRESENT ILLNESS: Ms. Joseph is a pleasant 47-year-old lady who was seen at [facility] on 01/24/2018. She reports that she developed nausea and vomiting yesterday. She reports vomiting multiple times. Today, she had at least four episodes of vomiting with bright red blood. She therefore came to the e mergency room. She reports feeling weak. She denies any chest pain. She denies any lightheadedness. She reports t hat she is not nauseous at this time. She denies any abdominal pain. She denies any fevers or chill s. REVIEW OF SYSTEMS: The following complete review of systems was negative, unless otherwise mentioned in the HPI or below: Constitutional: Weight loss or gain, ability to conduct usual activities. Skin: Rash, itching. Eyes: Double vision, pain. ENT/Mouth: Nose bleeding, neck stiffness, pain, tenderness. Cardiovascular: Palpitations, dyspnea on exertion, orthopnea. Respiratory: Shortness of breath, wheezing, cough, hemoptysis, fever or night sweats. Gastrointestinal: Poor appetite, abdominal pain, heartburn, nausea, vomiting, constipation, or diarr hea. Genitourinary: Urgency, frequency, dysuria, nocturia. Musculoskeletal: Pain, swelling. Neurologic/Psychiatric: Anxiety, depression. Allergy/Immunologic: Skin rash, bleeding tendency. PAST MEDICAL HISTORY: Significant for end-stage renal disease on hemodialysis on Tuesday, , and Tuesday, diabetes mellitus type 2, hypertension, dyslipidemia, gastroparesis, seizure disorder, history of symptomatic bradycardia needing pacemaker placement, pacemaker wire infection with vegetat ion, cardiac arrest secondary to hyperkalemia, chronic left eye blindness, peripheral vascular diseas e, status post left below knee amputation, gastroesophageal reflux disease and chronic pain disorder. PAST SURGICAL HISTORY: Significant for left below knee amputation, left eye surgery, right second an d third toe amputation, right second finger amputation, bilateral tubal ligation, open cholecystectom y, dialysis catheter placement and surgery for clotted dialysis access. PSYCHIATRIC HISTORY: Anxiety, depression, bipolar disorder. ALLERGIES: No known drug allergies. SOCIAL HISTORY: The patient denies tobacco use, alcohol use or recreational drug use. CURRENT MEDICATIONS: Metoprolol tartrate 50 mg daily, phenytoin 100 mg 3 times a day, citalopram 20 mg daily, clonidine 0.1 mg 2 times a day, Zofran p.r.n., benzonatate 100 mg 3 times a day, aspirin 81 mg daily, vitamin D3 2000 units daily, Phoslyra 20 mL 3 times a day, and Bactrim DS 1 tablet daily. FAMILY HISTORY: Significant for end-stage renal disease among several family members. PHYSICAL EXAMINATION: GENERAL: On examination, Ms. Meléndez is awake and alert, not in acute distress. VITAL SIGNS: Blood pressure is 130/93, pulse is 58, she is breathing at rate of 15 and saturating 98 % on room air. She is afebrile. EYES: No conjunctival pallor, no scleral icterus, left corneal opacity. ENT: Moist mucosal membranes, no oropharyngeal erythema or exudates. NECK: Supple, nontender, normal range of movement. Trachea is midline. RESPIRATORY: Accessory muscles of breathing are not active. Chest wall movements are symmetric bila terally. LUNGS: Clear to auscultation without wheeze, rhonchi or crepitations. CARDIOVASCULAR: S1 and S2 are heard, regular. LUNGS: Peripheral pulses palpable. No carotid bruits, no pericardial rub. ABDOMEN: Soft, nontender, bowel sounds are heard, no hepatomegaly, no splenomegaly. MUSCULOSKELETAL: Status post left below knee amputation. Power is 5/5 in all four extremities. She has left upper extremity dialysis access. She is also missing toes on the right foot. SKIN: No rashes or subcutaneous nodules. LYMPHATIC: No cervical lymphadenopathy. PSYCHIATRIC: Normal mood, normal affect, patient is oriented to person, place and time. IMAGING DATA AND LABORATORY DATA: Ms. Joseph's labs and investigations were reviewed. She has nor mal white count, normocytic anemia with hemoglobin 8.8, her baseline appears to be 8.8 in 11/2017, no rmal platelet count, INR 1.4, decreased sodium of 125, normal potassium, elevated creatinine of 3.20, normal BUN, elevated total bilirubin of 1.7, previously normal at 0.4 in 11/2017, elevated AST of 59 , 215 in 11/2017, normal ALT, elevated alkaline phosphatase of 307, previous known value 507 in 12/13 18 and decreased albumin of 2.8. ASSESSMENT AND PLAN: Ms. Joseph is a pleasant 47-year-old lady who was seen at [facility] on 01/24/2018. Her problem list includes: 1. Upper gastrointestinal bleed: Ms. Joseph is presenting with hematemesis. Etiology is unclear at this time. She has been started on PPI drip as well as octreotide drip by emergency room sergey kennedy, which I will continue. ER physician has discussed her case with rodbuster vice president for instruction. She is currently hemodynamically stable, hemoglobin is stable as well. We will recheck her hemoglobin le magdalena. 2. Abnormal liver function tests: Except for bilirubin, her LFTs have been abnormal in the past as well. There is no abdominal tenderness at this time. We will recheck her LFTs. 3. End-stage renal disease on hemodialysis: I discussed her case with her industrial gas servicer. Will be co nsulted for maintenance hemodialysis. 4. Hyponatremia: We will recheck her sodium level in the morning after dialysis. 5. Diabetes mellitus: Continue Accu-Cheks, insulin sliding scale. 6. Hypertension: Monitor vital signs, titrate antihypertensives as needed. 7. Seizure disorder: Continue phenytoin. Many thanks for allowing me to participate in your patient's care. Please feel free to contact me wi th any questions or concerns. LEVEL OF RISK: Moderate. LEVEL OF COMPLEXITY: Moderate.
[2018-01-24] MEDS ORDERED: Promethazine HCl 25 MG/ML VIAL SLOW IVP PRN (19:04)
[2018-01-24] MEDS ORDERED: Ondansetron HCl/PF 4 MG/2 ML Vial IVP PRN (19:04)
[2018-01-24] MEDS ORDERED: Promethazine HCl 25 MG/ML VIAL IM PRN (19:04)
[2018-01-24] MEDS: Metoprolol Tartrate 25 MG TAB PO SCH (21:23)
[2018-01-24] MEDS: Atorvastatin Calcium 10 MG TAB PO SCH (21:23)
[2018-01-24] MEDS: Pantoprazole 80 MG, Admixture Fee 1 EACH in Sodium Chloride 0.9% 100 ML IVP SCH (21:23)
[2018-01-24] MEDS: Epoetin (ESRD) 10,000 UNITS/ML VIAL SC SCH (21:32)
--- NOTE | 2018-01-25 00:02 | CON ---
DATE OF CONSULTATION: 01/24/2018 CHIEF COMPLAINT: Vomiting. HISTORY OF PRESENT ILLNESS: Ms. Joseph is a 47-year-old woman who presented to the emergency room with vomiting, dark material. She states she vomited multiple times last night, but this morning the vomitus became more cracked coffee ground appearing. She vomited several times today as well. She has had no abdominal pain with this, but she did develop constipation and had passed a hard stool 2 d ays ago, which she had to help with digital assistance. She had no bowel movement yesterday or today . Her last dialysis was on Tuesday. She underwent dialysis today from the emergency room. She has had no recent weight changes. She states that she has been doing well up until the vomiting started last night. She was admitted to the hospital back in November with an episode of hypotension and po ssible hypoglycemia. She was admitted in October with sepsis with Staph aureus related to infection of her pacemaker. This was removed in [place] after that. She has not since had a pacemaker replaced . PAST MEDICAL HISTORY: End-stage renal disease on hemodialysis, hypertension, diabetes mellitus type 2, diabetic gastroparesis, dyslipidemia, seizure disorder, peripheral vascular disease, gastroesophag eal reflux disease. PAST SURGICAL HISTORY: Left [id number] amputation, left eye surgery, finger amputation, tubal li gation, open cholecystectomy, dialysis access pacemaker placement and subsequent recent pacemaker rem oval for infection. FAMILY HISTORY: Negative for GI malignancies. SOCIAL HISTORY: No alcohol, tobacco, or drugs. ALLERGIES: No known drug allergies. MEDICATIONS: Prior to admission, famotidine, ferrous sulfate, amlodipine, metoprolol, simvastatin, c italopram, quetiapine, calcium acetate, phenytoin, insulin, lidocaine patch, fluticasone nasal spray, and clonidine. REVIEW OF SYSTEMS: Negative x10 systems reviewed except as stated in history of present illness. PHYSICAL EXAMINATION: VITAL SIGNS: Temperature 97.0, pulse 55, blood pressure 135/65. GENERAL: She is in no acute distress. She is awake and alert. LUNGS: Clear to auscultation bilaterally. HEART: Bradycardic. S1, S2. ABDOMEN: Soft, nontender, nondistended. Bowel sounds are present. EXTREMITIES: She has a left [id number] amputation. No right lower extremity edema. LABORATORY DATA: White blood cell count 8.1, hemoglobin 8.8, platelets 137. INR 1.4, creatinine 3.2 . Sodium was 125 prior to dialysis, bilirubin 1.7, AST 59, ALT 15, alkaline phosphatase 307, albumin 2.8. IMPRESSION: 1. Hematemesis. She vomited coffee ground material. After multiple nonbloody emesis episodes last night. She could have a Bee-Abel tear. Her hemoglobin is at baseline at 8.8. She does not stalin ear to have significant large volume bleeding. We will plan EGD to evaluate this further. 2. Abnormal liver function tests. She has cholestatic liver tests and previous imaging with ultraso und shows a common bile duct dilated to 1.5 cm. She has had a prior cholecystectomy. The cause of t he cholestasis is not defined at this point. In light of the biliary dilation, we can plan MRCP to f foreign evaluate this. She has had her pacemaker replaced are removed and not replaced therefore, she does not believe she has metal in her body, so she should be able to go through with MRCP at this po int. 3. History of diabetic gastroparesis. She is no longer on Reglan at this point. She did have EGD b y Dr. Knowles in 2012, which showed erosive esophagitis and retained gastric contents. RECOMMENDATIONS: 1. She is on proton pump inhibitor IV. 2. We will follow through with upper endoscopy. 3. Plan MRCP to evaluate the cholestasis. She was previously offered ERCP by Dr. Knowles in November, which she did not wish to follow through with.
--- NOTE | 2018-01-25 00:44 | OP ---
DATE OF PROCEDURE: 01/24/2018 PROCEDURE: Esophagogastroduodenoscopy with biopsy. PREOPERATIVE DIAGNOSES: Nausea and vomiting and hematemesis OPERATIVE NOTE: Informed consent was obtained from the patient. She was sedated with general anesth esia. The bite block was placed and the endoscope was advanced easily to the second portion of the d uodenum and retroflexion was performed in the stomach. The esophagus had grade C erosive esophagitis in the distal esophagus. These were shallow ulcerations overall. There were at least 4 deeper ulce rations in the gastric body along the greater curvature and at the incisura. These measured from 1 c m to 3 cm in diameter. Biopsies were obtained. There was retained food and liquid in the fundus and in the antrum of the stomach that obscured views. The pylorus and first and second portions of the duodenum were normal. There was no active bleeding. IMPRESSION: 1. At least 4 ulcers measuring 1-3 cm along the greater curvature of the stomach and at the incisura . Biopsies were obtained. Evaluate for ischemic gastritis. 2. Grade C erosive esophagitis. 3. Retained gastric contents in the fundus and antrum. 4. No active bleeding at the time of this procedure. RECOMMENDATIONS: 1. Await histopathology. 2. Continue the IV drip overnight and changed to twice daily tomorrow. 3. Advance diet in the morning if she tolerates.
[2018-01-25] MEDS: Acetaminophen 325 MG TAB PO PRN ×3 (01:10→20:40)
[2018-01-25 05:59] LABS: #Eosinphils 0.1 thou/uL (0.0-0.7); #Lymphocytes 1.7 thou/uL (1.20-3.40); #Monocytes 0.1 thou/uL (0.11-0.59); #Neutrophils 5.1 thou/uL (1.40-6.50); %Basophils 0.1 % (0.0-1.0); %Lymphocytes 24.7 % (21.0-51.0); %Monocytes 1.6 % (0.0-10.0); %Neutrophils 72.7 % (42.0-75.0); Hemoglobin 8.3 g/dL (12.0-16.0); Mean Corpuscular HGB CONC 31.3 g/dL (32.0-36.0); Mean Corpuscular Hemoglobin 29.9 pg (27.0-31.0); Mean Corpuscular Volume 95.6 fl (81.0-99.0); Mean Platelet Volume 9.6 fL (7.4-10.4); Platelet Count 123 thou/uL (130-400); RBC Distribution Width 17.9 % (11.5-14.5); Red Blood Cell (RBC) Count 2.78 mill/uL (4.20-5.40)
[2018-01-25 06:16] LABS: ALT (SGPT) 12 U/L (8-55); AST (SGOT) 42 U/L (5-34); Albumin 2.1 g/dL (3.5-5.0); Alkaline Phosphatase 243 U/L (40-150); Anion Gap 12 mmol/L (10-20); BUN (Urea Nitrogen) 8 mg/dL (7.0-18.7); Calc. Creatinine Clearance 36 mL/min (70-130); Calcium 8.1 mg/dL (7.8-10.44); Carbon Dioxide 25 mmol/L (22-29); Chloride 95 mmol/L (98-107); Estimated GFR-MDRD 21; Glucose 80 mg/dL (70-105); Potassium 3.3 mmol/L (3.5-5.1); Protein, Total 7.1 g/dL (6.0-8.3); Sodium 129 mmol/L (136-145)
[2018-01-25] MEDS: Pantoprazole 80 MG, Admixture Fee 1 EACH in Sodium Chloride 0.9% 100 ML IVP SCH ×2 (06:38→19:23)
[2018-01-25] MEDS: Metoprolol Tartrate 25 MG TAB PO SCH ×3 (09:08→20:41)
[2018-01-25] MEDS: Citalopram 20 MG TAB PO SCH (09:08)
--- NOTE | 2018-01-25 09:14 | PRG ---
DATE OF SERVICE: 01/25/2018 SUBJECTIVE: Ms. Joseph is a 47-year-old female with ESRD and admitted for upper GI bleed. She underwent hemodialysis without heparin yesterday, but treatment was shortened per her request. She also underwent an upper GI endoscopy with finding of what this for ulcers along the greater curvature of the stoma. Biopsies were obtained. Grade C erosive esophagitis was also noted. No active bleeding was noted at that time. This morning, she is feeling better, denies any chest pain or shortness of breath. PHYSICAL EXAMINATION: VITAL SIGNS: Blood pressure is 110/53, heart rate 54, respiratory rate 19, temperature 97.5, pulse ox 100%. GENERAL: Noted to be awake, alert, supine, comfortable. SKIN: Adequate turgor. HEENT: Pinkish conjunctivae. Anicteric sclerae. NECK: No neck mass, no carotid bruits, no JVD. Positive for left eye blindness. LUNGS: Clear breath sounds. No wheezing, no crackles. HEART: Normal sinus rhythm. No murmurs, no gallops, no rubs. ABDOMEN: Globular, soft, nontender, no masses. EXTREMITIES: Right leg, no edema. Left leg, status post left BKA. MEDICATIONS: Medications of 01/25/2018 reviewed. LABORATORY DATA: Laboratories of 01/25/2018; white count 7, hemoglobin 8.3, hematocrit 26.6 and platelet count 123,000. ASSESSMENT AND PLAN: 1. End-stage renal disease, stable. No indication for any emergent hemodialysis. Continue Tuesday, , and Tuesday dialysis regimen without heparin. Review of last KT/V suggests she is adequately dialyzed with current dialysis regimen. 2. Upper gastrointestinal bleed - stable, continuing Protonix. Continue weekly Epogen with this patient at 10,000 units subcutaneously every week. Agree with current management. 3. Chronic Anemia - On weekly Epogent MTDD
--- NOTE | 2018-01-25 10:52 | CON ---
DATE OF CONSULTATION: 01/24/2018 HISTORY OF PRESENT ILLNESS: Ms. Joseph is a 47-year-old female with ESRD and admitted for hematemesis. Concern was the patient may be having an active upper GI bleed. A planned upper GI en doscopy has been scheduled this afternoon. Currently, I am dialyzing the patient. She declined to d o the full treatment. For that reason, we will do a 2-hour hemodialysis using the heparin at the bed side, supervising her dialysis. REVIEW OF SYSTEMS: Positive for hematemesis. Positive for nausea and vomiting, no diarrhea or const ipation, no chest pain or shortness of breath, no syncopal episodes. Decreased visual acuity. No pr oductive cough, no fever or chills. Occasional joint pains. No dysuria, no urinary frequency. Appe tite decreased. No abdominal pain. HOME MEDICATIONS: This was based on the last discharge summary. Patient is on the following medicin e; Tylenol No. 3 one tab q.6 hours p.r.n., amlodipine 2.5 mg daily, aspirin 81 mg tab once a day, Jose sLo 667 mg 3 tabs t.i.d. with meals, Celexa 20 mg daily, clonidine 0.1 mg p.o. b.i.d., Colace 100 mg p.o. b.i.d., Nephro-Juany 1 tab daily, Pepcid 20 daily, ferrous sulfate 325 mg once a day, Humalog ins ulin b.i.d. - p.r.n., metoprolol 25 mg p.o. b.i.d., Seroquel 25 mg at bedtime, Dilantin 300 mg at bed time, Zofran 4 mg q.6 hours p.r.n., Zocor 20 mg tab at bedtime. PAST MEDICAL HISTORY: ESRD secondary to diabetic nephropathy on maintenance hemodialysis Tuesday, , and Tuesday; type 2 diabetes mellitus; status post hypertension; history of demand ischemia; chronically abnormal liver function tests; history of hyponatremia; coronary artery disease. Patient also has history of decrease of hearing loss, chronic left eye blindness, status post cardiac arrest secondary to hyperkalemia, status post Staph septicemia, history of symptomatic bradycardia r equiring pacemaker placement, history of vegetation and previous cardiac lids, peripheral vascular di sease, depression. PAST SURGICAL HISTORY: Status post left BKA, status post AV fistula placement, status post second fin bipin amputation, status post left eye surgery, status post open cholecystectomy, status post cuffed di alysis catheter placement, status post bilateral tubal ligation, status post right toe amputation, st atus post left BKA. SOCIAL HISTORY: The patient previously was in a longterm, but is now living at home. Several ch ildren. Currently, no smoking or alcohol intake, sedentary lifestyle. She is . No IV drug abuse. Status post blood transfusion. FAMILY HISTORY: Positive family history of ESRD. ALLERGIES: None. TRAUMA: None. IMMUNIZATIONS: Up to date. HOSPITALIZATIONS: Please see past medical history. PHYSICAL EXAMINATION: VITAL SIGNS: Blood pressure is noted at 144/80 with a heart rate of 60. GENERAL: Noted to be awake, alert, supine, comfortable, not in overt distress. SKIN: Adequate turgor. HEENT: Slightly pale conjunctivae, anicteric sclerae. NECK: No neck mass, no carotid bruits, no JVD. Positive for left eye blindness. LUNGS: Clear breath sounds, no wheezing, no crackles. HEART: Normal sinus rhythm. Grade 2/6 systolic murmur, no gallops, no rubs. ABDOMEN: Globular, soft, nontender, no masses. EXTREMITIES: No edema, status post left leg amputation. NEUROLOGIC: Awake, oriented to 3 spheres. Moving all extremities. No tremors, no asterixis. LABORATORY: Of 01/24/2018. White count 8.1, hemoglobin 8.8. Sodium 125, potassium 4.6, chloride 88 , carbon dioxide 22, BUN 11, creatinine 3.2, glucose 107, calcium 8.8. ASSESSMENT AND PLAN: 1. Upper gastrointestinal bleed - for planned endoscopy, p.r.n. blood transfusion. We will resume E pogen with this patient. 2. Chronic anemia. Epogen 10,000 units subcu every week. 3. End-stage renal disease, stable. The patient received a 2-hour hemodialysis today using no hepar in. About 700 mL fluid was removed. The patient requested to shorten her treatment. My last review of her Kt/V suggests she is adequately dialyzed with the current dialysis regimen. We will check ba se met and CBC in a.m. Resume Epogen 10,000 units subcu every week.
[2018-01-25] MEDS ORDERED: Ibuprofen 200 MG TAB PO ONE (11:09)
[2018-01-25] MEDS: Ondansetron HCl/PF 4 MG/2 ML Vial IVP PRN ×2 (12:48→20:40)
--- NOTE | 2018-01-25 14:12 | PRG ---
DATE OF SERVICE: 01/25/2018 SUBJECTIVE: The patient reports nausea. She has had some vomiting, but she denies any blood in her emesis. She had a bowel movement today that was formed. She still complains of abdominal pain. OBJECTIVE: VITAL SIGNS: Temperature 97.5, pulse 54, respiratory rate 19, blood pressure 110/53. CHEST: Clear. CARDIOVASCULAR: Regular rate and rhythm. ABDOMEN: Soft, nontender, without organomegaly or masses. LABORATORY DATA: Shows a sodium 129, potassium 3.3, creatinine 2.44, AST of 42, alkaline phosphatase of 243, albumin 2.1. CBC shows a hemoglobin 8.3, hematocrit 26.6, white blood cell count of 7.0. P athology is pending. MRI is pending. ASSESSMENT: 1. Multiple gastric ulcers. 2. Erosive esophagitis. 3. Gastroparesis. 4. End-stage renal disease. 5. Abnormal liver function tests with a dilated common bile duct. RECOMMENDATIONS: 1. Await MRI results. 2. Continue Protonix drip. 3. Serial H&H.
--- NOTE | 2018-01-25 16:10 | MRI ---
MRI OF THE ABDOMEN WITHOUT AND WITH CONTRAST MRCP 01/25/18 HISTORY: History of cholelithiasis. Prior cholecystectomy. Dilatation of the common bile duct with cholestasis . TECHNIQUE: Multiplanar and multisequence MR images were obtained in the abdomen without contrast. MRCP images w ere performed. FINDINGS: The gallbladder has been removed. There is enlargement of the common bile duct to 17 mm. The common b ile duct tapers to a normal caliber right at the insertion of the duodenum at the sphincter of Oddi. No filling defects are seen within the common bile duct to suggest choledocholithiasis. There is no s ignificant intrahepatic biliary dilatation. No focal liver lesions are seen. The kidneys appears small. The adrenal glands, spleen, and pancreas are unremarkable. IMPRESSION: Enlargement of the common bile duct without evidence of choledocholithiasis. POS: [facility]
[2018-01-25] MEDS: Atorvastatin Calcium 10 MG TAB PO SCH (20:40)
[2018-01-25] MEDS ORDERED: diphenhydrAMINE 25 MG CAP PO PRN (21:30)
--- NOTE | 2018-01-25 23:34 | PDOC.PN ---
- Subjective Encounter Start Date: 01/25/18 Encounter Start Time: 18:00 Subjective: nsg notes rev, byron ovn, s/p EGD, no new c/o, son @ bedside - Objective Vital Signs & Weight: Vital Signs (12 hours) Temp Pulse Resp BP Pulse Ox 01/25/18 16:00 96.4 F L 53 L 16 106/50 L 97 01/25/18 12:00 96.5 F L 55 L 16 108/55 L 100 Weight Admit Weight 176 lb Weight 176 lb Result Diagrams: 01/27/18 04:27 01/27/18 04:27 Additional Labs: Accuchecks 01/25/18 01/25/18 01/25/18 21:03 15:45 06:43 POC Glucose 90 88 78 Phys Exam - Physical Examination Constitutional: NAD HEENT: moist MMs, oral pharynx no lesions Respiratory: no wheezing, no rales, no rhonchi, clear to auscultation bilateral decreased air movement, diminished throughout, limited ant exam Cardiovascular: RRR, no significant murmur, no rub Gastrointestinal: soft, positive bowel sounds Neurological: moves all 4 limbs Psychiatric: normal affect Dx/Plan - Plan * 4 ulcers * apprec GI C/s * continue protonix gtt x48h * pending ulcer bx * esophagitis * empiric antibiotoics ESRD * apprec nephrology c/s * continue HD relative hypotension * preserved mentation and function, continue to monitor diarrhea * pending C diff * enteric precautions, monitor diet: renal activity: as giselle dvt ppx Review of Systems - Medications/Allergies Allergies/Adverse Reactions: Allergies Allergy/AdvReac Type Severity Reaction Status Date / Time No Known Drug Allergies Allergy Verified 11/03/17 11:31 Medications: Current Medications Acetaminophen (Tylenol) 650 mg PO Q4H PRN PRN Reason: Headache/Fever or Pain Last Admin: 01/26/18 03:51 Dose: 650 mg Acetaminophen (Tylenol) 650 mg DE Q4H PRN PRN Reason: Headache/Fever or Pain Atorvastatin Calcium (Lipitor) 10 mg PO HS [facility] Last Admin: 01/27/18 21:28 Dose: 10 mg Bisacodyl (Dulcolax) 10 mg PO DAILYPRN PRN PRN Reason: Constipation Citalopram Hydrobromide (Celexa) 20 mg PO DAILY [facility] Last Admin: 01/27/18 09:51 Dose: 20 mg Clonidine (Catapres) 0.1 mg PO BID PRN PRN Reason: SBP Greater Than 170 Dextrose/Water (Dextrose 50%) 25 gm SLOW IVP PRN PRN PRN Reason: Hypoglycemia Epoetin Robbi (Procrit) 10,000 units SC Q7D [facility] Last Admin: 01/24/18 21:32 Dose: 10,000 units Glucagon (Glucagon) 1 mg IM PRN PRN PRN Reason: Hypoglycemia Dextrose/Water (D5w) 1,000 mls @ 0 mls/hr IV .Q0M PRN; As Directed PRN Reason: Hypoglycemia Insulin Human Lispro (Humalog) 0 units SC .MILD SLIDING SCALE PRN PRN Reason: Mild Correctional Scale Metoprolol Tartrate (Lopressor) 12.5 mg PO Q12HR [facility] Last Admin: 01/27/18 21:28 Dose: Not Given Metronidazole (Flagyl) 500 mg PO TID [facility] Last Admin: 01/27/18 21:28 Dose: 500 mg Ondansetron HCl (Zofran) 4 mg IVP Q6H PRN PRN Reason: Nausea/Vomiting Last Admin: 01/26/18 02:46 Dose: 4 mg Pantoprazole Sodium (Protonix) 40 mg PO BID [facility] Last Admin: 01/27/18 21:28 Dose: 40 mg Phenytoin Sodium (Dilantin Er) 300 mg PO HS [facility] Last Admin: 01/27/18 21:28 Dose: 300 mg Sodium Chloride (Flush - Normal Saline) 10 ml IVF Q12HR [facility] Last Admin: 01/27/18 21:29 Dose: 10 ml Sodium Chloride (Flush - Normal Saline) 10 ml IVF PRN PRN PRN Reason: Saline Flush Vancomycin HCl (First Vancomycin) 125 mg PO QID [facility] Last Admin: 01/27/18 21:30 Dose: 125 mg
[2018-01-26] MEDS: Ondansetron HCl/PF 4 MG/2 ML Vial IVP PRN (02:46)
[2018-01-26] MEDS: Acetaminophen 325 MG TAB PO PRN (03:51)
[2018-01-26] MEDS: Pantoprazole 80 MG, Admixture Fee 1 EACH in Sodium Chloride 0.9% 100 ML IVP SCH (05:16)
[2018-01-26 06:01] LABS: #Basophils 0.1 thou/uL (0.0-0.2); #Eosinphils 0.1 thou/uL (0.0-0.7); #Lymphocytes 1.1 thou/uL (1.20-3.40); #Monocytes 0.1 thou/uL (0.11-0.59); #Neutrophils 4.5 thou/uL (1.40-6.50); %Basophils 2.2 % (0.0-1.0); %Eosinophils 0.9 % (0.0-10.0); %Lymphocytes 18.6 % (21.0-51.0); %Monocytes 1.5 % (0.0-10.0); %Neutrophils 76.8 % (42.0-75.0); Hemoglobin 8.8 g/dL (12.0-16.0); Mean Corpuscular HGB CONC 30.4 g/dL (32.0-36.0); Mean Corpuscular Hemoglobin 29.3 pg (27.0-31.0); Mean Corpuscular Volume 96.5 fl (81.0-99.0); Mean Platelet Volume 10.7 fL (7.4-10.4); Platelet Count 100 thou/uL (130-400); RBC Distribution Width 18.2 % (11.5-14.5); White Blood Cell (WBC) Count 5.9 thou/uL (4.8-10.8)
[2018-01-26 06:18] LABS: Anion Gap 13 mmol/L (10-20); BUN (Urea Nitrogen) 13 mg/dL (7.0-18.7); Calc. Creatinine Clearance 29 mL/min (70-130); Calcium 8.1 mg/dL (7.8-10.44); Carbon Dioxide 24 mmol/L (22-29); Chloride 95 mmol/L (98-107); Estimated GFR-MDRD 16; Glucose 118 mg/dL (70-105); Potassium 3.2 mmol/L (3.5-5.1); Sodium 129 mmol/L (136-145)
--- NOTE | 2018-01-26 09:33 | PRG ---
DATE OF SERVICE: 01/26/2018 DATE OF SERVICE: Renal Medicine. SUBJECTIVE: Ms. Joseph is a 47-year-old female with ESRD and admitted for GI bleed. She underwent an upper GI endoscopy. In addition, she is currently being dialyzed today. We are using n o heparin. I am at the bedside supervising her dialysis. She voices no complaints of chest pain or shortness of breath. During the initial hemodialysis, blood pressure was noted to be on the low side 80/60 - normal saline bolus was given. Currently, it is much improved. PHYSICAL EXAMINATION: VITAL SIGNS: Blood pressure is currently 120/60, heart rate 58, respiratory rate 16, pulse ox 100%. GENERAL EXAM: Noted to be awake, alert, supine, comfortable. SKIN: Adequate turgor. HEENT: Slightly pale conjunctivae, anicteric sclerae. NECK: No neck mass, no carotid bruits, no JVD. CHEST: No deformities. LUNGS: Clear breath sounds. No wheezing, no crackles. HEART: Normal sinus rhythm. No murmur, no gallops, no rubs. ABDOMEN: Globular, soft, nontender, no masses. EXTREMITIES: No edema, no deformities. Status post left BKA. Medications of 01/26/2018 reviewed. LABORATORY DATA: Laboratories of 01/26/2018, white count 5.9, hemoglobin 8.8. Sodium 129, potassium 3.2, chloride 95, carbon dioxide 24, BUN 13, creatinine 3.06, glucose 118, calcium 8.1. ASSESSMENT AND PLAN: 1. Anemia - on weekly Epogen of 10,000 units subcutaneously every week. 2. End-stage renal disease, stable. Currently undergoing dialysis. Fluid removal only as tolerated . Using no heparin due to the recent gastrointestinal bleed. 3. Mild hypokalemia. We will adjust potassium bath to a 4.0 KCl bath. 4. Status post gastrointestinal bleed, stable. GI following. P.r.n. blood transfusion. 5. Hypoalbuminemia. Nepro 1 can b.i.d. Recheck basic metabolic panel and CBC in a.m.
[2018-01-26] MEDS: Citalopram 20 MG TAB PO SCH (11:10)
[2018-01-26] MEDS: Metoprolol Tartrate 25 MG TAB PO SCH ×2 (12:43→20:18)
--- NOTE | 2018-01-26 14:35 | PRG ---
DATE OF SERVICE: 01/26/2018 SUBJECTIVE: The patient denies any abdominal pain, denies any nausea or vomiting today. OBJECTIVE: VITAL SIGNS: Temperature 98.7, pulse 57, respiratory rate 18, blood pressure 86/51. CHEST: Clear. CARDIOVASCULAR: Regular rate and rhythm. ABDOMEN: Benign. LABORATORY DATA: Shows a sodium 129, potassium 3.2, creatinine 3.06, glucose 118. CBC shows white b lood cell count of 59, hemoglobin 8.8, hematocrit 28.9, platelet counts are 100. Gastric biopsies sh owed no Helicobacter pylori. No metaplasia or other abnormalities. MRCP was negative for any fillin g defects within a common bile duct. ASSESSMENT: 1. Gastric ulcer. 2. Gastroparesis. 3. Gastrointestinal bleeding - resolved. 4. Abnormal liver function tests, multifactorial, MRCP was negative for any choledocholithiasis. RECOMMENDATIONS: 1. Continue PPI. 2. Advance diet. 3. Switch Protonix to p.o. 4. We will sign off.
[2018-01-26] MEDS: Atorvastatin Calcium 10 MG TAB PO SCH (20:16)
--- NOTE | 2018-01-26 23:35 | PDOC.PN ---
- Subjective Encounter Start Date: 01/26/18 Encounter Start Time: 11:00 Subjective: nsg notes rev, byron ovn, no new c/o, reports feeling "bad" overall -: denies feeling lightheaded/ dizziness when her blood pressure is reported -: as low to her - Objective Vital Signs & Weight: Vital Signs (12 hours) Temp Pulse Resp BP Pulse Ox 01/26/18 19:25 97.4 F L 57 L 18 91/53 L 100 01/26/18 16:00 95.0 F L 55 L 16 91/50 L 100 01/26/18 12:00 86/51 L Weight Admit Weight 176 lb Weight 197 lb 6.4 oz I&O: 01/25/18 01/26/18 01/27/18 06:59 06:59 06:59 Intake Total 503 Balance 503 Result Diagrams: 01/28/18 04:19 01/28/18 04:19 Additional Labs: Accuchecks 01/26/18 01/26/18 01/26/18 20:46 16:42 11:10 POC Glucose 123 H 94 83 01/26/18 06:44 POC Glucose 117 H Phys Exam - Physical Examination Constitutional: NAD HEENT: sclera anicteric, oral pharynx no lesions slightly dry mm Respiratory: no wheezing, no rales, no rhonchi coarse throughout with poor air mvmt, limited ant exam Cardiovascular: RRR, no significant murmur, no rub Gastrointestinal: soft, positive bowel sounds Psychiatric: normal affect Dx/Plan - Plan * 4 ulcers * apprec GI C/s * continue protonix gtt x48h * pending ulcer bx * esophagitis ESRD * apprec nephrology c/s * continue HD * suspect may have chronic lower SBP as she demonstrates preserved mentation at lower BPs relative hypotension * preserved mentation and function, continue to monitor diarrhea * pending C diff - less BM today * enteric precautions, monitor Discussed advanced care planning with patient - she would like to name her niece Sherie as her medical decision maker if she is unable to make her own medical decisions. She reports having discussed her future wishes with her niece but declines to provide that information today. Therefore, she is currently full code by default. Overall, patient has poor mcc prognosis. diet: renal activity: as giselle dvt ppx Greater than 30 minutes spent at bedside today discussing plan of care, goals of care, treatment plan and prognosis.
[2018-01-27 05:22] LABS: #Eosinphils 0.1 thou/uL (0.0-0.7); #Lymphocytes 1.4 thou/uL (1.20-3.40); #Neutrophils 3.4 thou/uL (1.40-6.50); %Basophils 0.3 % (0.0-1.0); %Eosinophils 1.9 % (0.0-10.0); %Lymphocytes 28.3 % (21.0-51.0); %Monocytes 0.4 % (0.0-10.0); Hemoglobin 8.3 g/dL (12.0-16.0); Mean Corpuscular HGB CONC 30.4 g/dL (32.0-36.0); Mean Corpuscular Hemoglobin 29.3 pg (27.0-31.0); Mean Corpuscular Volume 96.4 fl (81.0-99.0); Mean Platelet Volume 9.4 fL (7.4-10.4); Platelet Count 114 thou/uL (130-400); RBC Distribution Width 18.2 % (11.5-14.5); Red Blood Cell (RBC) Count 2.85 mill/uL (4.20-5.40)
[2018-01-27 05:30] LABS: Anion Gap 10 mmol/L (10-20); BUN (Urea Nitrogen) 6 mg/dL (7.0-18.7); Calc. Creatinine Clearance 46 mL/min (70-130); Calcium 8.1 mg/dL (7.8-10.44); Carbon Dioxide 26 mmol/L (22-29); Chloride 98 mmol/L (98-107); Estimated GFR-MDRD 25; Glucose 65 mg/dL (70-105); Sodium 131 mmol/L (136-145)
[2018-01-27] MEDS: Metoprolol Tartrate 25 MG TAB PO SCH ×2 (09:05→21:28)
[2018-01-27] MEDS ORDERED: Potassium Chloride 20 MEQ TAB PO SCH (09:30)
--- NOTE | 2018-01-27 09:50 | PRG ---
DATE OF SERVICE: 01/27/2018 SERVICE: Renal Medicine. SUBJECTIVE: Ms. Joseph is a 47-year-old female with ESRD and admitted for an upper GI ble ed - she is status post upper GI endoscopy. She is doing well, no new complaints. Yesterday, blood pressure was on the low side during dialysis. Again, normal saline as bolus was given during dialysi s. No new complaints today. The patient denies any chest pain or shortness of breath. PHYSICAL EXAMINATION: VITAL SIGNS: Blood pressure is noted at 87/49 with a heart rate of 58, respiratory rate 16, temperat ure 95.6, pulse ox 100%. GENERAL: Noted to be sleepy, but arousable and comfortable, not in distress. SKIN: Adequate turgor. HEENT: Pinkish conjunctivae, anicteric sclerae. NECK: No neck mass, no carotid bruits, no JVD. CHEST: No deformities. LUNGS: Clear breath sounds, no wheezing, no crackles. HEART: Normal sinus rhythm. No murmur, no gallops or rubs. ABDOMEN: Globular, soft, nontender, no masses. EXTREMITIES: No edema, status post left AKA. MEDICATIONS: Of 01/27/2018 was reviewed. LABORATORY DATA: Of 01/27/2018, white count 5, hemoglobin 8.3. Sodium 131, potassium 3, chloride 98 , carbon dioxide 26, BUN 6, creatinine 2.14, glucose 65, calcium 8.1. ASSESSMENT AND PLAN: 1. Mild hypokalemia - p.r.n. potassium replacement - p.o. potassium. 2. Anemia - p.r.n. blood transfusion, continuing weekly Epogen of 10,000 units subcutaneously every week. 3. End-stage renal disease, stable. Continuing Tuesday, , and Tuesday hemodialysis. No in dication for any emergent hemodialysis. Due to recent gastrointestinal bleed - no heparin use. 4. Status post upper gastrointestinal bleed, stable. The patient is status post upper GI endoscopy. GI following. Recheck base met and CBC in a.m.
[2018-01-27] MEDS: Citalopram 20 MG TAB PO SCH (09:51)
[2018-01-27] MEDS: metroNIDAZOLE 500 MG TAB PO SCH (21:28)
[2018-01-27] MEDS: Atorvastatin Calcium 10 MG TAB PO SCH (21:28)
[2018-01-27] MEDS: Vancomycin HCl 25 MG/ML Oral PO SCH (21:30)
--- NOTE | 2018-01-28 00:49 | PDOC.PN ---
- Subjective Encounter Start Date: 01/27/18 Encounter Start Time: 19:00 Subjective: nsg notes rev, byron ovn, no new c/o denies NAQVI, dizziness, abd pain, does hav -: occasional loose BM still - Objective Vital Signs & Weight: Vital Signs (12 hours) Temp Pulse Resp BP Pulse Ox 01/28/18 00:00 97.8 F 59 L 18 89/50 L 100 01/27/18 20:15 98.0 F 61 16 94/51 L 100 01/27/18 17:25 109/57 L 01/27/18 16:00 98.3 F 55 L 16 77/45 L 100 Weight Admit Weight 176 lb Weight 188 lb 14.978 oz I&O: 01/26/18 01/27/18 01/28/18 06:59 06:59 06:59 Intake Total 503 360 Output Total 1 Balance 503 360 -1 Result Diagrams: 01/28/18 04:19 01/28/18 04:19 Additional Labs: Accuchecks 01/27/18 01/27/18 01/27/18 20:45 17:54 11:09 POC Glucose 84 92 83 01/27/18 05:51 POC Glucose 73 Phys Exam - Physical Examination Constitutional: NAD HEENT: oral pharynx no lesions slightly dry mm Respiratory: no wheezing, no rales, no rhonchi, clear to auscultation bilateral Cardiovascular: RRR, no significant murmur, no rub Gastrointestinal: soft, positive bowel sounds Psychiatric: normal affect Dx/Plan - Plan * 4 ulcers * apprec GI C/s * continue protonix gtt x48h * pending ulcer bx * esophagitis ESRD * apprec nephrology c/s * continue HD * suspect may have chronic lower SBP as she demonstrates preserved mentation at lower BPs relative hypotension * preserved mentation and function, continue to monitor C Diff diarrhea * start oral metronidazole, oral vancomycin * enteric precautions, monitor c/s palliative care for goals of care start planning for d/c back to residential snf diet: renal activity: as giselle dvt ppx
[2018-01-28 05:31] LABS: #Eosinphils 0.1 thou/uL (0.0-0.7); #Lymphocytes 1.7 thou/uL (1.20-3.40); #Neutrophils 2.5 thou/uL (1.40-6.50); %Basophils 0.5 % (0.0-1.0); %Eosinophils 2.5 % (0.0-10.0); %Lymphocytes 37.8 % (21.0-51.0); %Neutrophils 58.3 % (42.0-75.0); Hemoglobin 7.6 g/dL (12.0-16.0); Mean Corpuscular HGB CONC 31.2 g/dL (32.0-36.0); Mean Corpuscular Hemoglobin 29.8 pg (27.0-31.0); Mean Corpuscular Volume 95.5 fl (81.0-99.0); Mean Platelet Volume 9.5 fL (7.4-10.4); Platelet Count 106 thou/uL (130-400); RBC Distribution Width 18.3 % (11.5-14.5); Red Blood Cell (RBC) Count 2.56 mill/uL (4.20-5.40); White Blood Cell (WBC) Count 4.4 thou/uL (4.8-10.8)
[2018-01-28 05:37] LABS: Anion Gap 8 mmol/L (10-20); BUN (Urea Nitrogen) 7 mg/dL (7.0-18.7); Calc. Creatinine Clearance 34 mL/min (70-130); Calcium 8.2 mg/dL (7.8-10.44); Carbon Dioxide 27 mmol/L (22-29); Chloride 97 mmol/L (98-107); Estimated GFR-MDRD 18; Glucose 81 mg/dL (70-105); Potassium 3.4 mmol/L (3.5-5.1); Sodium 129 mmol/L (136-145)
--- NOTE | 2018-01-28 08:25 | PDOC.PN ---
- Subjective Encounter Start Date: 01/28/18 Encounter Start Time: 08:15 Subjective: Expresses no complaint. -: Diarrhea is improving. - Objective MAR Reviewed: Yes Vital Signs & Weight: Vital Signs (12 hours) Temp Pulse Resp BP Pulse Ox 01/28/18 07:45 96.2 F L 56 L 18 119/65 100 01/28/18 04:00 97.8 F 57 L 18 94/53 L 100 01/28/18 00:00 97.8 F 59 L 18 89/50 L 100 Weight Admit Weight 176 lb Weight 188 lb 14.978 oz I&O: 01/27/18 01/28/18 01/29/18 06:59 06:59 06:59 Intake Total 360 200 Output Total 1 Balance 360 199 Result Diagrams: 01/28/18 04:19 01/28/18 04:19 Additional Labs: Accuchecks 01/28/18 01/27/18 01/27/18 06:03 20:45 17:54 POC Glucose 80 84 92 01/27/18 11:09 POC Glucose 83 Phys Exam - Physical Examination Constitutional: NAD HEENT: oral pharynx no lesions (Right eye blindness.) Neck: no JVD Respiratory: clear to auscultation bilateral Cardiovascular: RRR Gastrointestinal: soft, non-tender, positive bowel sounds Musculoskeletal: no edema (s/p left bka...Skin changes of pvd in right leg.) Dx/Plan (1) HTN (hypertension) Code(s): I10 - ESSENTIAL (PRIMARY) HYPERTENSION Status: Acute Comment: BP has been low. BP med on hold. Patient is not symptomatic . (2) Diabetes Code(s): E11.9 - TYPE 2 DIABETES MELLITUS WITHOUT COMPLICATIONS Status: Acute Plan: On sliding scale.. Comment: BS is satisfactory.. (3) PVD (peripheral vascular disease) Code(s): I73.9 - PERIPHERAL VASCULAR DISEASE, UNSPECIFIED Status: Acute (4) Clostridium difficile diarrhea Code(s): A04.72 - ENTEROCOLITIS D/T CLOSTRIDIUM DIFFICILE, NOT SPCF RECUR Status: Acute Plan: Diarrhea is improving.. On Vancomycin, Metronidazole. (5) Dyslipidemia Code(s): E78.5 - HYPERLIPIDEMIA, UNSPECIFIED Status: Chronic (6) ESRD (end stage renal disease) on dialysis Code(s): N18.6 - END STAGE RENAL DISEASE; Z99.2 - DEPENDENCE ON RENAL DIALYSIS Status: Chronic Comment: Undergoing HD. HB/HCT is low. On Erythropoietin.. Defer RBC's transfusion to nephrology. (7) Upper GI bleeding Code(s): K92.2 - GASTROINTESTINAL HEMORRHAGE, UNSPECIFIED Status: Acute Plan: Continue PPI. f/u hb/hct. Comment: s/p EGD. - Plan -: Continue current therapy. -: f/u with consultants. * .
--- NOTE | 2018-01-28 12:29 | PRG ---
DATE OF SERVICE: 01/28/2018 SERVICE: Renal medicine. SUBJECTIVE: Ms. Joseph is a 47-year-old female with ESRD, admitted for GI bleed. The pat ient is status post endoscopy. She is currently undergoing hemodialysis. I am at the bedside superv ising her dialysis. No other complaints. She is feeling better. OBJECTIVE: VITAL SIGNS: Blood pressure 119/65, heart rate 56, respiratory rate 18, temperature 96.2 and pulse o x 100%. GENERAL: Awake, alert and comfortable, not in distress. Decreased visual acuity. HEENT: Slightly pale conjunctivae, anicteric sclerae. NECK: No neck mass, no carotid bruits, no JVD. CHEST: No deformities. LUNGS: Clear breath sounds. No wheezing, no crackles. HEART: Normal sinus rhythm. No murmur, no gallops, no rubs. ABDOMEN: Globular, soft and nontender. No masses. EXTREMITIES: Status post leg amputation. MEDICATIONS: Medications of 01/28/2018 reviewed. LABORATORY DATA: Laboratories of 01/28/2018; white count 4.4 and hemoglobin 7.6. Sodium 129, potass ium 3.4, chloride 97, carbon dioxide 27, BUN 7, creatinine 2.77, glucose 81 and calcium 8.2. ASSESSMENT AND PLAN: 1. Mild hypokalemia. Adjust potassium bath with dialysis. 2. Anemia. P.r.n. blood transfusion. Continue weekly Epogen at 10,000 units subcutaneously q. week . 3. End-stage renal disease, stable using heparin-free hemodialysis. Fluid removal only as tolerated . Please note, blood pressure has been low in the last few treatments and for that reason, minimal f luid has been removed. Recheck base met and CBC in a.m.
[2018-01-28] MEDS: Vancomycin HCl 25 MG/ML Oral PO SCH ×4 (12:46→21:49)
[2018-01-28] MEDS: Metoprolol Tartrate 25 MG TAB PO SCH ×2 (12:56→21:56)
[2018-01-28] MEDS: Citalopram 20 MG TAB PO SCH (13:07)
[2018-01-28] MEDS: metroNIDAZOLE 500 MG TAB PO SCH ×3 (13:08→21:55)
[2018-01-28] MEDS: Acetaminophen 325 MG TAB PO PRN (16:37)
[2018-01-28] MEDS: Atorvastatin Calcium 10 MG TAB PO SCH (21:50)
--- NOTE | 2018-01-29 08:10 | PDOC.PN ---
- Subjective Encounter Start Date: 01/29/18 Encounter Start Time: 07:40 Subjective: No specificcomplaint... - Objective Vital Signs & Weight: Vital Signs (12 hours) Temp Pulse Resp BP Pulse Ox 01/29/18 07:30 97.1 F L 63 18 80/51 L 01/29/18 04:00 97.7 F 63 16 96/61 93 L 01/29/18 00:00 97.8 F 59 L 13 72/41 L 97 Weight Admit Weight 176 lb Weight 173 lb 11.588 oz I&O: 01/28/18 01/29/18 01/30/18 06:59 06:59 06:59 Intake Total 200 60 Output Total 1 0 Balance 199 60 Result Diagrams: 01/28/18 04:19 01/28/18 04:19 Additional Labs: Accuchecks 01/29/18 01/28/18 01/28/18 06:10 20:52 17:23 POC Glucose 75 109 73 01/28/18 14:34 POC Glucose 55 L* Phys Exam - Physical Examination HEENT: sclera anicteric (Left eye blindness.) Neck: no JVD Respiratory: clear to auscultation bilateral Cardiovascular: RRR Gastrointestinal: soft Musculoskeletal: no edema (s/p left BKA) Neurological: moves all 4 limbs Psychiatric: A&O x 3 Dx/Plan (1) HTN (hypertension) Code(s): I10 - ESSENTIAL (PRIMARY) HYPERTENSION Status: Acute Comment: BP has been low. BP med on hold. Patient is not symptomatic . (2) Diabetes Code(s): E11.9 - TYPE 2 DIABETES MELLITUS WITHOUT COMPLICATIONS Status: Acute Comment: BS is satisfactory.. (3) PVD (peripheral vascular disease) Code(s): I73.9 - PERIPHERAL VASCULAR DISEASE, UNSPECIFIED Status: Acute (4) Clostridium difficile diarrhea Code(s): A04.72 - ENTEROCOLITIS D/T CLOSTRIDIUM DIFFICILE, NOT SPCF RECUR Status: Acute Plan: Diarrhea has improved. Continue Vancomycin, Flagyl. (5) Dyslipidemia Code(s): E78.5 - HYPERLIPIDEMIA, UNSPECIFIED Status: Chronic (6) ESRD (end stage renal disease) on dialysis Code(s): N18.6 - END STAGE RENAL DISEASE; Z99.2 - DEPENDENCE ON RENAL DIALYSIS Status: Chronic Comment: HB/HCT is low. On Erythropoietin.. f/u hb/hct. (7) Upper GI bleeding Code(s): K92.2 - GASTROINTESTINAL HEMORRHAGE, UNSPECIFIED Status: Acute Comment: s/p EGD. f/u hb/hct. - Plan -: Continue current therapy. -: Consider Echo to exclude tamponade & assess EF if BP remains low. * .
--- NOTE | 2018-01-29 09:48 | PDOC.EVN ---
Event Note - Event Note Event Note: Patient's BP was noticed to be very low, with systolic in the 70's.. Started on NS.. Echo requested to assess EF & exclude tamponade.
[2018-01-29 10:03] LABS: Eosinophils 2 % (0-10); Hemoglobin 7.6 g/dL (12.0-16.0); Lymphocytes 50 % (21-51); MDiff Complete? YES; Mean Corpuscular HGB CONC 30.9 g/dL (32.0-36.0); Mean Corpuscular Hemoglobin 29.9 pg (27.0-31.0); Mean Corpuscular Volume 96.9 fl (81.0-99.0); Mean Platelet Volume 9.9 fL (7.4-10.4); Monocytes 5 % (0-10); Neutrophil 43 % (42-75); Nucleated RBC 1 % (0); PLT Morphology Comment Appears Decreased; Platelet Count 71 thou/uL (130-400); RBC Distribution Width 18.4 % (11.5-14.5); Red Blood Cell (RBC) Count 2.53 mill/uL (4.20-5.40); Target Cells SLIGHT = 2-5 cells (100X) (0-1/hpf)
[2018-01-29 10:07] LABS: Anion Gap 11 mmol/L (10-20); BUN (Urea Nitrogen) Less than 4 mg/dL (7.0-18.7); Calc. Creatinine Clearance 47 mL/min (70-130); Calcium 8.1 mg/dL (7.8-10.44); Carbon Dioxide 27 mmol/L (22-29); Chloride 100 mmol/L (98-107); Estimated GFR-MDRD 29; Glucose 67 mg/dL (70-105); Potassium 3.7 mmol/L (3.5-5.1); Sodium 134 mmol/L (136-145)
[2018-01-29] MEDS: Metoprolol Tartrate 25 MG TAB PO SCH ×2 (10:12→21:16)
[2018-01-29] MEDS ORDERED: Midodrine HCl 5 MG TAB PO SCH (10:15)
[2018-01-29] MEDS: Citalopram 20 MG TAB PO SCH (10:18)
[2018-01-29] MEDS: metroNIDAZOLE 500 MG TAB PO SCH ×3 (10:18→21:16)
[2018-01-29] MEDS: Vancomycin HCl 25 MG/ML Oral PO SCH ×4 (10:19→21:15)
[2018-01-29] MEDS: Sodium Chloride 0.9% 1,000 ML IV SCH ×2 (10:32→17:38)
[2018-01-29 10:40] LABS: CKMB 1.7 ng/mL (0-6.6); Troponin I Less than 0.010 ng/mL (< 0.028)
[2018-01-29] MEDS: Dextrose 50% Abboject 50 ML SYRINGE SLOW IVP PRN (11:28)
--- NOTE | 2018-01-29 12:47 | PRG ---
DATE OF SERVICE: 01/29/2018 SERVICE: Renal Medicine. SUBJECTIVE: Ms. Joseph is a 47-year-old female with ESRD. Early this morning, the patien t became hypotensive and had mental status change. Merary briones was called. The patient was evaluated and she started maintaining better. She was placed on Trendelenburg. Normal saline 250 mL bolus wa s given with improvement of her mentation. Review of her chart showed that she has a sinus pause last night. A cardiac echo has been ordered and a plan for cardiology consult has been made. The patient is feeling better this morning. OBJECTIVE: VITAL SIGNS: Blood pressure currently 80/51 with a heart rate of 63, temperature 97.1, pulse ox is 9 3%. GENERAL: Awake, alert, supine, comfortable, not in distress. SKIN: Adequate turgor. HEENT: Slightly pale conjunctivae, anicteric sclerae. NECK: No neck mass, no carotid bruits, no JVD. CHEST: No deformities. LUNGS: Clear breath sounds. No wheezing, no crackles. HEART: Normal sinus rhythm. No murmur, no gallops, no rubs. ABDOMEN: Globular, soft, nontender. EXTREMITIES: Status post leg amputation. NEUROLOGIC: Awake, oriented to 3 spheres. Moving all extremities. No tremors or asterixis. MEDICATIONS: Of 01/29/2018 was reviewed. LABORATORY DATA: Of 01/29/2018, white count 5, hemoglobin 7.6. Sodium 134, potassium 3.7, chloride 100, carbon dioxide 27, BUN less than 4, creatinine 1.88, glucose 67, calcium 8.1. ASSESSMENT AND PLAN: 1. Acute hypotension - consider the possibility of volume depletion. We need to rule out this patie nt for myocardial infarction, at the same time cardiac echo has been ordered[facility] Patient has also been started on midodrine. Normal saline bolus has also been [facility] 2. End-stage renal disease, continuing Tuesday, , and Tuesday dialysis regimen. In the pas t, blood pressure has been noted to be on the low side and minimal fluid was removed with her during each dialysis session. 3. Anemia, multifactorial, recent status post gastrointestinal bleed. Currently on weekly Epogen. Overall, prognosis remains guarded. We will recheck base met and CBC in a.m., cardiac enzymes q.8 ho urs x3.
[2018-01-29] MEDS: Midodrine HCl 5 MG TAB PO SCH ×2 (15:37→21:15)
[2018-01-29] MEDS: Atorvastatin Calcium 10 MG TAB PO SCH (21:15)
--- NOTE | 2018-01-29 22:12 | CON ---
DATE OF CONSULTATION: 01/29/2018 DATE OF ADMISSION: 01/24/2018 INDICATION FOR CONSULTATION: Sinus arrest with a 6-second pause and also repeat pauses of up to 4.9- second pauses. We were asked to see her due to these significant pauses. HISTORY OF PRESENT ILLNESS: This is a very unfortunate 47-year-old female with a multitude of proble ms and has end-stage renal disease, on hemodialysis. She had previously undergone pacemaker insertio n due to bradycardia or sick sinus syndrome. Unfortunately, she developed Staph sepsis and the pacem sarah was removed in [place], I believe within the last year or so. I not sure exactly when it was rem [place]. She had been doing relatively well. She was again in the hospital back in November of this ye ar, was seen by Dr. Ahumada. At that time, fortunately, she had not had any significant symptomatic b radycardia. She had been found at that time to be unresponsive, was felt to be due to hypoglycemia, and she responded to being given some D50. She is brought into the hospital again at this time due t o her medical problems. I believe she was admitted on 01/24/2018 due to nausea, vomiting, and weakne ss. She had had no chest pain and she has been monitored. She has been undergoing hemodialysis whil e in the hospital. She does have end-stage disease. She has a long history also of diabetes and hyp ertension. She has peripheral vascular disease. She has undergone amputation of the left lower extr emity. She has actually had a cardiac arrest in the past due to hyperkalemia. She has had a history of cholecystectomy. She has a history of anxiety and depression. ALLERGIES: None. PRESENT MEDICATIONS: Include Lipitor 10 mg, Celexa, Procrit, metoprolol 12.5 mg b.i.d. She is on mi tronidazole 500 mg t.i.d., midodrine. She is also taking Protonix, phenytoin, vancomycin. She is on Tylenol. She is on p.r.n. medications and she is also on insulin sliding scale. ALLERGIES: None. SOCIAL HISTORY: She lives in [facility]. FAMILY HISTORY: Also positive for end-stage renal disease on several family members, have been on he modialysis. REVIEW OF SYSTEMS: Very difficult to obtain. The patient would not talk to me. She seems to be susan y agitated, was very hard to arouse, and then will go back to sleep. She does have some history of b ipolar disorder. Just when touching the patient, she screams in pain, but there has been no signific ant abnormalities noted where she complains of the pain, even at the upper right thigh, where no sign ificant abnormalities were noted. She complained of pain, but would not answer any questions and wou ld not arouse enough to at least refuse to answer the questions. When I tried to examine her, she ke pt trying to pull the sheets up and was not very helpful, but otherwise was able to get some evaluati on from a physical evaluation, but otherwise very difficult historian. Please refer to the records a lready dictated. PHYSICAL EXAMINATION: GENERAL: Reveals a middle-aged female. VITAL SIGNS: Blood pressure has been very low anywhere between 70/30, this afternoon was 84/51; O2 s aturation 92%; respiratory rate of 14; heart rate 74, but earlier today was very bradycardic as noted . It is possible she was sleeping at that time, but she actually had a sinus arrest with a 6.3-secon d pause. She went from a sinus rhythm and then had a sinus arrest and then developed again sinus rhy thm with bradycardia and then again had heart rates in the 40s-50s and then went to 70s. She is on r oom air. She is afebrile. HEENT: Reveals head to be normocephalic, atraumatic. I did not hear any significant bruits. CHEST: Clear to auscultation. I did not hear any rales, rhonchi, or wheezing. CARDIOVASCULAR: At this time, there is regular rate and rhythm. She has no significant murmurs. ABDOMEN: Soft and nontender. EXTREMITIES: No clubbing or cyanosis. She has BKA on the left. SKIN: Warm. PSYCHIATRIC: She is certainly an uncooperative patient. Her EKG shows sinus rhythm except for the pauses as noted. LABORATORY DATA: Shows hemoglobin 7.6, hematocrit was 24, WBC of 5. Her platelet count was 71,000. Chemistries show a creatinine of 1.88, potassium was 3.7. Her troponin I's are negative. Her blood sugar was 67. She had an echocardiogram today, which shows a normal ejection fraction, evidence of probable diastolic dysfunction. She has mild dilatation of the left atrium, right atrium, and also s ome dilatation of the right ventricle. She has severe tricuspid valve regurgitation. IMPRESSION: 1. Severe bradycardia associated with sinus arrest in a patient who has undergone pacemaker insertio n in the past and then developed sepsis and had to have the pacemaker removed. This is a certainly d ifficult situation for this patient. We may have to consider re-implanting the pacemaker despite the risk of repeat infection. We will discuss these issues with Dr. Ahumada tomorrow. She did not appea r to be symptomatic; however, the patient is sleeping most of the day and does not awaken. The other option would be to make the patient a DNR due to her multiple medical problems. 2. End-stage renal disease, which has been a longstanding process and she remains on dialysis. 3. Severe peripheral vascular disease. She has undergone a BKA in the past. 4. Bipolar disorder. 5. Anemia. This will be dealt with by the binder folder operator. We will be happy to continue to follow the patient with you. We will need to make a decision about her pacemaker, whether to re-implant or not , if this can be discussed with the patient at this time. She is unwilling to have any discussion wi th me. We may need to determine whether there are family members available that can also make decisi ons for the patient.
[2018-01-30] MEDS: Sodium Chloride 0.9% 1,000 ML IV SCH ×2 (04:22→17:47)
[2018-01-30 05:10] LABS: #Eosinphils 0.3 thou/uL (0.0-0.7); #Lymphocytes 3.8 thou/uL (1.20-3.40); #Monocytes 0.1 thou/uL (0.11-0.59); #Neutrophils 4.3 thou/uL (1.40-6.50); %Basophils 0.3 % (0.0-1.0); %Eosinophils 3.8 % (0.0-10.0); %Lymphocytes 44.5 % (21.0-51.0); %Monocytes 1.4 % (0.0-10.0); Hemoglobin 8.1 g/dL (12.0-16.0); Mean Corpuscular Volume 96.8 fl (81.0-99.0); Mean Platelet Volume 9.6 fL (7.4-10.4); Platelet Count 87 thou/uL (130-400); RBC Distribution Width 18.2 % (11.5-14.5); Red Blood Cell (RBC) Count 2.69 mill/uL (4.20-5.40); White Blood Cell (WBC) Count 8.5 thou/uL (4.8-10.8)
[2018-01-30 05:18] LABS: Anion Gap 11 mmol/L (10-20); BUN (Urea Nitrogen) Less than 4 mg/dL (7.0-18.7); Calc. Creatinine Clearance 38 mL/min (70-130); Carbon Dioxide 24 mmol/L (22-29); Chloride 102 mmol/L (98-107); Estimated GFR-MDRD 23; Glucose 81 mg/dL (70-105); Potassium 3.7 mmol/L (3.5-5.1); Sodium 133 mmol/L (136-145)
[2018-01-30] MEDS: Citalopram 20 MG TAB PO SCH (10:05)
[2018-01-30] MEDS: Midodrine HCl 5 MG TAB PO SCH ×3 (10:06→20:50)
[2018-01-30] MEDS: Vancomycin HCl 25 MG/ML Oral PO SCH ×4 (10:06→20:51)
[2018-01-30] MEDS: metroNIDAZOLE 500 MG TAB PO SCH ×3 (10:06→20:51)
[2018-01-30] MEDS: Metoprolol Tartrate 25 MG TAB PO SCH (10:14)
[2018-01-30] MEDS: Ondansetron HCl/PF 4 MG/2 ML Vial IVP PRN (11:36)
--- NOTE | 2018-01-30 12:47 | PDOC.PN ---
- Subjective Encounter Start Date: 01/30/18 Encounter Start Time: 13:45 - Objective Vital Signs & Weight: Vital Signs (12 hours) Temp Pulse Resp BP Pulse Ox 01/30/18 12:41 97.2 F L 65 18 89/51 L 89 L 01/30/18 07:58 98.5 F 68 14 103/54 L 93 L 01/30/18 05:31 95 01/30/18 04:00 98.7 F 65 20 120/65 96 Weight Admit Weight 176 lb Weight 176 lb 2.389 oz I&O: 01/29/18 01/30/18 01/31/18 06:59 06:59 06:59 Intake Total 60 1490 Output Total 0 100 Balance 60 1390 Result Diagrams: 01/30/18 04:08 01/30/18 04:08 Additional Labs: Accuchecks 01/30/18 01/29/18 01/29/18 05:53 20:48 17:06 POC Glucose 88 87 84 01/29/18 13:41 POC Glucose 100 Dx/Plan - Plan * .
--- NOTE | 2018-01-30 14:59 | PDOC.PN ---
- Subjective Encounter Start Date: 01/30/18 Encounter Start Time: 14:59 cc: BRADYCHARDIA SUB: Pt is lethargic. - Objective Vital Signs & Weight: Vital Signs (12 hours) Temp Pulse Resp BP Pulse Ox 01/30/18 12:41 97.2 F L 65 18 89/51 L 89 L 01/30/18 07:58 98.5 F 68 14 103/54 L 93 L 01/30/18 05:31 95 01/30/18 04:00 98.7 F 65 20 120/65 96 Weight Admit Weight 176 lb Weight 176 lb 2.389 oz I&O: 01/29/18 01/30/18 01/31/18 06:59 06:59 06:59 Intake Total 60 1490 Output Total 0 100 Balance 60 1390 Result Diagrams: 01/30/18 04:08 01/30/18 04:08 Additional Labs: Accuchecks 01/30/18 01/30/18 01/29/18 13:23 05:53 20:48 POC Glucose 86 88 87 01/29/18 17:06 POC Glucose 84 Dx/Plan - Plan Physical Examination General: lethargic HEENT: sclera anicteric (Left eye blindness.) Neck: no JVD Respiratory: clear to auscultation bilateral Cardiovascular: RRR Gastrointestinal: soft Musculoskeletal: no edema (s/p left BKA) Neurological: moves all 4 limbs Psychiatric: A&O x 3 Dx/Plan (1) HTN (hypertension) Code(s): I10 - ESSENTIAL (PRIMARY) HYPERTENSION Status: Acute Comment: BP has been low. BP med on hold. Patient is not symptomatic . (2) Diabetes Code(s): E11.9 - TYPE 2 DIABETES MELLITUS WITHOUT COMPLICATIONS Status: Acute Comment: BS is satisfactory.. (3) PVD (peripheral vascular disease) Code(s): I73.9 - PERIPHERAL VASCULAR DISEASE, UNSPECIFIED Status: Acute (4) Clostridium difficile diarrhea Code(s): A04.72 - ENTEROCOLITIS D/T CLOSTRIDIUM DIFFICILE, NOT SPCF RECUR Status: Acute Plan: Diarrhea has improved. Continue Vancomycin, Flagyl. (5) Dyslipidemia Code(s): E78.5 - HYPERLIPIDEMIA, UNSPECIFIED Status: Chronic (6) ESRD (end stage renal disease) on dialysis Code(s): N18.6 - END STAGE RENAL DISEASE; Z99.2 - DEPENDENCE ON RENAL DIALYSIS Status: Chronic Comment: HB/HCT is low. On Erythropoietin.. f/u hb/hct. (7) Upper GI bleeding Code(s): K92.2 - GASTROINTESTINAL HEMORRHAGE, UNSPECIFIED Status: Acute Comment: s/p EGD. f/u hb/hct. - Plan -: Continue current therapy. -: Cardio on board. Reviewed note. -: d/w Pt this am about pacemaker pt doesn't want it but pt currently appears lethargic. D/W palliative care. Has family meeting probably today. Attempted to call pt daughter mei at [phone] not timmy to reach her Hold bp meds for now d/w pt & RN
--- NOTE | 2018-01-30 15:11 | PRG ---
DATE OF SERVICE: 01/30/2018 RENAL MEDICINE SUBJECTIVE: Ms. Joseph had episodes of sinus pauses. She has been seen by Cardiology and recommendation is to place back her pacemaker. The patient declined. Please note she had an infected line previously that previous pacemaker was removed. The patient is now declining to have another pacemaker. I tried to convince her to have it placed, but she is declining today. No other complaints. She was hypotensive yesterday and currently on maintenance IV fluid. No complaint of chest pain or shortness of breath. PHYSICAL EXAMINATION: VITAL SIGNS: Blood pressure 103/54, heart rate 68, respiratory rate 14, temperature 98.5, pulse ox 93%. GENERAL: Awake, supine, comfortable, not in distress. SKIN: Adequate turgor. HEENT: Slightly pale conjunctivae, anicteric sclerae. NECK: No neck mass, no carotid bruits. Decreased visual acuity. LUNGS: Clear breath sounds, no wheezing, no crackles. HEART: Normal sinus rhythm. No murmurs, no gallops, no rubs. ABDOMEN: Globular, soft, nontender. No masses. EXTREMITIES: No edema. Status post leg amputation. MEDICATIONS: Medications of 01/30/2018 reviewed. LABORATORY DATA: Laboratories of 01/30/2018; white count 8.5, hemoglobin 8.1. Sodium 133, potassium 3.7, chloride 102, carbon dioxide 24, BUN less than 4, creatinine 2.32, glucose 81, calcium 8.0. ASSESSMENT AND PLAN: 1. Bradycardia. Decrease blood pressure -. However, we will discontinue the clonidine. Midodrine started; currently on NS 2. Sinus radha/sinus pauses - declining placement of pacemaker. Cardiology following. 3. End-stage renal disease, stable. We will continue current Tuesday, , and Tuesday dialysis regimen. Fluid removal only as tolerated. 4. Status post upper gastrointestinal bleed, stable. 5. Anemia, continuing weekly Epogen. Recheck basic metabolic panel and CBC in a.m. MTDD
--- NOTE | 2018-01-30 15:14 | PRG ---
DATE OF SERVICE: 01/30/2018 SUBJECTIVE: Ms. Joseph is awake today, but will not answer any questions. She awakens to jordy johnson, but will not tell me what year it is or where she is, I do not think she is oriented. OBJECTIVE: VITAL SIGNS: Blood pressure 103/54, pulse 68, regular. LUNGS: Clear. CARDIAC: Normal S1 and normal S2. ABDOMEN: Soft, nontender. EXTREMITIES: There is no significant edema. PERTINENT LABORATORY DATA: Patient's hemoglobin is 8.1 and potassium is 3.7. The patient is not on beta-blockers, but continues to have sinus pauses. ASSESSMENT: 1. Sick sinus syndrome with history of bradycardia, now recurrent bradycardia. 2. Pacemaker had to be removed due to infection. 3. Hypotension, intermittent. 4. Concern for recurrent Staph infection. 5. Clostridium difficile infection. At this time, prognosis is guarded to poor. Unfortunately, there appears to be high risk of reinfect ion of the pacemaker to get reimplanted that was removed in October. We will go ahead and order bloo d cultures today to see if she has any evidence of sepsis. There is really no good option that appear s for this unfortunate patient.
[2018-01-30] MEDS: Atorvastatin Calcium 10 MG TAB PO SCH (20:51)
[2018-01-30] MEDS: Dextrose 50% Abboject 50 ML SYRINGE SLOW IVP PRN (21:36)
[2018-01-30] MEDS ORDERED: Magnesium 2 GM/NS 0.9% 50 ML 2 GM in Premix Bag 1 BAG IVPB SCH (22:00)
[2018-01-31] MEDS ORDERED: Dextrose 50% Abboject 50 ML SYRINGE ONE ×2 (03:00→16:12)
[2018-01-31] MEDS ORDERED: Ventilator Sedation Protocol 1 EACH FS SCH (03:21)
[2018-01-31] MEDS ORDERED: Lorazepam 2 MG/ML VIAL SLOW IVP PRN (03:31)
[2018-01-31] MEDS ORDERED: DISCONTINUE PREVIOUS NARCOTIC PAIN MEDICATIONS AND BENZODIAZEPINES FS SCH (03:31)
[2018-01-31] MEDS ORDERED: Morphine 2 MG/ML SYRINGE SLOW IVP PRN (03:31)
[2018-01-31] MEDS ORDERED: Fentanyl BOLUS 250 ML IVPB PRN (03:31)
[2018-01-31] MEDS ORDERED: fentaNYL Citrate/PF 2,000 MCG in Sodium Chloride 0.9% 60 ML IV SCH (03:33)
--- NOTE | 2018-01-31 03:35 | PDOC.EVN ---
Event Note - Event Note Event Note: Code yoana called. Upon arrival to room patient apneic and being bagged. BP 140's. Glucose < 70 , 1 amp D50 given. +pulse. Decision made to intubated. 20 mg etomidate given. Intubated with 7.5 on first pass. Transported to . Upon review, h/o SSS s/p PM removal 2/2 recurrent infections. Per nurse rhythm suspicious for TdP earlier in the evening and s/p 2 g mag. CBC/CMP/mg/phos/inr/ ptt/abg/cxr ordered. Sedation ordered. Discussed with sound physician. If any HD instability or loss of access will place CVC, otherwise has good access currently.
[2018-01-31] MEDS ORDERED: Morphine 4 MG/ML VIAL SLOW IVP PRN (03:45)
[2018-01-31 03:46] LABS: ALT (SGPT) 8 U/L (8-55); AST (SGOT) 27 U/L (5-34); Albumin 2.1 g/dL (3.5-5.0); Alkaline Phosphatase 197 U/L (40-150); Anion Gap 14 mmol/L (10-20); BUN (Urea Nitrogen) 4 mg/dL (7.0-18.7); Bilirubin, Total 1.3 mg/dL (0.2-1.2); Calc. Creatinine Clearance 30 mL/min (70-130); Carbon Dioxide 19 mmol/L (22-29); Chloride 104 mmol/L (98-107); Estimated GFR-MDRD 17; Glucose 131 mg/dL (70-105); Magnesium 2.1 mg/dL (1.6-2.6); Phosphorus 2.1 mg/dL (2.3-4.7); Potassium 4.4 mmol/L (3.5-5.1); Protein, Total 7.1 g/dL (6.0-8.3); Sodium 133 mmol/L (136-145)
[2018-01-31 03:52] LABS: Troponin I Less than 0.010 ng/mL (< 0.028)
[2018-01-31 03:57] LABS: INR-International Normal Ratio 2.1; PTT 53.9 SEC (22.9-36.1)
[2018-01-31] MEDS: Propofol 1,000 MG/100 ML VIAL IV PRN ×3 (03:57→22:47)
[2018-01-31 04:22] LABS: Actual Bicarbonate (HCO3a) 18.9 mEq/L (22-26); Base Excess (BEa) -4.2 mEq/L (0 (+/-) 2.5); CO2 Tension 26.5 mmHg (35.0-45.0); Hematocrit-ABG 26.8 % (36.0-47.0); pH, Arterial 7.47 (7.35-7.45)
[2018-01-31 04:23] LABS: Calcium, Ionized 1.1 mmol/L (1.12-1.30); Hemoglobin (Hb) 6.9 g/dL (12.0-16.0); Puncture Site RBA
[2018-01-31 04:24] LABS: ALV-art Gradient 148.675 (0-20)
[2018-01-31 05:56] LABS: Anisocytosis SLIGHT = 6-15 cells (100X) (0-5/hpf); Band 5 % (5-11); Eosinophils 1 % (0-10); Hemoglobin 8.1 g/dL (12.0-16.0); Hypochromia SLIGHT = 6-15 cells (100X) (0-5/hpf); Lymphocytes 14 % (21-51); MDiff Complete? YES; Mean Corpuscular HGB CONC 29.6 g/dL (32.0-36.0); Mean Corpuscular Hemoglobin 28.6 pg (27.0-31.0); Mean Corpuscular Volume 96.5 fl (81.0-99.0); Mean Platelet Volume 10.9 fL (7.4-10.4); Metamyelocyte 1 % (0-0); Monocytes 2 % (0-10); Neutrophil 77 % (42-75); PLT Morphology Comment Appears Decreased; Platelet Count 78 thou/uL (130-400); RBC Distribution Width 18.8 % (11.5-14.5); Red Blood Cell (RBC) Count 2.83 mill/uL (4.20-5.40); Schistocytes SLIGHT = 2-5 cells (100X) (0-1/hpf); Spherocytes SLIGHT = 1-5 cells (100X) (None Seen); White Blood Cell (WBC) Count 16.7 thou/uL (4.8-10.8)
--- NOTE | 2018-01-31 08:19 | RAD ---
CHEST ONE VIEW: History: Status post intubation. Comparison: 12-12-17 FINDINGS: Endotracheal tube at the level of the rashad. Repositioning is recommended. Nasogastric tube extends beyond the diaphragm. Enlarged cardiac silhouette. Lung volumes are diminished. Patchy interstitial a nd alveolar opacities. No pneumothorax. IMPRESSION: Endotracheal tube at the level of the rashad. Repositioning is recommended. Results of study angelo nettles with Tanisha, patient's nurse, at 7:41 a.m. 01-31-18. POS: [facility]
[2018-01-31 08:28] LABS: pH, Arterial 7.56 (7.35-7.45)
[2018-01-31 08:29] LABS: Actual Bicarbonate (HCO3a) 20.1 mEq/L (22-26); Base Excess (BEa) -1.8 mEq/L (0 (+/-) 2.5); Calcium, Ionized 1.1 mmol/L (1.12-1.30); Hemoglobin (Hb) 6.9 g/dL (12.0-16.0); O2 Tension (PaO2) 148.7 mmHg (80.0-100.0)
[2018-01-31 08:30] LABS: Puncture Site RR
[2018-01-31] MEDS: Vancomycin HCl 25 MG/ML Oral PO SCH ×4 (09:00→21:50)
[2018-01-31] MEDS: Citalopram 20 MG TAB PO SCH (09:00)
[2018-01-31] MEDS: Midodrine HCl 5 MG TAB PO SCH ×3 (09:00→21:50)
[2018-01-31] MEDS: metroNIDAZOLE 500 MG TAB PO SCH ×3 (09:00→21:50)
--- NOTE | 2018-01-31 11:44 | PRG ---
DATE OF SERVICE: 01/31/2018 RENAL MEDICINE SUBJECTIVE: Ms. Joseph is a 47-year-old female with ESRD - on maintenance hemodialysis an d went into acute respiratory arrest last night. She was said to have been coded and intubated. Cur rently, she is in the ICU. She also developed sinus pauses during the arrest. She has declined to h ave a pacemaker or an AICD placed. She had a previous pacemaker that was placed and this developed v egetation and was pulled out. This morning she is arousable, intubated on ventilator support. PHYSICAL EXAMINATION: VITAL SIGNS: Blood pressure is 104/58, heart rate 68, respiratory rate 19, pulse ox 100%. GENERAL: Arousable, intubated on ventilator support, not in distress. SKIN: Adequate turgor. HEENT: Slightly pale conjunctivae, anicteric sclerae. NECK: No neck mass, no carotid bruits, no JVD. CHEST: No deformities. LUNGS: Decreased breath sounds. HEART: Normal sinus rhythm. No murmurs, no gallops, no rubs. ABDOMEN: Globular, soft, nontender. EXTREMITIES: Status post leg amputation. MEDICATIONS: Medications of 01/31/2018 reviewed. LABORATORY DATA: Laboratories of 01/31/2018; white count 16.7, hemoglobin 8.1. Sodium 133, potassiu m 4.4, chloride 104, carbon dioxide 19, BUN 4, creatinine 2.96, calcium is 8, phosphorus is 2.1. ASSESSMENT AND PLAN: 1. End-stage due to the recent hemodynamic instability, my bias is probably to hold off dialysis wit h this patient. She is noted to be normokalemic and she is not in volume overload per se. I will di scuss this with the dialysis nurse. I will reevaluate her again tomorrow. 2. Status post cardiac arrest/respiratory arrest - palliative care to be consulted. The daughter is unable to make a decision regarding code status. We will have to get in touch with her who may or may not be available. 3. Anemia, on weekly Epogen. Overall, prognosis remains poor with this patient.
--- NOTE | 2018-01-31 12:25 | CON ---
DATE OF CONSULTATION: 01/31/2018 This is 45 minutes of critical care time. REASON FOR CONSULTATION: Ventilator management and CCU management. HISTORY OF PRESENT ILLNESS: Documentation is scarce on the chart, but my understanding is that the p atient developed torsades last night. Merary lees was called. The patient was intubated. I am not ceja re whether or not she had any type of cardioversion. She is currently on mechanical ventilation. Sh e will wake up. She does follow some commands and move around. The rest of the information I have is gathered from reviewing the records, she was originally admitted on 01/24/2018 to the Hospitalist group by Dr. Cordoba. At that time she had been vomiting blood that started the day before admission. She was subsequently seen by Dr. Duke from GI. She underwent EGD which showed 4 ulcers of various sizes along the greater curvature of the stomach, grade C erosive esophagitis and retained gastric co ntents in the fundus and antrum. There does not appear to have been any type of sclerotherapy or inj ection therapy needed for this. A biopsy of the lesions demonstrated no evidence of cancer and no H. pylori. She also has chronic renal failure and has been receiving intermittent hemodialysis by Dr. Laboy during the admission. She has had some difficulties with hypokalemia. Her hospitalist note yest mike indicates that a pacemaker was being discussed, but there was a note about the patient not want ing it, but also mentioned the patient was lethargic. Palliative Care had been consulted to discuss, I do not know what came from that. PAST MEDICAL HISTORY: 1. End-stage renal disease requiring hemodialysis. 2. Gastrointestinal bleeding. 3. Diabetes mellitus type 2. 4. Hypertension. 5. Hyperlipidemia. 6. Gastroparesis. 7. Seizure disorder. 8. Intermittent symptomatic bradycardia. 9. Infected pacemaker wire with vegetation. 10. Previous cardiac arrest secondary to hyperkalemia. 11. Chronic left eye blindness. 12. Peripheral vascular disease. 13. Below the knee amputation. 14. Gastroesophageal reflux. 15. Chronic pain. 16. Bilateral tubal ligation. PSYCHIATRIC HISTORY: Remarkable for anxiety, depression, bipolar disorder. ALLERGIES: None. SOCIAL HISTORY: Nonsmoker, does not consume alcohol, does not use illicit drugs. MEDICATIONS PRIOR TO ADMISSION: Metoprolol, phenytoin, citalopram, clonidine, Zofran, aspirin, vitam in D3, Phoslyra and Bactrim. CURRENT INPATIENT MEDICATIONS: Vancomycin orally for C. diff colitis, Dilantin, Protonix, morphine, midodrine, Flagyl, Ativan, Humalog insulin, fentanyl, Catapres, Celexa, Dulcolax, Lipitor, Tylenol. REVIEW OF SYSTEMS: Twelve point review of systems cannot be obtained as the patient is intubated on mechanical ventilation. PHYSICAL EXAMINATION: VITAL SIGNS: Temperature 99.1, pulse 68, blood pressure 95/41. She is currently on a propofol drip. Total intake for the last 24 hours 1098, output 0. HEENT: She has a large cataract left eye. Right pupil 4 mm reactive, sclerae anicteric. Oropharynx clear. NECK: No JVD. LUNGS: Clear to auscultation without wheezing or rhonchi. CARDIAC: S1, S2 regular, without murmur, rub or gallop. ABDOMEN: Soft and nontender. EXTREMITIES: Chronic stasis edema noted in the arms. Severe muscle wasting in the legs. X-RAYS: Chest x-ray shows cardiomegaly. Endotracheal tube was about 1.5 cm above the rashad. Lung izquierdo are fairly clear except for some cephalization of flow with apices. LABORATORY: White blood cell count 16.7, hematocrit 27.3, platelet count 78. INR 2.1, pH 7.56, pCO2 23, pO2 of 148 on SIMV rate 18, tidal volume 500, PEEP 5, pressure support 10, FiO2 40%. Sodium 133 , potassium 4.4, chloride 104, CO2 of 19, BUN 4, creatinine 2.9, glucose 131. ASSESSMENT: 1. Status post cardiac arrest from torsades. 2. Acute respiratory failure requiring mechanical ventilation. 3. Chronic renal failure. 4. History of intermittent bradycardia. 5. Clostridium difficile colitis. PLAN: 1. The patient is continuing oral vancomycin and Flagyl. 2. Continue support with mechanical ventilation until we have better idea of how the family wants to proceed. In reading the notes, it sounds like the patient has a very poor functional status and is probably not going to do well in the short term. I think palliative care is definitely indicated. 3. If the family decides they want to continue with aggressive care, then the patient is probably lo oking being extubated as early as tomorrow, if she is not, then we will have to consider enteral tube feeds. 4. I have reviewed the orders in the chart. 5. As far as the end of life issues, I will be much more comfortable with the doctors that know her discussing this with the family.
[2018-01-31] MEDS: Sodium Chloride 0.9% 1,000 ML IV SCH (13:36)
--- NOTE | 2018-01-31 17:11 | PDOC.PN ---
- Subjective Encounter Start Date: 01/31/18 Encounter Start Time: 13:00 Subjective: pt is intubated - Objective Vital Signs & Weight: Vital Signs (12 hours) Temp Pulse Resp BP Pulse Ox 01/31/18 16:00 98.6 F 18 01/31/18 15:00 98.6 F 01/31/18 14:50 65 93/41 L 01/31/18 14:00 21 H 01/31/18 12:00 98.6 F 12 01/31/18 11:13 65 97/44 L 01/31/18 11:00 98.6 F 01/31/18 10:00 17 01/31/18 08:10 68 104/58 L 01/31/18 08:00 99.2 F 68 12 100 01/31/18 06:00 25 H Weight Admit Weight 176 lb Weight 176 lb 2.389 oz Most Recent Monitor Data Heart Rate from ECG 64 NIBP 97/50 NIBP BP-Mean 77 Respiration from ECG 12 SpO2 100 I&O: 01/30/18 01/31/18 02/01/18 06:59 06:59 06:59 Intake Total 1490 1098.5 Output Total 100 600 Balance 1390 1098.5 -600 Result Diagrams: 01/31/18 05:13 01/31/18 03:19 Additional Labs: Accuchecks 01/31/18 01/31/18 01/30/18 09:52 03:00 21:29 POC Glucose 94 68 L 59 L* Phys Exam - Physical Examination HEENT: PERRLA Neck: no nodes mild rales Cardiovascular: RRR, no significant murmur Gastrointestinal: soft Musculoskeletal: no edema Dx/Plan - Plan acute resp failure Cardiac arrthymia htn diabetes PVD ESRD plan: pt * . (1) HTN (hypertension) Code(s): I10 - ESSENTIAL (PRIMARY) HYPERTENSION Status: Acute Comment: BP has been low. BP med on hold. Patient is not symptomatic . (2) Diabetes Code(s): E11.9 - TYPE 2 DIABETES MELLITUS WITHOUT COMPLICATIONS Status: Acute Comment: BS is satisfactory.. (3) PVD (peripheral vascular disease) Code(s): I73.9 - PERIPHERAL VASCULAR DISEASE, UNSPECIFIED Status: Acute (4) Clostridium difficile diarrhea Code(s): A04.72 - ENTEROCOLITIS D/T CLOSTRIDIUM DIFFICILE, NOT SPCF RECUR Status: Acute Plan: Diarrhea has improved. Continue Vancomycin, Flagyl. (5) Dyslipidemia Code(s): E78.5 - HYPERLIPIDEMIA, UNSPECIFIED Status: Chronic (6) ESRD (end stage renal disease) on dialysis Code(s): N18.6 - END STAGE RENAL DISEASE; Z99.2 - DEPENDENCE ON RENAL DIALYSIS Status: Chronic Comment: HB/HCT is low. On Erythropoietin.. f/u hb/hct. (7) Upper GI bleeding Code(s): K92.2 - GASTROINTESTINAL HEMORRHAGE, UNSPECIFIED Status: Acute Comment: s/p EGD. f/u hb/hct. - Plan -: Continue current therapy. -: Cardio on board. Reviewed note. -: d/w Pt this am about pacemaker pt doesn't want it but pt currently appears lethargic. D/W palliative care. Has family meeting probably today. Attempted to call pt daughter mei at [phone] not [facility] to reach her Hold bp meds for now Review of Systems - Review of Systems Other: unable to perform - Medications/Allergies Allergies/Adverse Reactions: Allergies Allergy/AdvReac Type Severity Reaction Status Date / Time No Known Drug Allergies Allergy Verified 11/03/17 11:31 Medications: Current Medications Acetaminophen (Tylenol) 650 mg PO Q4H PRN PRN Reason: Headache/Fever or Pain Last Admin: 01/28/18 16:37 Dose: 650 mg Acetaminophen (Tylenol) 650 mg ID Q4H PRN PRN Reason: Headache/Fever or Pain Atorvastatin Calcium (Lipitor) 10 mg PO HS [facility] Last Admin: 01/30/18 20:51 Dose: 10 mg Bisacodyl (Dulcolax) 10 mg PO DAILYPRN PRN PRN Reason: Constipation Citalopram Hydrobromide (Celexa) 20 mg PO DAILY [facility] Last Admin: 01/31/18 09:00 Dose: 20 mg Clonidine (Catapres) 0.1 mg PO BID PRN PRN Reason: SBP Greater Than 170 Dextrose/Water (Dextrose 50%) 25 gm SLOW IVP PRN PRN PRN Reason: Hypoglycemia Last Admin: 01/30/18 21:36 Dose: 25 gm Epoetin Robbi (Procrit) 10,000 units SC Q7D [facility] Last Admin: 01/24/18 21:32 Dose: 10,000 units Glucagon (Glucagon) 1 mg IM PRN PRN PRN Reason: Hypoglycemia Dextrose/Water (D5w) 1,000 mls @ 0 mls/hr IV .Q0M PRN; As Directed PRN Reason: Hypoglycemia Sodium Chloride (Normal Saline 0.9%) 1,000 mls @ 50 mls/hr IV .Q20H [facility]EENA Last Admin: 01/31/18 13:36 Dose: 1,000 mls Fentanyl Citrate (Fentanyl Bolus) 250 mls @ 0 mls/hr IVPB PRN PRN; As Directed PRN Reason: Breakthrough pain Stop: 03/02/18 03:31 Fentanyl Citrate 2,000 mcg/ (Sodium Chloride) 100 mls @ 0 mls/hr IV INF TEENA; Per Protocol PRN Reason: Protocol Stop: 03/02/18 03:33 Insulin Human Lispro (Humalog) 0 units SC .MILD SLIDING SCALE PRN PRN Reason: Mild Correctional Scale Lorazepam (Ativan) 2 mg SLOW IVP Q2H PRN PRN Reason: Anxiety to achieve Moya 2-3 Stop: 03/02/18 03:31 Metronidazole (Flagyl) 500 mg PO TID [facility] Last Admin: 01/31/18 14:48 Dose: 500 mg Midodrine (Proamatine) 10 mg PO TID [facility] Last Admin: 01/31/18 14:48 Dose: 10 mg Morphine Sulfate (Morphine) 2 mg SLOW IVP Q2H PRN PRN Reason: Breakthrough pain Stop: 03/02/18 03:31 Ondansetron HCl (Zofran) 4 mg IVP Q6H PRN PRN Reason: Nausea/Vomiting Last Admin: 01/30/18 11:36 Dose: 4 mg Pantoprazole Sodium (Protonix) 40 mg PO BID [facility] Last Admin: 01/31/18 09:00 Dose: 40 mg Phenytoin Sodium (Dilantin Er) 300 mg PO HS [facility] Last Admin: 01/30/18 20:51 Dose: 300 mg Propofol (Diprivan) 1,000 mg IV INF PRN; Protocol PRN Reason: TO ACHIEVE MOYA SCORE 2-3 Stop: 03/02/18 03:31 Last Admin: 01/31/18 13:39 Dose: 1,000 mg Sodium Chloride (Flush - Normal Saline) 10 ml IVF Q12HR [facility] Last Admin: 01/31/18 09:00 Dose: 10 ml Sodium Chloride (Flush - Normal Saline) 10 ml IVF PRN PRN PRN Reason: Saline Flush Vancomycin HCl (First Vancomycin) 125 mg PO QID [facility] Last Admin: 01/31/18 16:44 Dose: 125 mg
[2018-01-31] MEDS: Epoetin (ESRD) 10,000 UNITS/ML VIAL SC SCH (17:21)
--- NOTE | 2018-01-31 17:42 | PRG ---
DATE OF SERVICE: 01/31/2018 SUBJECTIVE: Ms. Joseph is intubated on the ventilator, required emergency intubation last night. Unable to give any history. Obviously, she is on the ventilator. The patient had GI bleed, required intubation. PHYSICAL EXAMINATION: VITAL SIGNS: Blood pressure now is in the 90s and pulse 60s. LUNGS: Clear. CARDIAC: Normal S1, S2. ABDOMEN: Soft, nontender. EXTREMITIES: No edema. ASSESSMENT: 1. Status post cardiac arrest. There is some mention of there being torsades. 2. Intermittent sinus bradycardia. 3. Previous pacemaker lead infection device had to be removed. She has 6.3 second pauses previously , this is really not preceded by significant bradycardia. PLAN: Palliative Care consult. The prognosis is very poor in this unfortunate patient. Continue ceja pportive care for now.
[2018-01-31] MEDS ORDERED: Pantoprazole 40 MG GRANULES PACKET PO SCH (21:45)
[2018-01-31] MEDS: Atorvastatin Calcium 10 MG TAB PO SCH (21:50)
[2018-02-01] MEDS: Dextrose 50% Abboject 50 ML SYRINGE SLOW IVP PRN (05:11)
[2018-02-01 06:16] LABS: #Basophils 0.1 thou/uL (0.0-0.2); #Eosinphils 0.2 thou/uL (0.0-0.7); #Lymphocytes 2.6 thou/uL (1.20-3.40); #Monocytes 0.3 thou/uL (0.11-0.59); #Neutrophils 4.9 thou/uL (1.40-6.50); %Basophils 0.8 % (0.0-1.0); %Eosinophils 3.1 % (0.0-10.0); %Lymphocytes 31.8 % (21.0-51.0); %Monocytes 3.6 % (0.0-10.0); %Neutrophils 60.7 % (42.0-75.0); Hemoglobin 7.5 g/dL (12.0-16.0); Mean Corpuscular HGB CONC 30.4 g/dL (32.0-36.0); Mean Corpuscular Volume 95.6 fl (81.0-99.0); Mean Platelet Volume 5.9 fL (7.4-10.4); Platelet Count 60 thou/uL (130-400); RBC Distribution Width 18.7 % (11.5-14.5); Red Blood Cell (RBC) Count 2.57 mill/uL (4.20-5.40); White Blood Cell (WBC) Count 8.1 thou/uL (4.8-10.8)
[2018-02-01 06:25] LABS: Anion Gap 11 mmol/L (10-20); BUN (Urea Nitrogen) 5 mg/dL (7.0-18.7); Calc. Creatinine Clearance 25 mL/min (70-130); Calcium 7.8 mg/dL (7.8-10.44); Carbon Dioxide 20 mmol/L (22-29); Chloride 106 mmol/L (98-107); Estimated GFR-MDRD 14; Glucose 139 mg/dL (70-105); Potassium 3.3 mmol/L (3.5-5.1); Sodium 134 mmol/L (136-145)
[2018-02-01 07:43] LABS: Puncture Site LRA
[2018-02-01 07:44] LABS: pH, Arterial 7.52 (7.35-7.45)
[2018-02-01 07:45] LABS: ALV-art Gradient 128.425 (0-20); Actual Bicarbonate (HCO3a) 20.2 mEq/L (22-26); Base Excess (BEa) -2.3 mEq/L (0 (+/-) 2.5); CO2 Tension 25.9 mmHg (35.0-45.0); Hematocrit-ABG 24.3 % (36.0-47.0); Hemoglobin (Hb) 6.7 g/dL (12.0-16.0); O2 Tension (PaO2) 124.4 mmHg (80.0-100.0)
--- NOTE | 2018-02-01 07:46 | RAD ---
SINGLE VIEW CHEST: Date: 02/01/18 COMPARISON: 01/31/18. HISTORY: Ventilated patient with respiratory failure. FINDINGS: Single view of the chest shows an enlarged but stable cardiomediastinal silhouette. Endotracheal tube and NG tube are unchanged in position. There is obscurity of the left hemidiaphragm which may repres ent a small left pleural effusion. IMPRESSION: 1. Possible small left pleural effusion. 2. Cardiomegaly. POS: [facility]
--- NOTE | 2018-02-01 08:08 | EKG ---
Test Reason : Blood Pressure : / mmHG Vent. Rate : 067 BPM Atrial Rate : 067 BPM P-R Int : 198 ms QRS Dur : 098 ms QT Int : 432 ms P-R-T Axes : 070 071 246 degrees QTc Int : 456 ms Normal sinus rhythm T wave abnormality, consider inferolateral ischemia Abnormal ECG Confirmed by LIZZETTE PELLETIER ([id number]) on 02/01/2018 8:07:49 AM Referred By: Confirmed By:LIZZETTE PELLETIER
--- NOTE | 2018-02-01 08:45 | PRG ---
DATE OF SERVICE: 02/01/2018 Thirty-five minute critical care time. The patient remains intubated on mechanical ventilation. Neurologically, she will turn her head to v oice. She may be squeezing some with the right hand, I cannot get her to follow any other commands s pecifically. PHYSICAL EXAMINATION: VITAL SIGNS: Temperature is 98.5, pulse 63, blood pressure 101/48, O2 sat 100%, 24 intake 854, outpu t 800. HEENT: She has a cataract on her left. NECK: No JVD. LUNGS: Clear anteriorly. CARDIOVASCULAR: S1 and S2 regular, without murmur. ABDOMEN: Soft, nontender. EXTREMITIES: She has a finger amputation on the right. She has a left jobly-aby-vaio amputation, sh e has a partial amputation of the right foot. Chest x-ray shows that the endotracheal tube is about 2 cm above the rashad. She has cardiomegaly, no infiltrates. LABORATORY DATA: Sodium 134, potassium 3.3, chloride 106, CO2 of 20, BUN 5, creatinine 3.6, glucose 139, pH 7.52, pCO2 24, pO2 124, SIMV rate 12, tidal volume 500, PEEP 5, pressure support 10, FiO2 40% . White blood cell count 8.1, hematocrit 24.6, platelet count 60. ASSESSMENT: 1. Status post cardiac arrest. 2. Acute respiratory failure requiring mechanical ventilation. 3. Multiple medical problems including end-stage renal failure, symptomatic bradycardia, C. difficil e colitis. PLAN: It is very important that the family understand that the patient's prognosis is dismal and the re seems to be little that can be done from a cardiac standpoint to fix the situation. I would advoc ate letting the Palliative Care Service and the primary care service discussed with the family julio francis and then hopefully putting a DNR order on the chart before proceeding with extubation. Extu bation would likely be a terminal event in this case.
[2018-02-01] MEDS: metroNIDAZOLE 500 MG TAB PO SCH ×3 (08:54→20:38)
[2018-02-01] MEDS: Midodrine HCl 5 MG TAB PO SCH ×3 (08:54→20:38)
[2018-02-01] MEDS: Vancomycin HCl 25 MG/ML Oral PO SCH ×4 (08:54→20:39)
[2018-02-01] MEDS: Citalopram 20 MG TAB PO SCH (08:54)
[2018-02-01] MEDS: Pantoprazole 40 MG GRANULES PACKET PO SCH ×2 (08:55→20:38)
--- NOTE | 2018-02-01 09:30 | PRG ---
DATE OF SERVICE: 02/01/2018. SUBJECTIVE: Ms. Joseph is a 47-year-old female with ESRD. The patient underwent a cardio respiratory arrest the day before. Currently intubated on ventilator support. She is mentating adeq uately. She can follow commands. A discussion about palliative care/hospice is being done with the family. They will have a meeting t omorrow. I held off the dialysis yesterday due to the low blood pressure. Currently, the patient is still intubated on ventilator support. PHYSICAL EXAMINATION: VITAL SIGNS: Blood pressure this 119/56, heart rate 64, respiratory rate 19, pulse ox 100%. GENERAL: Awake, alert, comfortable, not in distress. SKIN: Adequate turgor. HEENT: She has slightly pale conjunctivae, anicteric sclerae. NECK: No neck mass, no carotid bruits, no JVD. CHEST: No deformities. LUNGS: Decreased breath sounds. HEART: Normal sinus rhythm. No murmur, no gallops, no rubs. ABDOMEN: Globular, soft, nontender, no masses. EXTREMITIES: No edema. Status post leg amputation. MEDICATIONS: 02/01/2018 - Reviewed. LABORATORY: 02/01/2018 - White count 8.1, hemoglobin 7.5. Sodium 134, potassium 3.3, chloride 106, carbon dioxide 20, BUN 5, creatinine 3.58, glucose 139, calcium 7.8. ASSESSMENT AND PLAN: 1. End-stage renal disease - stable. Holding off dialysis. We will continue to hold off dialysis f or today. We will reevaluate in a.m. The family is deciding whether to continue current care or rebecca ce the patient on hospice. They will have a meeting tomorrow. I do not see any emergent indication for dialytic intervention at the present time. 2. Anemia, continuing weekly Epogen. 3. Hypertension, much improved. Continue midodrine.
[2018-02-01] MEDS: Metoclopramide 10 MG/10 ML UDCUP PER TUBE SCH ×3 (11:43→20:39)
[2018-02-01] MEDS: Dextrose 5 % And 0.9 % NaCl 1,000 ML IV SCH (11:45)
[2018-02-01] MEDS: Atorvastatin Calcium 10 MG TAB PO SCH (20:38)
--- NOTE | 2018-02-01 22:05 | PDOC.PN ---
- Subjective Encounter Start Date: 02/01/18 Encounter Start Time: 11:00 Subjective: pt is intubated but awake - Objective Vital Signs & Weight: Vital Signs (12 hours) Temp Pulse Resp BP 02/01/18 20:00 98.6 F 02/01/18 18:58 66 89/31 L 02/01/18 18:00 24 H 02/01/18 16:00 17 02/01/18 15:00 99.5 F 02/01/18 14:48 63 98/34 L 02/01/18 14:00 15 02/01/18 12:00 98.6 F 15 02/01/18 11:00 66 82/37 L Weight Admit Weight 176 lb Weight 177 lb 0.499 oz Most Recent Monitor Data Heart Rate from ECG 67 NIBP 102/30 NIBP BP-Mean 49 Respiration from ECG 12 SpO2 100 I&O: 01/31/18 02/01/18 02/02/18 06:59 06:59 06:59 Intake Total 1098.5 854 1059 Output Total 800 600 Balance 1098.5 54 459 Result Diagrams: 02/01/18 05:29 02/02/18 06:13 Additional Labs: Accuchecks 02/01/18 02/01/18 02/01/18 20:52 15:30 11:51 POC Glucose 73 80 80 01/31/18 01/31/18 01/31/18 22:39 16:44 16:13 POC Glucose 79 128 H 57 L* Phys Exam - Physical Examination Respiratory: wheezing present Cardiovascular: RRR, no significant murmur, no rub, gallop, irregular Gastrointestinal: soft (mild distention, bsx2) Musculoskeletal: edema present Dx/Plan - Plan acute resp failure Cardiac arrthymia htn diabetes PVD ESRD plan: pt * . (1) HTN (hypertension) Code(s): I10 - ESSENTIAL (PRIMARY) HYPERTENSION Status: Acute Comment: BP has been low. BP med on hold. Patient is not symptomatic . (2) Diabetes Code(s): E11.9 - TYPE 2 DIABETES MELLITUS WITHOUT COMPLICATIONS Status: Acute Comment: BS is satisfactory.. pt has gastroparesis pt now on regaln for large retained tube feeding. (3) PVD (peripheral vascular disease) Code(s): I73.9 - PERIPHERAL VASCULAR DISEASE, UNSPECIFIED Status: Acute (4) Clostridium difficile diarrhea Code(s): A04.72 - ENTEROCOLITIS D/T CLOSTRIDIUM DIFFICILE, NOT SPCF RECUR Status: Acute Plan: Diarrhea stable Continue Vancomycin, Flagyl. (5) Dyslipidemia Code(s): E78.5 - HYPERLIPIDEMIA, UNSPECIFIED Status: Chronic (6) ESRD (end stage renal disease) on dialysis Code(s): N18.6 - END STAGE RENAL DISEASE; Z99.2 - DEPENDENCE ON RENAL DIALYSIS Status: Chronic Comment: HB/HCT is low. On Erythropoietin.. f/u hb/hct. (7) Upper GI bleeding Code(s): K92.2 - GASTROINTESTINAL HEMORRHAGE, UNSPECIFIED Status: Acute Comment: s/p EGD. f/u hb/hct. - Plan -: Continue current therapy. -: Cardio on board. Reviewed note. -: d/w Pt this am about pacemaker pt doesn't want it but pt currently appears lethargic. D/W palliative care. Has family meeting probably today. Attempt[facility] to [facility] pt [phone] Hold bp meds for now * . Review of Systems - Review of Systems Other: unable to participate - Medications/Allergies Allergies/Adverse Reactions: Allergies Allergy/AdvReac Type Severity Reaction Status Date / Time No Known Drug Allergies Allergy Verified 11/03/17 11:31 Medications: Current Medications Acetaminophen (Tylenol) 650 mg PO Q4H PRN PRN Reason: Headache/Fever or Pain Last Admin: 01/28/18 16:37 Dose: 650 mg Acetaminophen (Tylenol) 650 mg [place] Q4H PRN PRN Reason: Headache/Fever or Pain Atorvastatin Calcium (Lipitor) 10 mg PO HS [facility] Last Admin: 02/01/18 20:38 Dose: 10 mg Bisacodyl (Dulcolax) 10 mg PO DAILYPRN PRN PRN Reason: Constipation Citalopram Hydrobromide (Celexa) 20 mg PO DAILY [facility] Last Admin: 02/02/18 09:18 Dose: 20 mg Clonidine (Catapres) 0.1 mg PO BID PRN PRN Reason: SBP Greater Than 170 Dextrose/Water (Dextrose 50%) 25 gm SLOW IVP PRN PRN PRN Reason: Hypoglycemia Last Admin: 02/02/18 05:40 Dose: 25 gm Epoetin Robbi (Procrit) 10,000 units SC Q7D [facility] Last Admin: 01/31/18 17:21 Dose: 10,000 units Glucagon (Glucagon) 1 mg IM PRN PRN PRN Reason: Hypoglycemia Dextrose/Water (D5w) 1,000 mls @ 0 mls/hr IV .Q0M PRN; As Directed PRN Reason: Hypoglycemia Fentanyl Citrate 2,000 mcg/ (Sodium Chloride) 100 mls @ 0 mls/hr IV INF [facility]; Per Protocol PRN Reason: Protocol Stop: 03/02/18 03:33 Dextrose/Sodium Chloride (D5 0.9% Ns) 1,000 mls @ 50 mls/hr IV .Q20H [facility] Last Admin: 02/02/18 05:41 Dose: 1,000 mls Fentanyl Citrate (Fentanyl Bolus) 250 mls @ 0 mls/hr IVPB PRN PRN; As Directed PRN Reason: Breakthrough pain/agitation Stop: 03/04/18 09:41 Insulin Human Lispro (Humalog) 0 units SC .MILD SLIDING SCALE PRN PRN Reason: Mild Correctional Scale Lorazepam (Ativan) 2 mg SLOW IVP Q1H PRN PRN Reason: Breakthrough agitation Stop: 03/04/18 09:41 Metoclopramide HCl (Reglan) 10 mg PER TUBE Q6H [facility] Last Admin: 02/02/18 09:20 Dose: Not Given Metronidazole (Flagyl) 500 mg PO TID [facility] Last Admin: 02/02/18 15:36 Dose: 500 mg Midodrine (Proamatine) 10 mg PO TID [facility] Last Admin: 02/02/18 15:36 Dose: 10 mg Morphine Sulfate (Morphine) 2 mg SLOW IVP Q1H PRN PRN Reason: breakthrough pain/agitation Stop: 03/04/18 09:41 Ondansetron HCl (Zofran) 4 mg IVP Q6H PRN PRN Reason: Nausea/Vomiting Last Admin: 01/30/18 11:36 Dose: 4 mg Pantoprazole Sodium (Protonix) 40 mg PO BID [facility] Last Admin: 02/02/18 09:18 Dose: 40 mg Phenytoin Sodium (Dilantin) 300 mg PO HS [facility] Last Admin: 02/01/18 20:38 Dose: 300 mg Propofol (Diprivan) 1,000 mg IV INF PRN; Protocol PRN Reason: TO ACHIEVE GOAL RASS Stop: 03/04/18 09:41 Propofol (Diprivan Bolus) 20 mg IV Q5MIN PRN PRN Reason: BREAKTHROUGH AGITATION Stop: 03/04/18 09:41 Sodium Chloride (Flush - Normal Saline) 10 ml IVF Q12HR [facility] Last Admin: 02/02/18 09:18 Dose: Not Given Sodium Chloride (Flush - Normal Saline) 10 ml IVF PRN PRN PRN Reason: Saline Flush Vancomycin HCl (First Vancomycin) 125 mg PO QID [facility] Last Admin: 02/02/18 12:29 Dose: 125 mg
[2018-02-02] MEDS: Metoclopramide 10 MG/10 ML UDCUP PER TUBE SCH ×3 (03:35→09:20)
[2018-02-02] MEDS: Dextrose 50% Abboject 50 ML SYRINGE SLOW IVP PRN (05:40)
[2018-02-02] MEDS: Dextrose 5 % And 0.9 % NaCl 1,000 ML IV SCH ×2 (05:41→23:43)
[2018-02-02 07:13] LABS: Puncture Site RRA
[2018-02-02 07:15] LABS: ALV-art Gradient 106.325 (0-20); Actual Bicarbonate (HCO3a) 19.3 mEq/L (22-26); Base Excess (BEa) -4.2 mEq/L (0 (+/-) 2.5); CO2 Tension 28.3 mmHg (35.0-45.0); Hematocrit-ABG 21.8 % (36.0-47.0); Hemoglobin (Hb) 6.2 g/dL (12.0-16.0); O2 Tension (PaO2) 143.5 mmHg (80.0-100.0); pH, Arterial 7.45 (7.35-7.45)
--- NOTE | 2018-02-02 07:40 | RAD ---
SINGLE VIE WOF THE CHEST: COMPARISON: 02/01/18. HISTORY: Ventilated patient with respiratory failure. FINDINGS: A single view of the chest shows an enlarged cardiomediastinal silhouette. The lines and tubes are u nchanged in position. Increased interstitial markings are present. No change has occurred compared to the prior exam. IMPRESSION: Stable exam. POS: [facility]
--- NOTE | 2018-02-02 07:45 | PRG ---
DATE OF SERVICE: 02/02/2018 Thirty-five minutes critical care time. The patient remains intubated in the CCU. She will open her eyes to voice, but will not follow comma nds for me specifically. PHYSICAL EXAMINATION: VITAL SIGNS: Temperature is 99.4 with a T-max of 99.5, pulse 60, blood pressure 111/31. She is curr ently on no vasopressor. Total intake for the last 24 hours 1662, output 600. I do not see that she had dialysis, most of the output was gastric drainage. HEENT: She will open her eyes. She has a large cataract in the left eye. Oropharynx clear. NECK: No JVD. LUNGS: Clear to auscultation without wheezing or rhonchi. CARDIAC: S1, S2 regular, without murmur. ABDOMEN: Soft, nontender, nondistended. EXTREMITIES: She is missing 2 toes on the right foot. She has a left [id number] amputation. Chest x-ray demonstrates cardiomegaly. The film is turned. ET tube is in good position. There is s ome pulmonary vascular congestion. LABORATORY DATA: White blood cell count 8.1, hemoglobin 7.5, hematocrit 24.6, platelet count 60. IN R yesterday was 2.1, pH 7.45, pCO2 28, pO2 143 on SIMV rate 8, tidal volume 500, PEEP 5, pressure sup port 10, FiO2 40%. Sodium 134, potassium 3.3, chloride 106, CO2 of 20, BUN 5, creatinine 3.5, glucos e 139. ASSESSMENT: 1. Status post cardiac arrest. 2. End-stage renal disease requiring hemodialysis. 3. Acute respiratory failure requiring mechanical ventilation. 4. Multiple cardiac issues which would ordinarily necessitate a pacemaker placement for bradycardia, but she has had a recent infection in the past and is not deemed a candidate for repeat pacemaker pl acement. PLAN: Based on the summation of findings, I would say that palliative care, a DNR order and withdraw al of care would be in order. She seems to have no reasonable hope for functional recovery of life. We are continuing to have trouble with hypoglycemia. This is probably related to liver disease and depletion of glycogen storage. She is currently on D5 drip. We will attempt to try low dose tube fe eds, but I am not sure that will work. She is continuing antibiotic treatment for C. difficile colit is. Again, the overall prognosis is poor.
[2018-02-02 07:55] LABS: Anion Gap 13 mmol/L (10-20); BUN (Urea Nitrogen) 9 mg/dL (7.0-18.7); Calc. Creatinine Clearance 22 mL/min (70-130); Calcium 8.2 mg/dL (7.8-10.44); Carbon Dioxide 17 mmol/L (22-29); Chloride 107 mmol/L (98-107); Estimated GFR-MDRD 12; Glucose 118 mg/dL (70-105); Potassium 3.2 mmol/L (3.5-5.1); Sodium 134 mmol/L (136-145)
[2018-02-02] MEDS: Midodrine HCl 5 MG TAB PO SCH ×3 (09:18→21:16)
[2018-02-02] MEDS: Citalopram 20 MG TAB PO SCH (09:18)
[2018-02-02] MEDS: Pantoprazole 40 MG GRANULES PACKET PO SCH ×2 (09:18→21:16)
[2018-02-02] MEDS: metroNIDAZOLE 500 MG TAB PO SCH ×3 (09:18→21:16)
[2018-02-02] MEDS ORDERED: Fentanyl BOLUS 250 ML IVPB PRN (09:41)
[2018-02-02] MEDS ORDERED: Propofol 1,000 MG/100 ML VIAL IV PRN (09:41)
[2018-02-02] MEDS ORDERED: Propofol BOLUS 1,000 MG/100 ML VIAL IV PRN (09:41)
[2018-02-02] MEDS ORDERED: Morphine 4 MG/ML VIAL SLOW IVP PRN (09:41)
[2018-02-02] MEDS ORDERED: Lorazepam 2 MG/ML VIAL SLOW IVP PRN (09:41)
[2018-02-02] MEDS: Vancomycin HCl 25 MG/ML Oral PO SCH ×4 (09:48→21:16)
--- NOTE | 2018-02-02 10:00 | PRG ---
DATE OF SERVICE: 02/02/2018 SUBJECTIVE: Ms. Joseph is a 47-year-old female with ESRD and being followed up by the [facility] service for maintenance hemodialysis. Due to the low blood pressure, I have held off the dialysis in the last few days. The patient has developed acute cardiorespiratory arrest recently. She has b een noting to develop sinus process. It was recommended for her to have her pacemaker placed, but sh jocelyn declined. There will be a family meeting whether to pursue hospice with this patient or not. I burks d a long discussion with the son regarding her diagnosis and prognosis. No other complaints today. PHYSICAL EXAMINATION VITAL SIGNS: Blood pressure is 80/36 ranging to 111/31, heart rate 68, respiratory rate 16, pulse ox 100%. GENERAL: She is awake, intubated on ventilator support. SKIN: Adequate turgor. HEENT: She has slightly pale conjunctivae, anicteric sclerae. NECK: No neck mass, no carotid bruits, no JVD. CHEST: No deformities. LUNGS: Clear. Harsh breath sounds. HEART: Normal sinus rhythm. Grade 2/6 systolic murmur, no gallops or rubs. ABDOMEN: Globular, soft, nontender. EXTREMITIES: Status post leg amputation. MEDICATIONS: Of 02/02/2018 was reviewed. LABORATORY DATA: Of 02/01/2018, hemoglobin 7.5. On 02/02/2018, sodium 134, potassium 3.2, chloride 107, carbon dioxide 17, BUN 9, creatinine 4.1, calcium 8.2. ASSESSMENT AND PLAN: 1. End-stage renal disease, holding dialysis for the moment. The patient's family will have a gener al meeting with regards to whether to pursue with the further active treatment. Continue supportive care. Overall, prognosis remains poor with this patient. 2. Anemia, on weekly Epogen of 10,000 units subcutaneously every week. 3. Hypotension. Patient is on midodrine. My concern is this patient may not tolerate hemodialysis due to the low blood pressure. In the last several dialysis sessions, we have been giving her volume repletion. Overall, prognosis remains poor. The patient's family will have a group meeting to disc uss long-term plans.
--- NOTE | 2018-02-02 15:41 | PDOC.PN ---
- Subjective Encounter Start Date: 02/02/18 Encounter Start Time: 11:30 Subjective: pt intubated, awake - Objective Resuscitation Status: Resuscitation Status DNR:Do Not Resuscitate Vital Signs & Weight: Vital Signs (12 hours) Temp Pulse Resp BP Pulse Ox 02/02/18 14:40 66 97/36 L 02/02/18 14:00 12 02/02/18 12:00 97.9 F 14 02/02/18 10:35 66 99/40 L 02/02/18 10:00 13 02/02/18 08:00 98.3 F 67 15 100 02/02/18 06:28 68 80/36 L 02/02/18 06:00 16 02/02/18 04:00 99.4 F 20 Weight Admit Weight 176 lb Weight 177 lb 0.499 oz Most Recent Monitor Data Heart Rate from ECG 66 NIBP 95/38 NIBP BP-Mean 58 Respiration from ECG 17 SpO2 100 I&O: 02/01/18 02/02/18 02/03/18 06:59 06:59 06:59 Intake Total 854 1662 120 Output Total 800 600 Balance 54 1062 120 Result Diagrams: 02/01/18 05:29 02/02/18 06:13 Additional Labs: Accuchecks 02/02/18 02/02/18 02/02/18 10:41 06:18 05:40 POC Glucose 78 122 H 57 L* 02/01/18 02/01/18 02/01/18 20:52 15:30 11:51 POC Glucose 73 80 80 02/01/18 02/01/18 05:30 04:53 POC Glucose 139 H 64 L Phys Exam - Physical Examination HEENT: PERRLA, moist MMs, sclera anicteric, TM's clear, oral pharynx no lesions , 2+ tonsils Respiratory: wheezing present Cardiovascular: RRR, no significant murmur, no rub, gallop, irregular Gastrointestinal: soft, non-tender, no distention, positive bowel sounds Musculoskeletal: edema present Dx/Plan - Plan * . acute resp failure Cardiac arrthymia htn diabetes PVD ESRD plan: pt * . (1) HTN (hypertension) Code(s): I10 - ESSENTIAL (PRIMARY) HYPERTENSION Status: Acute Comment: BP has been low. BP med on hold. Patient is not symptomatic . (2) Diabetes Code(s): E11.9 - TYPE 2 DIABETES MELLITUS WITHOUT COMPLICATIONS Status: Acute Comment: BS is satisfactory.. (3) PVD (peripheral vascular disease) Code(s): I73.9 - PERIPHERAL VASCULAR DISEASE, UNSPECIFIED Status: Acute (4) Clostridium difficile diarrhea Code(s): A04.72 - ENTEROCOLITIS D/T CLOSTRIDIUM DIFFICILE, NOT SPCF RECUR Status: Acute Plan: Diarrhea worse pt on reglan asked nurse to hold for now. Pt was on reglan for gastroparesis Continue Vancomycin, Flagyl. (5) Dyslipidemia Code(s): E78.5 - HYPERLIPIDEMIA, UNSPECIFIED Status: Chronic (6) ESRD (end stage renal disease) on dialysis Code(s): N18.6 - END STAGE RENAL DISEASE; Z99.2 - DEPENDENCE ON RENAL DIALYSIS Status: Chronic Comment: HB/HCT is low. On Erythropoietin.. f/u hb/hct. (7) Upper GI bleeding Code(s): K92.2 - GASTROINTESTINAL HEMORRHAGE, UNSPECIFIED Status: Acute Comment: s/p EGD. f/u hb/hct. - Plan -: Continue current therapy. -: Cardio on board. Reviewed note. -: d/w Pt this am about pacemaker pt doesn't want it but pt currently appears lethargic. D/W palliative care. Has family meeting probably today. Attempted to call pt daughter mei at [phone] her Hold bp meds for now 02/02 Attended family meeting and updated and answered all question about pt's medical condition and prognosis. pt is now dnr. working on getting pt's son out of [facility] to visit her. Review of Systems - Review of Systems Other: unable to participate - Medications/Allergies Allergies/Adverse Reactions: Allergies Allergy/AdvReac Type Severity Reaction Status Date / Time No Known Drug Allergies Allergy Verified 11/03/17 11:31 Medications: Current Medications Acetaminophen (Tylenol) 650 mg PO Q4H PRN PRN Reason: Headache/Fever or Pain Last Admin: 01/28/18 16:37 Dose: 650 mg Acetaminophen (Tylenol) 650 mg [place] Q4H PRN PRN Reason: Headache/Fever or Pain Atorvastatin Calcium (Lipitor) 10 mg PO HS [facility] Last Admin: 02/01/18 20:38 Dose: 10 mg Bisacodyl (Dulcolax) 10 mg PO DAILYPRN PRN PRN Reason: Constipation Citalopram Hydrobromide (Celexa) 20 mg PO DAILY [facility] Last Admin: 02/02/18 09:18 Dose: 20 mg Clonidine (Catapres) 0.1 mg PO BID PRN PRN Reason: SBP Greater Than 170 Dextrose/Water (Dextrose 50%) 25 gm SLOW IVP PRN PRN PRN Reason: Hypoglycemia Last Admin: 02/02/18 05:40 Dose: 25 gm Epoetin Robbi (Procrit) 10,000 units SC Q7D [facility] Last Admin: 01/31/18 17:21 Dose: 10,000 units Glucagon (Glucagon) 1 mg IM PRN PRN PRN Reason: Hypoglycemia Dextrose/Water (D5w) 1,000 mls @ 0 mls/hr IV .Q0M PRN; As Directed PRN Reason: Hypoglycemia Fentanyl Citrate 2,000 mcg/ (Sodium Chloride) 100 mls @ 0 mls/hr IV INF [facility]; Per Protocol PRN Reason: Protocol Stop: 03/02/18 03:33 Dextrose/Sodium Chloride (D5 0.9% Ns) 1,000 mls @ 50 mls/hr IV .Q20H [facility] Last Admin: 02/02/18 05:41 Dose: 1,000 mls Fentanyl Citrate (Fentanyl Bolus) 250 mls @ 0 mls/hr IVPB PRN PRN; As Directed PRN Reason: Breakthrough pain/agitation Stop: 03/04/18 09:41 Insulin Human Lispro (Humalog) 0 units SC .MILD SLIDING SCALE PRN PRN Reason: Mild Correctional Scale Lorazepam (Ativan) 2 mg SLOW IVP Q1H PRN PRN Reason: Breakthrough agitation Stop: 03/04/18 09:41 Metoclopramide HCl (Reglan) 10 mg PER TUBE Q6H [facility] Last Admin: 02/02/18 09:20 Dose: Not Given Metronidazole (Flagyl) 500 mg PO TID [facility] Last Admin: 02/02/18 15:36 Dose: 500 mg Midodrine (Proamatine) 10 mg PO TID [facility] Last Admin: 02/02/18 15:36 Dose: 10 mg Morphine Sulfate (Morphine) 2 mg SLOW IVP Q1H PRN PRN Reason: breakthrough pain/agitation Stop: 05/12/18 09:41 Ondansetron HCl (Zofran) 4 mg IVP Q6H PRN PRN Reason: Nausea/Vomiting Last Admin: 01/30/18 11:36 Dose: 4 mg Pantoprazole Sodium (Protonix) 40 mg PO BID [facility] Last Admin: 02/02/18 09:18 Dose: 40 mg Phenytoin Sodium (Dilantin) 300 mg PO HS [facility] Last Admin: 02/01/18 20:38 Dose: 300 mg Propofol (Diprivan) 1,000 mg IV INF PRN; Protocol PRN Reason: TO ACHIEVE GOAL RASS Stop: 03/04/18 09:41 Propofol (Diprivan Bolus) 20 mg IV Q5MIN PRN PRN Reason: BREAKTHROUGH AGITATION Stop: 03/04/18 09:41 Sodium Chloride (Flush - Normal Saline) 10 ml IVF Q12HR [facility] Last Admin: 02/02/18 09:18 Dose: Not Given Sodium Chloride (Flush - Normal Saline) 10 ml IVF PRN PRN PRN Reason: Saline Flush Vancomycin HCl (First Vancomycin) 125 mg PO QID [facility] Last Admin: 02/02/18 12:29 Dose: 125 mg
[2018-02-02] MEDS: Atorvastatin Calcium 10 MG TAB PO SCH (21:15)
[2018-02-03] MEDS: Dextrose 5 % And 0.9 % NaCl 1,000 ML IV SCH ×2 (05:05→20:36)
[2018-02-03 05:58] LABS: Anion Gap 14 mmol/L (10-20); BUN (Urea Nitrogen) 11 mg/dL (7.0-18.7); Calc. Creatinine Clearance 20 mL/min (70-130); Carbon Dioxide 17 mmol/L (22-29); Chloride 107 mmol/L (98-107); Estimated GFR-MDRD 11; Glucose 77 mg/dL (70-105); Potassium 3.1 mmol/L (3.5-5.1); Sodium 135 mmol/L (136-145)
[2018-02-03] MEDS: Pantoprazole 40 MG GRANULES PACKET PO SCH ×2 (08:23→19:16)
[2018-02-03] MEDS: Midodrine HCl 5 MG TAB PO SCH ×3 (08:23→19:16)
[2018-02-03] MEDS: metroNIDAZOLE 500 MG TAB PO SCH ×3 (08:23→20:39)
[2018-02-03] MEDS: Vancomycin HCl 25 MG/ML Oral PO SCH ×4 (08:23→19:17)
[2018-02-03] MEDS: Citalopram 20 MG TAB PO SCH (08:23)
--- NOTE | 2018-02-03 10:54 | PRG ---
DATE OF SERVICE: 02/03/2018 SUBJECTIVE: The patient is awake and is able to nod and shake her head. PHYSICAL EXAMINATION: VITAL SIGNS: Temperature 97.8, pulse 64, blood pressure 100/45. HEENT: Remarkable for left cataract. NECK: No JVD. LUNGS: Coarse rhonchi. CARDIOVASCULAR: S1, S2 regular. ABDOMEN: Soft. EXTREMITIES: Left below the knee amputation, right toe amputations. LABORATORY DATA: Sodium 135, potassium 3.1, BUN 11, creatinine 4.5. ASSESSMENT: 1. End-stage renal disease. 2. End-stage cardiomyopathy. 3. Status post cardiac arrest. PLAN: It sounds like the family members are being located to visit the patient in preparation for te rminal extubation. The patient has been made DNR. I would agree with extubation when the time is ap propriate. She continued to receive oral antibiotics for C. difficile colitis. I would not be surpr ised if the patient did not do reasonably well, extubated, but I think ultimately her cardiac problem s will catch up to her.
[2018-02-03] MEDS ORDERED: Aquaphor 30 GM 99 GM, Cholestyramine/Aspartame 4 GM TOP PRN (11:31)
[2018-02-03 12:09] LABS: Actual Bicarbonate (HCO3a) 18.5 mEq/L (22-26); Base Excess (BEa) -6.4 mEq/L (0 (+/-) 2.5); CO2 Tension 33.8 mmHg (35.0-45.0); Hematocrit-ABG 21.9 % (36.0-47.0); Hemoglobin (Hb) 5.8 g/dL (12.0-16.0); O2 Tension (PaO2) 153.7 mmHg (80.0-100.0); pH, Arterial 7.36 (7.35-7.45)
[2018-02-03 12:10] LABS: Calcium, Ionized 1.2 mmol/L (1.12-1.30); Puncture Site LBA
--- NOTE | 2018-02-03 12:34 | PDOC.PN ---
- Subjective Encounter Start Date: 02/03/18 Encounter Start Time: 10:30 Subjective: pt intubated - Objective Resuscitation Status: Resuscitation Status DNR:Do Not Resuscitate Vital Signs & Weight: Vital Signs (12 hours) Temp Pulse Resp BP 02/03/18 11:08 63 95/47 L 02/03/18 10:00 18 02/03/18 08:00 98.1 F 02/03/18 06:00 14 02/03/18 04:00 18 02/03/18 03:00 97.8 F 02/03/18 02:57 64 02/03/18 02:00 16 Weight Admit Weight 176 lb Weight 177 lb 0.499 oz Most Recent Monitor Data Heart Rate from ECG 64 NIBP 95/47 NIBP BP-Mean 69 Respiration from ECG 19 SpO2 100 I&O: 02/02/18 02/03/18 02/04/18 06:59 06:59 06:59 Intake Total 1662 1597 Output Total 600 600 Balance 1062 997 Result Diagrams: 02/01/18 05:29 02/03/18 04:42 Additional Labs: Accuchecks 02/02/18 02/02/18 02/02/18 21:59 18:38 14:34 POC Glucose 87 90 83 02/01/18 02/01/18 05:30 04:53 POC Glucose 139 H 64 L Phys Exam - Physical Examination Neck: no nodes Respiratory: wheezing present Cardiovascular: RRR Gastrointestinal: soft obse, bsx2 Musculoskeletal: edema present Lymphatic: no nodes Dx/Plan - Plan acute resp failure Cardiac arrthymia htn diabetes PVD ESRD cdiff hypotension plan: pt * . (1) HTN (hypertension) Code(s): I10 - ESSENTIAL (PRIMARY) HYPERTENSION Status: Acute Comment: BP has been low. BP med on hold. Patient is not symptomatic . (2) Diabetes Code(s): E11.9 - TYPE 2 DIABETES MELLITUS WITHOUT COMPLICATIONS Status: Acute Comment: BS is satisfactory.. (3) PVD (peripheral vascular disease) Code(s): I73.9 - PERIPHERAL VASCULAR DISEASE, UNSPECIFIED Status: Acute (4) Clostridium difficile diarrhea Code(s): A04.72 - ENTEROCOLITIS D/T CLOSTRIDIUM DIFFICILE, NOT SPCF RECUR Status: Acute Plan: Diarrhea worse pt on reglan asked nurse to hold for now. Pt was on reglan for gastroparesis Continue Vancomycin, Flagyl. (5) Dyslipidemia Code(s): E78.5 - HYPERLIPIDEMIA, UNSPECIFIED Status: Chronic (6) ESRD (end stage renal disease) on dialysis Code(s): N18.6 - END STAGE RENAL DISEASE; Z99.2 - DEPENDENCE ON RENAL DIALYSIS Status: Chronic Comment: HB/HCT is low. On Erythropoietin.. f/u hb/hct. (7) Upper GI bleeding Code(s): K92.2 - GASTROINTESTINAL HEMORRHAGE, UNSPECIFIED Status: Acute Comment: s/p EGD. f/u hb/hct. - Plan -: Continue current therapy. -: Cardio on board. Reviewed note. Hold bp meds for now 02/03 pt is DNR waiting for pt's family to be ok not to reintubate if she becomes sob after removal of ET tube. * . Review of Systems - Review of Systems Other: unable to participate - Medications/Allergies Allergies/Adverse Reactions: Allergies Allergy/AdvReac Type Severity Reaction Status Date / Time No Known Drug Allergies Allergy Verified 11/03/17 11:31 Medications: Current Medications Acetaminophen (Tylenol) 650 mg PO Q4H PRN PRN Reason: Headache/Fever or Pain Last Admin: 01/28/18 16:37 Dose: 650 mg Acetaminophen (Tylenol) 650 mg UT Q4H PRN PRN Reason: Headache/Fever or Pain Atorvastatin Calcium (Lipitor) 10 mg PO HS [facility] Last Admin: 02/02/18 21:15 Dose: 10 mg Bisacodyl (Dulcolax) 10 mg PO DAILYPRN PRN PRN Reason: Constipation Citalopram Hydrobromide (Celexa) 20 mg PO DAILY [facility] Last Admin: 02/03/18 08:23 Dose: 20 mg Clonidine (Catapres) 0.1 mg PO BID PRN PRN Reason: SBP Greater Than 170 Mineral Oil/White Petrolatum 99 gm/ Cholestyramine Resin 4 gm 0 gm TOP BID [facility] Mineral Oil/White Petrolatum 99 gm/ Cholestyramine Resin 4 gm 0 gm TOP PRN PRN PRN Reason: Rash/Topical Irritation Dextrose/Water (Dextrose 50%) 25 gm SLOW IVP PRN PRN PRN Reason: Hypoglycemia Last Admin: 02/02/18 05:40 Dose: 25 gm Epoetin Robbi (Procrit) 10,000 units SC Q7D [facility] Last Admin: 01/31/18 17:21 Dose: 10,000 units Glucagon (Glucagon) 1 mg IM PRN PRN PRN Reason: Hypoglycemia Dextrose/Water (D5w) 1,000 mls @ 0 mls/hr IV .Q0M PRN; As Directed PRN Reason: Hypoglycemia Fentanyl Citrate 2,000 mcg/ (Sodium Chloride) 100 mls @ 0 mls/hr IV INF [facility]; Per Protocol PRN Reason: Protocol Stop: 03/02/18 03:33 Dextrose/Sodium Chloride (D5 0.9% Ns) 1,000 mls @ 50 mls/hr IV .Q20H [facility] Last Admin: 02/03/18 05:05 Dose: Not Given Fentanyl Citrate (Fentanyl Bolus) 250 mls @ 0 mls/hr IVPB PRN PRN; As Directed PRN Reason: Breakthrough pain/agitation Stop: 03/04/18 09:41 Insulin Human Lispro (Humalog) 0 units SC .MILD SLIDING SCALE PRN PRN Reason: Mild Correctional Scale Lorazepam (Ativan) 2 mg SLOW IVP Q1H PRN PRN Reason: Breakthrough agitation Stop: 03/04/18 09:41 Metronidazole (Flagyl) 500 mg PO TID [facility] Last Admin: 02/03/18 08:23 Dose: 500 mg Midodrine (Proamatine) 10 mg PO TID [facility] Last Admin: 02/03/18 08:23 Dose: 10 mg Morphine Sulfate (Morphine) 2 mg SLOW IVP Q1H PRN PRN Reason: breakthrough pain/agitation Stop: 03/04/18 09:41 Ondansetron HCl (Zofran) 4 mg IVP Q6H PRN PRN Reason: Nausea/Vomiting Last Admin: 01/30/18 11:36 Dose: 4 mg Pantoprazole Sodium (Protonix) 40 mg PO BID [facility] Last Admin: 02/03/18 08:23 Dose: 40 mg Phenytoin Sodium (Dilantin) 300 mg PO HS [facility] Last Admin: 02/02/18 21:16 Dose: 300 mg Propofol (Diprivan) 1,000 mg IV INF PRN; Protocol PRN Reason: TO ACHIEVE GOAL RASS Stop: 03/04/18 09:41 Propofol (Diprivan Bolus) 20 mg IV Q5MIN PRN PRN Reason: BREAKTHROUGH AGITATION Stop: 03/04/18 09:41 Sodium Chloride (Flush - Normal Saline) 10 ml IVF Q12HR [facility] Last Admin: 02/03/18 08:24 Dose: Not Given Sodium Chloride (Flush - Normal Saline) 10 ml IVF PRN PRN PRN Reason: Saline Flush Vancomycin HCl (First Vancomycin) 125 mg PO QID [facility] Last Admin: 02/03/18 08:23 Dose: 125 mg
[2018-02-03 12:41] VITALS: BMI 28.5
[2018-02-03] MEDS: Atorvastatin Calcium 10 MG TAB PO SCH (19:15)
[2018-02-03] MEDS ORDERED: Aquaphor 30 GM 99 GM, Cholestyramine/Aspartame 4 GM TOP SCH (21:00)
[2018-02-03] MEDS ORDERED: Lorazepam 2 MG/ML VIAL SLOW IVP PRN (22:09)
[2018-02-03] MEDS ORDERED: Morphine 4 MG/ML VIAL SLOW IVP PRN ×2 (22:10→22:11)
[2018-02-04 00:30] VITALS: BP 59/32; TEMP 97.2
[2018-02-04 05:59] LABS: Anion Gap 11 mmol/L (10-20); BUN (Urea Nitrogen) 15 mg/dL (7.0-18.7); Calc. Creatinine Clearance 18 mL/min (70-130); Calcium 8.1 mg/dL (7.8-10.44); Carbon Dioxide 18 mmol/L (22-29); Chloride 109 mmol/L (98-107); Estimated GFR-MDRD 9; Sodium 135 mmol/L (136-145)
[2018-02-04 06:07] LABS: Glucose 43 mg/dL (70-105); Potassium 2.9 mmol/L (3.5-5.1)
--- NOTE | 2018-02-04 14:37 | DS ---
DATE OF ADMISSION: 01/24/2018 DATE OF : 02/04/2018 at 5:00 in the morning. DISCHARGE DIAGNOSES: As the following, 1. Acute respiratory failure secondary to cardiac arrest ( pEA) 2. Cardiac arrest most likely secondary to cardiac arrhythmias. 3. End-stage renal disease. 4. Anemia. 5. Intermittent sinus bradycardia. 6. 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 HOSPITAL COURSE: The patient was a 47-year-old female who initially with past medical history of end-stage renal disease on dialysis, diabetes, peripheral vascular disease who initially presented to the hospital with complaints of nausea and vomiting. The patient stated initially that her nausea and vomiting was bright blood. Patient then was seen by Gastroenterology and underwent an EGD, which indicated 4 ulcers measuring 1-3 cm along the greater curvature of the stomach and incisors and grade C erosive esophagitis. The patient also at that time was undergoing dialysis per Nephrology and she was on Protonix. The patient also had an abdominal MRI, which just indicated enlargement of the common bile duct without any evidence of choledocholithiasis; however, on 01/29/2018, the patient became very hypotensive and had change in mental status. At that time, a code green was called and the patient was given a normal saline bolus, which seemed to improve her mentation. At that time, echocardiogram was ordered and Cardiology also was consulted. The patient also was started on midodrine given her low blood pressure. The patient had an echocardiogram, which indicated a good ejection fraction; however, had severe tricuspid regurgitation. She also on 01/29/2018 had a 6 second pause. The patient does have a history of a sick sinus syndrome ; however, she did have a pacemaker in, which was removed sometime in October in [place] given infection of her pacemaker lead. However, on the , she underwent possible torsades and a code blue was called and at that time she was intubated. She was then transferred to the ICU for further management. Patient 's clinical status continued to deteriorate. Unable to do significant dialysis given her hypotensive. Patient also was initially put on broad spectrum antibiotics. She was found to have C. diff colitis and was being treated for Clostridium difficile as well. Given the patient's multiple medical comorbidities including but not excluding end-stage renal disease, peripheral vascular disease, sinus bradycardia status post removal of her pacemaker due to a pacemaker lead infection, worsening hypotension even on midodrine, acute Clostridium difficile, upper gastrointestinal bleed, severe diabetes, seizure disorder, the patient was made comfort measures per family. The patient was extubated on 02/03/2018, however, and she was made to hospice. The patient then on 02/04/2018 at around 5:30 in the morning. VICTORIANO
--- NOTE | 2018-02-06 08:34 | PRG ---
DATE OF SERVICE: 02/03/2018 SUBJECTIVE: This is a patient of Dr. Laboy, but I was asked by the dialysis staff as to relate to whet her the patient needs to be dialyzed or not. I did visit this patient and the patient was noted to [place] in critical condition on life support with possibility of terminal extubation. The patient noted w ith the following vital signs. PHYSICAL EXAMINATION: VITAL SIGNS: Afebrile with temperature 97.8, pulse 64, blood pressure 100/45. HEENT: Unremarkable. Endotracheal tube in place. CARDIOVASCULAR: First and second heart sounds heard. RESPIRATORY: Reviewed, a lot of transmitted sounds and coerced sounds. ABDOMEN: Benign. Positive bowel sounds. EXTREMITIES: Shows peripheral edema. LABORATORY: Showed potassium of 3.1 with a creatinine of 4.5, bicarbonate of 17. IMPRESSION: 1. End-stage renal disease on hemodialysis, has not been dialyzed . 2. Hypokalemia. 3. Metabolic acidosis. 4. Cardiopulmonary failure. PLAN: After having discussion with the Pulmonary Critical Care, I was made a way that this patient l ikely to undergo terminal extubation. The critical care was in the family decision meanwhile, giving this prospect of terminal extubation, we will hold off on dialyzing this patient today.
--- NOTE | 2018-02-20 11:21 | EKG ---
Test Reason : Blood Pressure : / mmHG Vent. Rate : 053 BPM Atrial Rate : 053 BPM P-R Int : 194 ms QRS Dur : 110 ms QT Int : 490 ms P-R-T Axes : 042 056 078 degrees QTc Int : 459 ms Sinus bradycardia Nonspecific ST-T changes Abnormal ECG Confirmed by MICHELLE DUTTON M.D. ([id number]) on 02/20/2018 11:21:16 AM Referred By: DILCIA Confirmed By:MICHELLE DUTTON M.D.
--- NOTE | 2018-02-20 11:39 | EKG ---
Test Reason : CODE GREEN Blood Pressure : / mmHG Vent. Rate : 063 BPM Atrial Rate : 063 BPM P-R Int : 000 ms QRS Dur : 100 ms QT Int : 394 ms P-R-T Axes : 000 061 221 degrees QTc Int : 403 ms Normal sinus rhythm Abnormal ECG Confirmed by MICHELLE DUTTON M.D. ([id number]) on 02/20/2018 11:39:12 AM Referred By: RITCHIE Confirmed By:MICHELLE DUTTON M.D.
== END 2018-02-04 10:52 | disposition expired | DRG 377 ==
LOC: ERS 09:50 → ERHOLD 10:58 → 2NO 15:57 → CCU 01-31 03:13 → SURG B 02-04 00:23
PROVIDERS: ADMIT Internal Medicine; ATTEND Internal Medicine
PROC: 0DB68ZX Excision of Stomach, Via Natural or Artificial Opening Endoscopic, Diagnostic (ICD-10-PCS; principal; 2018-01-24)
PROC: 5A1D70Z Performance of Urinary Filtration, Intermittent, Less than 6 Hours Per Day (ICD-10-PCS; 2018-01-24)
PROC: 5A1945Z Respiratory Ventilation, 24-96 Consecutive Hours (ICD-10-PCS; 2018-01-31)
PROC: 0BH17EZ Insertion of Endotracheal Airway into Trachea, Via Natural or Artificial Opening (ICD-10-PCS; 2018-01-31)
DX: K25.4 Chronic or unspecified gastric ulcer with hemorrhage (principal); J96.00 Acute respiratory failure, unspecified whether with hypoxia or hypercapnia; E11.21 Type 2 diabetes mellitus with diabetic nephropathy; E11.22 Type 2 diabetes mellitus with diabetic chronic kidney disease; A04.72 Enterocolitis due to Clostridium difficile, not specified as recurrent; E11.43 Type 2 diabetes mellitus with diabetic autonomic (poly)neuropathy; I95.9 Hypotension, unspecified; I49.5 Sick sinus syndrome; K31.84 Gastroparesis; N18.6 End stage renal disease; E87.1 Hypo-osmolality and hyponatremia; E87.2 Acidosis; I42.9 Cardiomyopathy, unspecified; D62 Acute posthemorrhagic anemia; I07.1 Rheumatic tricuspid insufficiency; E11.51 Type 2 diabetes mellitus with diabetic peripheral angiopathy without gangrene; I46.2 Cardiac arrest due to underlying cardiac condition; R00.1 Bradycardia, unspecified; Z51.5 Encounter for palliative care; Z66 Do not resuscitate; K20.8 Other esophagitis; K82.8 Other specified diseases of gallbladder; G40.909 Epilepsy, unspecified, not intractable, without status epilepticus; Z99.2 Dependence on renal dialysis; E87.6 Hypokalemia; E78.5 Hyperlipidemia, unspecified; H54.62 Unqualified visual loss, left eye, normal vision right eye; K21.9 Gastro-esophageal reflux disease without esophagitis; F41.9 Anxiety disorder, unspecified; Z89.512 Acquired absence of left leg below knee; I10 Essential (primary) hypertension; F31.9 Bipolar disorder, unspecified; E11.649 Type 2 diabetes mellitus with hypoglycemia without coma
CPT/HCPCS: 36415; 36416; 71045; 74181; 80048; 80053; 82553; 82805; 83735; 84100; 84484; 85007; 85025; 85027; 85610; 85730; 86850; 86900; 86901; 87040; 87324; 87449; 87493; 88305; 88312; 90935; 93005; 93010; 93306; 94002; 94003; 96374; A4216; C9113; G0257; J0696; J2001; J2354; J2405; J2704; J3475; J7050; Q4081